=== PATIENT | female | born 1955 | race Caucasian/White ===

== ENCOUNTER 2020-04-26 15:15 | Outpatient (REF) | payer MEDICAID, SELFPAY | END 2020-04-26 15:16 | disposition home or self-care (01) | LOC: HO.LAB 15:15 | PROVIDERS: PCP Nurse Practitioner Family; Visit Provider Internal Medicine | DX: Z20.828 Contact with and (suspected) exposure to other viral communicable diseases (principal) | CPT/HCPCS: 36415; 87635 ==

== ENCOUNTER 2020-06-01 17:03 | Outpatient (REF) | payer MEDICAID, SELFPAY | END 2020-06-01 17:04 | disposition home or self-care (01) | LOC: HO.LAB 17:03 | PROVIDERS: PCP Nurse Practitioner Family; Visit Provider Internal Medicine | DX: Z20.828 Contact with and (suspected) exposure to other viral communicable diseases (principal) | CPT/HCPCS: C9803; U0003 ==

== ENCOUNTER 2020-06-07 15:00 | Outpatient (REF) | payer MEDICAID, SELFPAY | END 2020-06-07 15:01 | disposition home or self-care (01) | LOC: HO.LAB 15:00 | PROVIDERS: Visit Provider Internal Medicine | DX: Z20.828 Contact with and (suspected) exposure to other viral communicable diseases (principal) | CPT/HCPCS: C9803; U0003 ==

== ENCOUNTER 2021-05-19 13:51 | Outpatient (REF) | payer MEDICAID, SELFPAY ==
--- NOTE | ~2021-05-19 | XR_ITS ---
EXAMINATION: XR LUMBOSACRAL SPINE WITH OBLIQUES CLINICAL INFORMATION: Dorsalgia COMPARISON: 05/30/2018 TECHNIQUE: AP, both oblique, and lateral views of the lumbar spine. Lateral view of the lumbosacral junction. FINDINGS: No fracture or subluxation. Vertebral body height and alignment maintained. Rudimentary disc at S1-S2. Disc spaces are maintained throughout the lumbar spine. Tiny endplate osteophytes at the lower lumbar spine. The sacroiliac joints are symmetric. The sacrum appears intact. Nonobstructive bowel gas pattern. XR/XR lumbar spine 4V min IMPRESSION: Mild degenerative change at the lower lumbar spine.
== END 2021-05-19 13:52 | disposition home or self-care (01) ==
LOC: HO.XRAY 13:51
PROVIDERS: PCP General Practice; Visit Provider General Practice
DX: M54.89 Other dorsalgia (principal)
CPT/HCPCS: 72110

== ENCOUNTER 2021-09-09 16:21 | Emergency (ER) | payer MEDICAID, SELFPAY ==
--- NOTE | ~2021-09-09 | XR_ITS ---
EXAMINATION: XR CHEST CLINICAL INFORMATION: Shortness of breath. COMPARISON: Chest radiograph done on 04/02/[address] of the chest done on 04/23/2018. TECHNIQUE: Frontal view of the chest was obtained. FINDINGS: Previously documented multiple solid as well as cystic nodules best seen on prior CT study dated 04/23/2018 within the right hemithorax appear unchanged. The left lung field appears clear. Cardiac mediastinal silhouette is within normal limit. No evidence of any pleural effusion or pneumothorax. Overall, the radiographic appearance is stable since 04/02/2018. XR/XR chest 1V IMPRESSION: Stable radiographic appearance of the chest, unchanged since 04/02/2018.
[2021-09-09 16:40] VITALS: BP 130/70; PULSE 83; RESP 18; TEMP 37.2; O2SAT 96; BMI 32.8
--- NOTE | 2021-09-09 16:45 | ECG_ITS ---
Test Reason : DIFFICULTY BREATHING Blood Pressure : / mmHG Vent. Rate : 082 BPM Atrial Rate : 082 BPM P-R Int : 096 ms QRS Dur : 082 ms QT Int : 358 ms P-R-T Axes : -62 004 024 degrees QTc Int : 418 ms Normal sinus rhythm with short ME interval Abnormal ECG When compared with ECG of 16-DEC-2019 18:18, No significant changes when compared with the previous EKG of Referred By: Generic ED Physician Electronically Signed By:PHILLIP SULTANA MD
[2021-09-09 18:40] LABS: MANUAL DIFF FLAG NO
[2021-09-09 18:42] LABS: Basophils Absolute Auto 0.1 X10*3/uL (0.0-0.2); Basophils Percent Auto 0.8 % (0-2); Eosinophils Absolute Auto 0.1 X10*3/uL (0.0-0.4); Eosinophils Percent Auto 0.9 % (0-4); Hematocrit 39.1 % (37.0-47.0); Hemoglobin 12.9 g/dl (12.0-16.0); Imm Gran Abs Auto 0.02 X10*3/uL (0.00-0.03); Imm Gran Pct Auto 0.3 % (0.0-0.4); Lymphocytes Absolute Auto 2.6 X10*3/uL (1.2-4.9); Lymphocytes Percent Auto 33.8 % (20-40); Mean Corpuscular Hemoglobin 29.6 pg (27.0-33.0); Mean Corpuscular Volume 89.7 fL (80.0-98.0); Mean Platelet Volume 11.6 fL (9.4-12.3); Monocytes Absolute Auto 0.5 X10*3/uL (0.1-1.2); Monocytes Percent Auto 6.2 % (2-11); Neutrophils Absolute Auto 4.5 x10*3/uL (2.0-8.3); Platelet Count 207 X10*3/uL (160-400); Red Blood Count 4.36 X10*6/uL (4.20-5.50); Red Cell Distribution Width 13.3 % (11.0-16.0); White Blood Count 7.8 X10*3/uL (4.8-10.8)
[2021-09-09 18:56] LABS: Anion Gap 10 (12-20); Blood Urea Nitrogen 15 mg/dL (9-16); COVID-19 Test Negative (Negative); Carbon Dioxide 28 mmol/L (22-29); Chloride 101 mmol/L (96-108); Creatinine Clr Calc Pharmacy 69.1; Estimated Glomerular Filt Rate > 60; Glucose Random 275 mg/dL (60-115); Potassium 4.4 mmol/L (3.3-5.1); Sodium 135 mmol/L (135-145)
[2021-09-09 19:01] LABS: B Type Natriuretic Peptide 41 pg/mL (<100); Troponin-I High Sensitivity < 3.5 ng/L (<3.5-17.0)
--- NOTE | 2021-09-09 21:12 | ED_ITS ---
HPI - Asthma General Chief Complaint: Asthma Stated Complaint: diff breathing/chestpains Time Seen by Provider: 09/09/21 21:12 Source: patient Mode of arrival: ambulatory Limitations: no limitations History of Present Illness HPI Narrative: This is a 65-year-old female past medical history significant for asthma pr esenting to the emergency department with complaints of cough productive of thick yellow/green sputum, chest pain only when she coughs, shortness of breath on exertion, congestion x4 days progressively worsening. She tells me this feels like her typical asthma attack. She has been using her albuterol pumps and her nebulizer at home. She tells me she has not been around anyone who is sick. She denies fevers, chills, nausea, vomiting, abdominal pain, leg swelling, leg pain, calf pain, headache, dizziness, sore throat, ear pain. She has never required intubation for asthma. She appears comfortable, speaking in full sentences in no signs of acute distress. No use of accessory muscles. MD complaint: asthma attack Onset (ago): day(s) (4) Severity: moderate Context: none known Associated symptoms: productive cough Treatments Prior to Arrival: inhaled bronchodilator Related Data Previous Rx's Medication Instructions Recorded albuterol sulfate 90 mcg/actuation 2 inh INHALATION Q4-6H PRN #1 ea 09/09/21 breath activated powder inhaler azithromycin 250 mg tablet See Rx Instructions .ROUTE 09/09/21 .COMPLEX #6 tab prednisone 20 mg tablet 20 mg PO DAILY 5 Days #5 tab 09/09/21 Allergies Allergy/AdvReac Type Severity Reaction Status Date / Time almond [ALMOND] Allergy Severe ANAPHYLAXIS Unverified 04/08/20 15:54 loratadine Allergy Unknown Verified 10/13/19 00:00 penicillin G procaine Allergy Unknown Verified 01/12/20 00:00 penicillin V Allergy Unknown Verified 10/13/19 00:00 Penicillins Allergy Unknown SWELLING Unverified 04/08/20 15:54 [place] Allergy Unknown Uncoded 10/13/19 00:00 PEANUT BUTTER Allergy Unknown HIVES Uncoded 04/08/20 15:54 Review of Systems Review of Systems: Constitutional : No Weight loss, No Fever, No Chills, No Fatigue, No Malaise ENT/Mouth : No sore throat, No Rhinorrhea Eyes: No Eye Pain, No Swelling, No Redness Cardiovascular : + Chest Pain, + SOB, + Dyspnea on Exertion, No Orthopnea, No Edema, No Palpitations Respiratory : + Cough, No Sputum, No Wheezing Gastrointestinal : No Nausea, No Vomiting, No Diarrhea, No Constipation, No abdominal Pain, No Hematochezia, No Melena Genitourinary : No Dysuria, No Urinary Frequency, No Hematuria, Musculoskeletal : No joint pain, No Myalgias, No Joint Swelling Skin : No Skin Lesions, No rash Neuro : No Weakness, No Numbness, No Dizziness, No Headache All other systems reviewed and are negative Yes all other systems are reviewed and are negative [facility]LY [facility] Past Medical History Attestation statement: The following information was validated with the patient. Source: old records reviewed and nursing notes reviewed Social History Social History Advance Directives: No Patient : No Physical Exam Vital Signs: Vital Signs: Last Vital Signs Temp 98.9 F 09/09/21 16:40 Pulse 83 09/09/21 16:40 Resp 18 09/09/21 16:40 BP 130/70 09/09/21 16:40 Pulse Ox 96 09/09/21 16:40 BMI result Body Mass Index 32.8 VSS Appearance: Alert.? Oriented X3.? No acute distress.? No accessory muscle use for breathing. Head: Normocephalic, atraumatic, no step-offs or deformities Eyes: Pupils equal, round and reactive to light.? ENT: Pharynx normal.? Neck: Normal inspection.? Neck supple.? CVS: Normal heart rate and rhythm.? Pulses normal.? Respiratory: No respiratory distress.? Breath sounds normal.?No wheezing. Abdomen: Soft and nontender.? Skin: Skin warm and dry.? Normal skin color.? Normal skin turgor.? Extremities: No lower extremity edema.? No calf ttp negative Homans sign bilaterally 5/5 strength to bilateral upper and lower extremities Back: No midline tenderness, no C-spine tenderness, full range of motion, no CVA tenderness bilaterally Neuro: Oriented X 3.? No motor deficit.? No sensory deficit. Course Reevaluation(s) Reevaluation #1: CBC within normal limits. Chemistry with no acute electrolyte abnormalities. Troponin negative. D-dimer pending. COVID negative. X-ray appears to be a patient's baseline no acute findings. Time: 18:35 Reevaluation #2: D-dimer negative. Unlikely PE. Patient's discomfort has improved and she has been here. She will be sent home with prednisone, azithromycin and an inhaler. Advised her to return with new or worsening symptoms. Comfortable discharge home with PCP follow-up. Disucused EKG w/ attending non ischemic, negative trop patient not having chest pain. She should follow up with cardiology Time: 22:42 MDM - Asthma MDM Narrative Medical decision making narrative: 2109 65 yo f pmhx well controlled asthma presents to ed with URI sx X 4 days. Vaccinated for covid X2 unknown vaccine. No sick contact. PE benign. Hx and physical not consistent with pulmonary embolism (PERC score 1 for age) or acute coronary syndrome ( CP only present with cough). Unlikely pneumonia. Plan- labs, EKG, covid, chest xray Medical Records Attestation: I reviewed the patient's medical records. Lab Data Attestation: I reviewed the patient's lab results. Result diagrams: 09/09/21 18:34 09/09/21 18:34 Labs: Lab Results 09/09/21 09/09/21 09/09/21 Range/Units 18:34 18:34 18:34 WBC 7.8 (4.8-10.8) X10*3/uL RBC 4.36 (4.20-5.50) X10*6/uL Hgb 12.9 (12.0-16.0) g/dl Hct 39.1 (37.0-47.0) % MCV 89.7 (80.0-98.0) fL MCH 29.6 (27.0-33.0) pg MCHC 33.0 (31.0-35.0) g/dl RDW 13.3 (11.0-16.0) % Plt Count 207 (160-400) X10*3/uL MPV 11.6 (9.4-12.3) fL Immature Gran % (Auto) 0.3 (0.0-0.4) % Neut % (Auto) 58.0 (45-73) % Lymph % (Auto) 33.8 (20-40) % Waller % (Auto) 6.2 (2-11) % Eos % (Auto) 0.9 (0-4) % Baso % (Auto) 0.8 (0-2) % Lymph # (Auto) 2.6 (1.2-4.9) X10*3/uL Waller # (Auto) 0.5 (0.1-1.2) X10*3/uL Eos # (Auto) 0.1 (0.0-0.4) X10*3/uL Baso # (Auto) 0.1 (0.0-0.2) X10*3/uL Abs Immat Gran (auto) 0.02 (0.00-0.03) X10*3/uL Absolute Neuts (auto) 4.5 (2.0-8.3) x10*3/uL Absolute Nucleated RBC 0.000 (0.0-0.012) X10*3/uL Nucleated RBC % (auto) 0.0 (0.0-0.2) /100WBC D-Dimer High Sensitivty NG/ML Sodium 135 (135-145) mmol/L Potassium 4.4 (3.3-5.1) mmol/L Chloride 101 (96-108) mmol/L Carbon Dioxide 28 (22-29) mmol/L Anion Gap 10 L (12-20) BUN 15 (9-16) mg/dL Creatinine 0.76 (0.5-1.4) mg/dL Estim Creat Clear Calc 69.1 Estimated GFR > 60 Random Glucose 275 H (60-115) mg/dL Calcium 10.0 (8.4-10.2) mg/dL Troponin I High Sens (<3.5-17.0) ng/L B-Natriuretic Peptide (<100) pg/mL COVID-19 (TRE) Negative (Negative) COVID-19 Clin Com See Note 09/09/21 09/09/21 Range/Units 18:34 21:22 WBC (4.8-10.8) X10*3/uL RBC (4.20-5.50) X10*6/uL Hgb (12.0-16.0) g/dl Hct (37.0-47.0) % MCV (80.0-98.0) fL MCH (27.0-33.0) pg MCHC (31.0-35.0) g/dl RDW (11.0-16.0) % Plt Count (160-400) X10*3/uL MPV (9.4-12.3) fL Immature Gran % (Auto) (0.0-0.4) % Neut % (Auto) (45-73) % Lymph % (Auto) (20-40) % Waller % (Auto) (2-11) % Eos % (Auto) (0-4) % Baso % (Auto) (0-2) % Lymph # (Auto) (1.2-4.9) X10*3/uL Waller # (Auto) (0.1-1.2) X10*3/uL Eos # (Auto) (0.0-0.4) X10*3/uL Baso # (Auto) (0.0-0.2) X10*3/uL Abs Immat Gran (auto) (0.00-0.03) X10*3/uL Absolute Neuts (auto) (2.0-8.3) x10*3/uL Absolute Nucleated RBC (0.0-0.012) X10*3/uL Nucleated RBC % (auto) (0.0-0.2) /100WBC D-Dimer High Sensitivty 152 NG/ML Sodium (135-145) mmol/L Potassium (3.3-5.1) mmol/L Chloride (96-108) mmol/L Carbon Dioxide (22-29) mmol/L Anion Gap (12-20) BUN (9-16) mg/dL Creatinine (0.5-1.4) mg/dL Estim Creat Clear Calc Estimated GFR Random Glucose (60-115) mg/dL Calcium (8.4-10.2) mg/dL Troponin I High Sens < 3.5 (<3.5-17.0) ng/L B-Natriuretic Peptide 41 (<100) pg/mL COVID-19 (TRE) (Negative) COVID-19 Purveyour Com ECG Data Attestation: I personally reviewed and interpreted this ECG as follows: ECG interpretation date: 09/09/21 ECG interpretation time: 21:15 Prior ECG tracings: available for review Interpretation: Ventricular rate of 82, MD short, QRS normal, QT/QTC normal. EKG shows a junctional tachycardia with short MD. No ST elevations or inversions concerning for ischemia. When compared to EKG of November 2019 it appears as though patient is now having a junctional rhythm rather than sinus tachycardia. Critical Care Time Critical Care Time Critical Care Time: No Discharge Plan Discharge Clinical Impression: Bronchitis Patient Disposition: Home, Self-Care Instructions: Acute Bronchitis (ED), How to Use a Dry-Powder Inhaler (ED) Additional Instructions: Take your medications as prescribed. If you were prescribed antibiotics today, it is important that you take your medication to their entirety, do not skip any doses, do not finish them early. Follow-up with your primary care provider this week. Return to the emergency department with new or worsening symptoms. Such as chest pain, shortness of breath, fevers, chills, leg swelling, calf pain, nausea, vomiting, diarrhea, headache, dizziness, weakness, changes in speech or ambulation. In case of emergency call 911 Your EKG showed some changes please follow up with cardiology Prescriptions: New azithromycin 250 mg tablet See Rx Instructions .ROUTE .COMPLEX Qty: 6 0RF Rx Instructions: For 250 mg dose pack: take 500 mg today (day 1), then 250 mg for 4 days (days 2-5) albuterol sulfate 90 mcg/actuation aerosol powdr breath activated 2 inh inhalation Q4-6H PRN (Reason: shortness of breath) Qty: 1 0RF prednisone 20 mg tablet 20 mg PO DAILY 5 Days Qty: 5 0RF Referrals: Galina Arrington MD [Primary Care Provider] - 2 days Mac Solomon MD [Physician] - 3 days Stand Alone Forms: Work/School Release
[2021-09-09] MEDS: Albuterol Sulfate 90 MCG 8 GM INHALER 2 PUFF INHALE (22:03)
[2021-09-09 22:27] LABS: D Dimer High Sensitivity 152 NG/ML
== END 2021-09-09 23:12 | disposition home or self-care (01) ==
PROVIDERS: Physician Assistant; Emergency Provider Emergency Medicine; PCP General Practice
DX: J40 Bronchitis, not specified as acute or chronic (principal); R06.02 Shortness of breath; Z20.822 Contact with and (suspected) exposure to COVID-19
CPT/HCPCS: 36415; 71045; 80048; 83880; 84484; 85025; 85379; 87635; 93005; 99284

== ENCOUNTER 2022-01-05 14:46 | Outpatient (REF) | payer MEDICAID, SELFPAY ==
--- NOTE | ~2022-01-05 | MM_ITS ---
EXAMINATION: MM SCREENING DIGITAL BREAST TOMOSYNTHESIS, BILATERAL CLINICAL INFORMATION: Screening. Asymptomatic. The lifetime risk of breast cancer based on the Tyrer-Cuzick Model is 4%. COMPARISON: Mammography: 12/12/2018, 04/16/2017, 08/11/2015 TECHNIQUE: Digital breast tomosynthesis is performed in both the craniocaudal and mediolateral oblique views along with computer-aided detection (CAD). Synthesized 2D images are generated from the tomosynthesis. FINDINGS: There are scattered areas of fibroglandular density (ACR BI-RADS breast composition Category b). Parenchymal pattern is similar to prior exams. There is scattered benign-appearing smooth nodularity bilateral outer breasts and anterior central right breast. There is no developing density or interval architectural abnormality. Some scattered vascular and punctate benign round and rim calcifications are again seen. The axilla and skin contours are unremarkable. MM/MM tomosynthesis screening BI IMPRESSION: No significant changes from prior exams. ASSESSMENT: BI-RADS 2: Benign RECOMMENDATION: Routine annual mammography screening. This patient's information was entered into a reminder system with a target due date for their next mammogram.
== END 2022-01-05 14:47 | disposition home or self-care (01) ==
LOC: HO.MAMMO 14:46
PROVIDERS: PCP General Practice; Visit Provider General Practice
DX: Z12.31 Encounter for screening mammogram for malignant neoplasm of breast (principal)
CPT/HCPCS: 77063; 77067

== ENCOUNTER → 2022-04-26 15:21 | Outpatient (BNVA) | payer MEDICAID, SELFPAY | PROVIDERS: PCP General Practice; Visit Provider Surgery | DX: K64.4 Residual hemorrhoidal skin tags (principal); D17.22 Benign lipomatous neoplasm of skin and subcutaneous tissue of left arm; D17.21 Benign lipomatous neoplasm of skin and subcutaneous tissue of right arm | CPT/HCPCS: 46600; 99202 ==

== ENCOUNTER 2023-02-16 19:22 | Outpatient (REF) | payer MEDICAID, SELFPAY | END 2023-02-16 19:23 | disposition home or self-care (01) | LOC: HO.HHCLNP 19:22 | PROVIDERS: Visit Provider General Practice | DX: Z13.89 Encounter for screening for other disorder (principal) ==

== ENCOUNTER 2023-02-16 19:23 | Outpatient (REF) | payer OTHER, MEDICAID, SELFPAY ==
[2023-02-17 14:35] LABS: BV Int Neg Control Negative (Negative); BV Int Pos Control Positive (Positive)
[2023-02-23 06:10] LABS: HPV mRNA E6/E7 rflx Not Detected (Not Detected)
== END 2023-02-16 19:24 | disposition home or self-care (01) ==
LOC: HO.HHCLNP 19:23
PROVIDERS: Visit Provider General Practice
DX: Z01.419 Encounter for gynecological examination (general) (routine) without abnormal findings (principal)
CPT/HCPCS: 87480; 87510; 87624; 87660; 88142

== ENCOUNTER 2023-08-28 | Outpatient (REF) | payer OTHER, SELFPAY | END 2023-08-28 00:01 | disposition home or self-care (01) | LOC: HO.HHCLNP | PROVIDERS: Visit Provider Emergency Medicine | DX: R10.9 Unspecified abdominal pain (principal); R30.0 Dysuria | CPT/HCPCS: 87086 ==

== ENCOUNTER 2023-10-24 14:43 | Outpatient (REF) | payer OTHER, SELFPAY ==
[2023-10-24 16:03] LABS: MANUAL DIFF FLAG NO
[2023-10-24 17:36] LABS: Basophils Percent Auto 0.7 % (0-2); Eosinophils Absolute Auto 0.1 X10*3/uL (0.0-0.4); Eosinophils Percent Auto 1.7 % (0-4); Hemoglobin 14.9 g/dl (12.0-16.0); Imm Gran Abs Auto 0.01 X10*3/uL (0.00-0.03); Imm Gran Pct Auto 0.2 % (0.0-0.4); Lymphocytes Absolute Auto 2.3 X10*3/uL (1.2-4.9); Mean Corpuscular HGB Conc 32.4 g/dl (31.0-35.0); Mean Corpuscular Hemoglobin 29.4 pg (27.0-33.0); Mean Corpuscular Volume 90.7 fL (80.0-98.0); Mean Platelet Volume 12.5 fL (9.4-12.3); Monocytes Absolute Auto 0.4 X10*3/uL (0.1-1.2); Monocytes Percent Auto 7.6 % (2-11); Neutrophils Absolute Auto 2.9 x10*3/uL (2.0-8.3); Neutrophils Percent Auto 49.8 % (45-73); Platelet Count 191 X10*3/uL (160-400); Red Blood Count 5.07 X10*6/uL (4.20-5.50); White Blood Count 5.8 X10*3/uL (4.8-10.8)
[2023-10-24 19:13] LABS: Alanine Aminotransferase 21 U/L (0-31); Alkaline Phosphatase 97 U/L (39-117); Anion Gap 10 (12-20); Aspartate Amino Transferase 15 U/L (5-31); Bilirubin Total 0.4 mg/dL (0.0-1.0); Blood Urea Nitrogen 20 mg/dL (9-16); Calcium 10.4 mg/dL (8.4-10.2); Carbon Dioxide 30 mmol/L (22-29); Chloride 102 mmol/L (96-108); Estimated Glomerular Filt Rate > 60; Glucose Random 427 mg/dL (60-115); Sodium 138 mmol/L (135-145); Total Protein 8.1 g/dL (6.5-8.0)
== END 2023-10-24 14:44 | disposition home or self-care (01) ==
LOC: HO.LAB 14:43
PROVIDERS: PCP General Practice; Visit Provider Nurse Practitioner
DX: Z01.818 Encounter for other preprocedural examination (principal); D12.6 Benign neoplasm of colon, unspecified
CPT/HCPCS: 36415; 80053; 85025

== ENCOUNTER 2024-05-26 22:50 | Emergency (ER) | payer OTHER, SELFPAY ==
--- NOTE | ~2024-05-26 | CT_ITS ---
EXAMINATION: CT ABDOMEN AND PELVIS WITHOUT CONTRAST CLINICAL INFORMATION: Abdominal pain. COMPARISON: April 21, 2015 TECHNIQUE: Multidetector volumetric imaging was performed from the superior aspect of the liver through the pubic symphysis. Sagittal and coronal reformatted images were obtained on the technologist's workstation. This CT examination was performed using dose optimization techniques as appropriate, variously including the following: *Automated exposure control *Adjustment of mA and/or kV according to patient size (this includes techniques or standardized protocols for targeted exams where dose is matched to indication/reason for exam; i.e. extremities or head) *Use of iterative reconstruction technique DLP: 523 mGy-cm FINDINGS: LUNG BASES: There is scarring at the right lung base. LIVER, GALLBLADDER, AND BILIARY TREE: The liver is normal in size, shape, and attenuation. No focal hepatic lesion or biliary ductal dilatation is present. The gallbladder is unremarkable with no evidence of radiopaque gallstones, gallbladder wall thickening, or obvious pericholecystic inflammatory changes. PANCREAS: Unremarkable. SPLEEN: Unremarkable. ADRENAL GLANDS: There is left adrenal gland nodularity similar to prior. KIDNEYS AND URETERS: The kidneys are normal in size, shape, and attenuation. No hydronephrosis, hydroureter, or calculi seen. No perinephric stranding. BLADDER: Unremarkable. GASTROINTESTINAL TRACT: The small and large bowel are unremarkable. The appendix is unremarkable. ABDOMINAL WALL: No significant hernia is appreciated. LYMPH NODES: Normal. VASCULAR: There is mild atherosclerotic plaque of the abdominal aorta. PELVIC VISCERA: Unremarkable. OSSEOUS STRUCTURES: Unremarkable. CT/CT abdomen pelvis wo IV con IMPRESSION: No acute intra-abdominal or pelvic abnormality. Fleischner guidelines were followed. Electronically signed by: Alec Mazariegos MD 05/27/2024 04:52 AM EST
[2024-05-26 22:54] VITALS: BP 145/79; PULSE 83; RESP 20; TEMP 36.8; O2SAT 97; BMI 29.3
[2024-05-26 23:46] LABS: MANUAL DIFF FLAG NO
[2024-05-26 23:49] LABS: Basophils Absolute Auto 0.1 X10*3/uL (0.0-0.2); Basophils Percent Auto 0.6 % (0-2); Eosinophils Absolute Auto 0.1 X10*3/uL (0.0-0.4); Eosinophils Percent Auto 1.3 % (0-4); Hematocrit 41.9 % (37.0-47.0); Hemoglobin 13.8 g/dl (12.0-16.0); Imm Gran Abs Auto 0.02 X10*3/uL (0.00-0.03); Imm Gran Pct Auto 0.2 % (0.0-0.4); Lymphocytes Absolute Auto 2.5 X10*3/uL (1.2-4.9); Lymphocytes Percent Auto 30.1 % (20-40); Mean Corpuscular HGB Conc 32.9 g/dl (31.0-35.0); Mean Corpuscular Hemoglobin 30.1 pg (27.0-33.0); Mean Corpuscular Volume 91.5 fL (80.0-98.0); Monocytes Absolute Auto 0.6 X10*3/uL (0.1-1.2); Monocytes Percent Auto 7.4 % (2-11); Neutrophils Absolute Auto 5.1 x10*3/uL (2.0-8.3); Neutrophils Percent Auto 60.4 % (45-73); Platelet Count 205 X10*3/uL (160-400); Red Blood Count 4.58 X10*6/uL (4.20-5.50); Red Cell Distribution Width 12.9 % (11.0-16.0); White Blood Count 8.4 X10*3/uL (4.8-10.8)
[2024-05-27 00:02] LABS: Alanine Aminotransferase 23 U/L (0-31); Alkaline Phosphatase 77 U/L (39-117); Anion Gap 9 (12-20); Aspartate Amino Transferase 22 U/L (5-31); Bilirubin Total 0.3 mg/dL (0.0-1.0); Blood Urea Nitrogen 11 mg/dL (9-16); Calcium 9.9 mg/dL (8.4-10.2); Carbon Dioxide 29 mmol/L (22-29); Chloride 105 mmol/L (96-108); Creatinine Clr Calc Pharmacy 56.7; Estimated Glomerular Filt Rate > 60; Glucose Random 142 mg/dL (60-115); Potassium 4.2 mmol/L (3.3-5.1); Sodium 139 mmol/L (135-145)
--- NOTE | 2024-05-27 02:13 | ED_ITS ---
HPI - Abdominal Pain General Chief Complaint: Abdominal Pain Stated Complaint: R Side Stomach Pain Time Seen by Provider: 05/27/24 02:07 Source: patient and recruiting assistant Mode of arrival: ambulatory Limitations: no limitations History of Present Illness ED Provider: DR. Toledo HPI narrative: 68-year-old female for evaluation of right-sided abdominal pain started 4 days ago that is getting worse since yesterday, pain is associated with nausea, no vomiting, no blood in the stool, no diarrhea, no fever, no chills. intra-abdominal surgery is significant for tubal ligation, last bowel movement was this with normal or diarrhea. No dysuria, no frequency urination, no blood in the urine. Related Data Home Medications ?Medication ?Instructions ?Recorded ?Confirmed diphenhydramine HCl 25 mg tablet 25 mg PO BEDTIME PRN allergies 10/24/23 (Banophen) dulaglutide 0.75 mg/0.5 mL mg subcut 10/24/23 subcutaneous pen injector (Trulicity) fluticasone propionate 50 2 spray intranasal DAILY PRN 10/24/23 mcg/actuation nasal spray,suspension gabapentin 300 mg capsule 300 mg PO TID 10/24/23 glipizide 5 mg tablet, extended 5 mg PO DAILY 10/24/23 release 24 hr isosorbide mononitrate 60 mg 60 mg PO QAM 10/24/23 tablet,extended release 24 hr meclizine 25 mg tablet 25 mg PO TID PRN 10/24/23 montelukast 10 mg tablet 10 mg PO DAILY 10/24/23 pantoprazole 40 mg tablet,delayed 40 mg PO QAM 10/24/23 release rosuvastatin 40 mg tablet 40 mg PO DAILY 10/24/23 Previous Rx's ?Medication ?Instructions ?Recorded albuterol sulfate 90 mcg/actuation 2 inh inhalation Q4-6H PRN 09/09/21 breath activated powder inhaler shortness of breath #1 ea bisacodyl 5 mg tablet,delayed 10 mg (2 x 5 mg) PO BEDTIME 2 days 10/24/23 release (Dulcolax (bisacodyl)) #4 tabs peg 3350-electrolytes 236 240 ml PO Q10M 1 day #4,000 mL 10/24/23 gram-22.74 gram-6.74 gram-5.86 gram solution (Golytely) Allergies Allergy/AdvReac Type Severity Reaction Status Date / Time almond [ALMOND] Allergy Severe ANAPHYLAXIS Verified 05/26/24 22:55 penicillin G procaine Allergy Unknown Unknown Verified 05/26/24 22:55 penicillin V Allergy Unknown Unknown Verified 05/26/24 22:55 Penicillins Allergy Unknown SWELLING Verified 05/26/24 22:55 Review of Systems Review of Systems All other systems are reviewed and are negative Constitutional: Reports as per HPI and Reports no additional constitutional complaints Eyes: Reports as per HPI and Reports no additional eye complaints Reports system reviewed and no additional complaints, except as documented Cardiovascular: Reports as per HPI and Reports no additional cardiovascular complaints Respiratory: Reports as per HPI and Reports no additional respiratory complaints Gastrointestinal: Reports as per HPI and Reports no additional gastrointestinal complaints Genitourinary: Reports no additional female genitourinary complaints Musculoskeletal: Reports no additional musculoskeletal complaints Skin/Breast: Reports system reviewed and no additional complaints, except as docu Psychiatric: Reports no additional psychiatric complaints Endocrine: Reports no additional endocrine complaints Hematologic/Lymphatic: Reports no additional hematologic/lymphatic complaints Allergic/Immunologic: Reports no additional allergic/immunologic complaints Reports system reviewed and no additional complaints, except as documented and Reports Abnormal speech present [facility] Past Medical History Medical History Multiple lipomas External hemorrhoids Surgical History H/O tubal ligation H/O colonoscopy Family History Family History Sister Lung cancer Social History Social History Alcohol intake: never Patient Tobacco Use Status: Never used Tobacco Advance Directives: No Advance Directives Information Provided: No Physical Exam ED Vital Signs: Vital Signs - 24 hr 05/26/24 22:54 05/27/24 03:30 Temperature 98.3 F 97.9 F Pulse Rate 83 73 Respiratory Rate 20 16 Blood Pressure 145/79 H 108/49 L Pulse Oximetry 97 97 Oxygen Delivery Method Room Air Room Air BMI result Body Mass Index 29.3 Vital signs have been reviewed and appear to be correct. Blood pressure elevated. Heart rate normal. Respiratory rate normal. Temperature normal. Oxygen saturation normal. Appearance: Alert. Oriented X3. No acute distress. Head: Normal external exam. Normocephalic. Atraumatic. No Lewis signs noted. No raccoon eyes noted Eyes: PERRLA. EOMI. Conjunctiva and sclera normal. Eyelids normal. ENT: TM's Normal. Pharynx normal. Uvula midline. Moist mucous membranes. No trismus noted. No drooling noted. No muffled voice noted. Neck: Normal inspection. Neck supple. FROM. No adenopathy. Thyroid Normal. No meningeal signs. No neck mass noted. CVS: Normal heart rate and rhythm. Heart sound normal. No murmurs noted. Pulses normal throughout. Respiratory: No respiratory distress. Painless inspiration. Breath sounds normal. No wheezes/rales/rhonchi noted. Chest nontender. No accessory muscle usage noted or decreased air movement noted. Abdomen: Soft, mild right lower quadrant abdominal tenderness, no rebound tenderness, no guarding. Bowel sounds normal in all 4 quadrants. No distention noted. No organomegaly noted. No visible injury noted. Back: No CVA tenderness. Full range of motion noted. Skin: Skin warm and dry. Normal skin color. Normal skin turgor. No rashes/lesions/lacerations noted. Extremities: No lower extremity edema. Extremities exhibit normal range of motion. Extremities nontender. Neuro: Oriented X 3. Cranial nerve exam: II-XII are grossly intact No motor deficit. No sensory deficit. Reflexes normal. Course Reevaluation(s) Reevaluation #1: Unremarkable CT abdomen and pelvis normal appendix on the CT, labs are unremarkable, no UTI. Will discharge to follow-up with PCP abdominal pain is likely secondary abdominal wall muscle. Instructed to use Tylenol/ibuprofen if needed. Time: 05:01 Medical Decision Making Differential Diagnosis Differential Diagnoses: The differential diagnosis associated with the presentation includes (Acute appendicitis, colitis, diverticulitis, hernia, electrolyte derangement, UTI, pyelonephritis, obstructive uropathy, severe anemia.) Admission/Observation Consideration of admission/observation: Escalation of care including admission/observation considered Lab Data MDM Lab Attestation statement: I reviewed the patient's lab results. 05/26/24 23:42 05/26/24 23:42 Labs: Lab Results 05/26/24 05/27/24 Range/Units 23:42 02:19 WBC 8.4 (4.8-10.8) X10*3/uL RBC 4.58 (4.20-5.50) X10*6/uL Hgb 13.8 (12.0-16.0) g/dl Hct 41.9 (37.0-47.0) % MCV 91.5 (80.0-98.0) fL MCH 30.1 (27.0-33.0) pg MCHC 32.9 (31.0-35.0) g/dl RDW 12.9 (11.0-16.0) % Plt Count 205 (160-400) X10*3/uL MPV 11.0 (9.4-12.3) fL Immature Gran % (Auto) 0.2 (0.0-0.4) % Neut % (Auto) 60.4 (45-73) % Lymph % (Auto) 30.1 (20-40) % [place] % (Auto) 7.4 (2-11) % Eos % (Auto) 1.3 (0-4) % Baso % (Auto) 0.6 (0-2) % Lymph # (Auto) 2.5 (1.2-4.9) X10*3/uL [place] # (Auto) 0.6 (0.1-1.2) X10*3/uL Eos # (Auto) 0.1 (0.0-0.4) X10*3/uL Baso # (Auto) 0.1 (0.0-0.2) X10*3/uL Abs Immat Gran (auto) 0.02 (0.00-0.03) X10*3/uL Absolute Neuts (auto) 5.1 (2.0-8.3) x10*3/uL Absolute Nucleated RBC 0.000 (0.0-0.012) X10*3/uL Nucleated RBC % (auto) 0.0 (0.0-0.2) /100WBC Sodium 139 (135-145) mmol/L Potassium 4.2 (3.3-5.1) mmol/L Chloride 105 (96-108) mmol/L Carbon Dioxide 29 (22-29) mmol/L Anion Gap 9 L (12-20) BUN 11 (9-16) mg/dL Creatinine 0.84 (0.5-1.4) mg/dL Estim Creat Clear Calc 56.7 Estimated GFR > 60 Random Glucose 142 H (60-115) mg/dL Calcium 9.9 (8.4-10.2) mg/dL Total Bilirubin 0.3 (0.0-1.0) mg/dL AST 22 (5-31) U/L ALT 23 (0-31) U/L Alkaline Phosphatase 77 (39-117) U/L Total Protein 8.0 (6.5-8.0) g/dL Albumin 4.0 (3.5-5.0) g/dL Urine Color Yellow Urine Appearance Clear Urine pH 6.5 (5.0-9.0) Ur Specific [place] 1.020 (1.005-1.025) Urine Protein Negative (Neg-Trace) mg/dL Urine Glucose (UA) Negative (Negative) mg/dL Urine Ketones Negative (Negative) mg/dL Urine Blood Negative (Negative) Urine Nitrite Negative (Negative) Ur Leukocyte Esterase Trace H (Negative) Urine RBC 0-2 (0-2) /HPF Urine WBC 0-5 (0-5) /HPF Ur Squamous Epith Cells 0-2 (0-2) /HPF Urine Bacteria None Seen (None Seen) Hyaline Casts 0-2 (0-2) /LPF Independent Interpretation I performed an independent interpretation of an: CT Scan (Abdomen and pelvis:No acute intra-abdominal or pelvic abnormality. ) Radiology Impression Discussion of test interpretation with radiology: I have reviewed the radiologist's reading. Discharge Plan Discharge Clinical Impression: Abdominal wall pain Patient Disposition: Home, Self-Care Instructions: Abdominal Pain (ED) Prescriptions: No Action albuterol sulfate 90 mcg/actuation aerosol powdr breath activated 2 inh inhalation Q4-6H PRN (Reason: shortness of breath) Qty: 1 0RF peg 3350-electrolytes [Golytely] 236-22.74-6.74 -5.86 gram recon soln 240 ml PO Q10M 1 Days Qty: 4000 0RF Rx Instructions: until fecal effluent is clear; do not exceed a total volume of 2,000 mL bisacodyl [Dulcolax (bisacodyl)] 5 mg tablet,delayed release (DR/EC) 10 mg PO BEDTIME 2 Days Qty: 4 0RF Trulicity 0.75 mg/0.5 mL pen injector subcut gabapentin 300 mg capsule 300 mg PO TID rosuvastatin 40 mg tablet 40 mg PO DAILY glipizide 5 mg tablet extended release 24hr 5 mg PO DAILY meclizine 25 mg tablet 25 mg PO TID PRN fluticasone propionate 50 mcg/actuation spray,suspension 2 spray intranasal DAILY PRN montelukast 10 mg tablet 10 mg PO DAILY isosorbide mononitrate 60 mg tablet extended release 24 hr 60 mg PO QAM pantoprazole 40 mg tablet,delayed release (DR/EC) 40 mg PO QAM diphenhydramine HCl [Banophen] 25 mg tablet 25 mg PO BEDTIME PRN (Reason: allergies) Referrals: Galina Arrington MD [Primary Care Provider] - Print Language: Persian
[2024-05-27 02:25] LABS: Appearance Urine Clear; Color Urine Yellow; Glucose Urine UA Negative (Negative); Leukocyte Esterase Urine Trace (Negative); Nitrite Urine Negative (Negative); PH 6.5 (5.0-9.0); UMIC TRIGGER UACC YES; Urine Blood Negative (Negative); Urine Ketones Negative (Negative); Urine Protein Negative (Neg-Trace)
[2024-05-27 02:30] LABS: Bacteria Urine None Seen (None Seen); Hyaline Casts Urine 0-2 /LPF (0-2); RBC Urine 0-2 /HPF (0-2); Squamous Epithelial Cell Urine 0-2 /HPF (0-2); WBC Urine 0-5 /HPF (0-5)
[2024-05-27 03:30] VITALS: BP 108/49; PULSE 73; RESP 16; TEMP 36.6; O2SAT 97
[2024-05-27 05:38] VITALS: BP 108/49; PULSE 73; RESP 16; TEMP 36.6; O2SAT 97
== END 2024-05-27 05:39 | disposition home or self-care (01) ==
PROVIDERS: Emergency Provider Emergency Medicine; PCP General Practice
DX: R10.2 Pelvic and perineal pain (principal); R10.31 Right lower quadrant pain; Z79.899 Other long term (current) drug therapy
CPT/HCPCS: 36415; 74176; 80053; 81001; 85025; 99283; 99284

== ENCOUNTER 2024-06-03 08:34 | Day surgery (SDC) | payer OTHER, SELFPAY ==
[2024-05-30 09:26] VITALS: BMI 29.5
--- NOTE | 2024-06-03 08:43 | MHC.SHP ---
Pre-Procedural Eval Section A - 24 Hr Update-Section A only Date of Service: 06/03/24 Section B - Complete if H&P > 30 days Chief Complaint: History of polyps Details of Present Illness: Allergic rhinitis Asthma/COPD Coronary artery disease Hypertension High cholesterol Diabetes Alopecia Constipation - pt denies GERD Nephrolithiasis * SURGICAL HISTORY Tubal ligation carotid stent r/t stenosis left COlonoscopy Hx of TA Removal renal stones (not lithotripsy) * ALLERGIES [place] Peanuts Loratadine Penicillin * [place] [facility] LABS: NONE SINCE 2021 2015 COLONOSCOPY Allergies: Allergies Allergy/AdvReac Type Severity Reaction Status Date / Time almond [ALMOND] Allergy Severe ANAPHYLAXIS Verified 05/26/24 22:55 Penicillins Allergy Intermediate SWELLING Verified 05/30/24 09:14 Review of Systems Review of Systems Comment: Ten point ROS negative Exam Exam Comment: Gen appear: No acute distress HEENT: no icterus Chest: No overt resp distress Abd: soft, nontender, nondistended Psych: Stable affect, answering questions appropriately Neuro: A/Ox3 noted to move all extremities spontaneously Ext: no peripheral edema Plan Diagnosis/Plan: Unchanged I have reviewed the history and physical and performed a pertinent physical examination on my patient. No changes have occurred unless specified. Time Spent With Patient Time: Total time managing care of this patient today ____ minutes.
--- NOTE | 2024-06-03 08:55 | ECG_ITS ---
Test Reason : preop Blood Pressure : / mmHG Vent. Rate : 071 BPM Atrial Rate : 071 BPM P-R Int : 092 ms QRS Dur : 086 ms QT Int : 394 ms P-R-T Axes : 000 017 031 degrees QTc Int : 428 ms Sinus rhythm with short TN Otherwise normal ECG When compared with ECG of 09-SEP-2021 18:37, No significant change was found Referred By: Jennie Gomez Electronically Signed By:Luis Lopez
[2024-06-03 08:58] VITALS: BMI 29.5
--- NOTE | 2024-06-03 09:13 | P.CONAN_ITS ---
HPI - Anesthesia Eval Consult details Narrative: 68 yo female patient for Colonoscopy [facility] Active Problems Active Problems: All Active Problems Tubular adenoma of colon (Acute) Pre-op examination (Acute) Constipation (Acute) GERD (gastroesophageal reflux disease) (Acute) Alopecia (Acute) Nephrolithiasis (Acute) Diabetes (Acute) High cholesterol (Acute) Hypertension (Acute) Coronary artery disease (Acute). Stent 2001. Denies recent chest pain. Uses aspirin intermittently. Does not have a Customer Account Coordinator. Advised to follow up with PCP for referral to Customer Account Coordinator Allergic rhinitis (Acute) Asthma with COPD (Acute). Inhaler prn Multiple lipomas (Acute) External hemorrhoids (Acute) Past Medical History Medical History Renal calculi Asthma with COPD Elevated cholesterol CAD (coronary artery disease) HTN (hypertension) GERD (gastroesophageal reflux disease) Diabetes Multiple lipomas External hemorrhoids Family History Family History Sister Lung cancer Family history of problems with anesthesia: No Surgical History Surgical History (Updated 06/03/24 @ 09:36 by Penny Uribe MD) H/O heart artery stent H/O tubal ligation H/O colonoscopy History of Problems with Anesthesia: No Social History Social History Alcohol intake: never Patient Tobacco Use Status: Never used Tobacco Meds Allergies Allergy/AdvReac Type Severity Reaction Status Date / Time almond [ALMOND] Allergy Severe ANAPHYLAXIS Verified 05/26/24 22:55 Penicillins Allergy Intermediate SWELLING Verified 05/30/24 09:14 Home Medications ?Medication ?Instructions ?Recorded ?Confirmed ?Last Taken ?Type diphenhydramine HCl 25 mg tablet 25 mg PO BEDTIME PRN allergies 10/24/23 05/30/24 Unknown History (Banophen) dulaglutide 0.75 mg/0.5 mL 0.75 mg subcut QWEEK 10/24/23 05/30/24 Unknown History subcutaneous pen injector (Trulicity) fluticasone propionate 50 2 spray intranasal DAILY PRN Nasal 10/24/23 05/30/24 Unknown History mcg/actuation nasal Congestion spray,suspension gabapentin 300 mg capsule 300 mg PO TID 10/24/23 05/30/24 Unknown History glipizide 5 mg tablet, extended 5 mg PO DAILY 10/24/23 05/30/24 Unknown History release 24 hr isosorbide mononitrate 60 mg 60 mg PO QAM 10/24/23 05/30/24 Unknown History tablet,extended release 24 hr meclizine 25 mg tablet 25 mg PO TID PRN Vertigo 10/24/23 05/30/24 Unknown History montelukast 10 mg tablet 10 mg PO DAILY 10/24/23 05/30/24 Unknown History pantoprazole 40 mg tablet,delayed 40 mg PO QAM 10/24/23 05/30/24 Unknown History release rosuvastatin 40 mg tablet 40 mg PO DAILY 10/24/23 05/30/24 Unknown History acetaminophen 650 mg 1,300 mg PO Q8H PRN Pain 05/30/24 05/30/24 Unknown History tablet,extended release cholecalciferol (vitamin D3) 50 50 mcg PO QAM 05/30/24 05/30/24 Unknown History mcg (2,000 unit) capsule cyclobenzaprine 10 mg tablet 10 mg PO BEDTIME PRN low back pain 05/30/24 05/30/24 Unknown History duloxetine 20 mg capsule,delayed 20 mg PO DAILY pain 05/30/24 05/30/24 Unknown History release metformin 500 mg tablet,extended 500 mg PO TID 05/30/24 05/30/24 Unknown History release 24 hr Exam Height,Weight and Vital Signs: Height 5 ft Weight 68.492 kg Vital Signs Temp Pulse Resp BP Pulse Ox O2 Del Method 06/03/24 09:22 98.6 F 74 16 141/72 H 96 Room Air Pertinent Lab Results Pertinent Lab Results: Lab Results 06/03/24 Range/Units 09:16 POC Glucose 153 H (60-115) mg/dL Airway Mallampati Class: III (Small mouth) TM Dist: >3cm Neck ROM: Full Loose/Missing/Broken Teeth: No (Denies broken, loose, missing teeth. [place] intact) Heart: RRR Lungs: CTAB Assessment and Plan Assessment Anesthesia Assessment: Anesthesia Plan Discussed and Chart Reviewed Final Anesthetic Review Family History of Problems with Anesthesia: No History of Problems with Anesthesia: No NPO: Yes ASA Class: III Final Preanesthetic Review: No Changes in Pt Med Stat, Meds/Allgs Chart Reviewed, Consent Obtained/Reviewed and Anes Risks/Benef Reviewed Patient Risk: Intermediate Procedure Risk: Low Assessment/Block/Sedation in SS: Assess/Block/Sedation-SS Anesthetic Plan Anesthetic Plan: TIVA Disposition: Standard PACU
[2024-06-03 09:20] LABS: Glucose, Whole Blood 153 mg/dL (60-115)
[2024-06-03 09:22] VITALS: BP 141/72; PULSE 74; RESP 16; TEMP 37; O2SAT 96
[2024-06-03 10:10] VITALS: BP 115/60; PULSE 68; RESP 16; TEMP 36.6; O2SAT 98
--- NOTE | 2024-06-03 10:10 | HO.OPN-COLON ---
Colonoscopy Operative Note Operative Note Date of Service: 06/03/24 Narrative: Procedure: Colonoscopy Indication: Personal history of polyps Endoscopist: Gabriela Cobb MD Anesthesia Provider: Maggy Chairez CRNA Anesthesia type: MAC Instrument: Olympus [id number]-H190L Consent: Indication, risks vs benefits, and alternatives were discussed with the patient who gave written informed consent to proceed. An electronic gaming device supervisor was utilized to assist with the consent. EKG, pulse, pulse oximetry and blood pressure were monitored throughout the procedure. Please see anesthesia flowsheet. Procedure: The patient was brought to the procedure room and placed in the left lateral decubitus position. IV medications were administered by the anesthesia provider in attendance. A digital rectal exam was performed which was abnormal due to finding of hemorrhoids. A distal attachment cap was affixed to the tip of the colonoscope which was then inserted through the anus and advanced through the colon to the cecum at 80 cm,and terminal ileum. Appendiceal orifice and ileocecal valve were identified. Mucosa was carefully examined under high definition white light as the instrument was slowly withdrawn in a retrograde panoramic fashion. Retroflexion was performed in rectum. The procedure was not difficult. There were no immediate obvious complications. The quality of the prep was BBPS: 2+2+2 = Withdrawal time 10 minutes. Limitations: No limitations. Findings: Mucosa: Normal to cecum and terminal ileum. Protruding lesions: 1 sessile polyp of size 2 mm in transverse colon. Cold snare polypectomy was performed. The polyp was completely removed and retrieved. Medium internal hemorrhoids without stigmata of recent bleeding. Excavated lesions: A few scattered diverticuli in sigmoid colon. Impression: 1. Normal colon and terminal ileum mucosa 2. Total of 1 polyp removed 3. External and internal hemorrhoids 4. Diverticulosis Recommendations: - Follow path results. - Repeat colonoscopy in 5 years due to quality of the prep.
[2024-06-03 10:25] VITALS: BP 114/69; PULSE 65; RESP 16; TEMP 36.2; O2SAT 97
== END 2024-06-03 11:05 | disposition home or self-care (01) ==
PROVIDERS: PCP General Practice; Visit Provider Internal Medicine
PROC: 0DJD8ZZ Inspection of Lower Intestinal Tract, Via Natural or Artificial Opening Endoscopic (ICD-10-PCS; CPT 45378; principal; 2024-06-03 10:20)
DX: Z12.11 Encounter for screening for malignant neoplasm of colon (principal); Z86.0101 Personal history of adenomatous and serrated colon polyps; K57.30 Diverticulosis of large intestine without perforation or abscess without bleeding; K64.8 Other hemorrhoids; K64.4 Residual hemorrhoidal skin tags; K21.9 Gastro-esophageal reflux disease without esophagitis; J44.9 Chronic obstructive pulmonary disease, unspecified; I25.10 Atherosclerotic heart disease of native coronary artery without angina pectoris; Z95.5 Presence of coronary angioplasty implant and graft; I10 Essential (primary) hypertension; E78.00 Pure hypercholesterolemia, unspecified; E11.9 Type 2 diabetes mellitus without complications; Z98.51 Tubal ligation status; Z88.0 Allergy status to penicillin; Z91.010 Allergy to peanuts
CPT/HCPCS: 45385; 82947; 88305; 93005; J2003; J2704

== ENCOUNTER → 2024-06-03 08:34 | Outpatient (BNV) | payer OTHER, SELFPAY | PROVIDERS: PCP General Practice; Visit Provider Internal Medicine | DX: Z12.11 Encounter for screening for malignant neoplasm of colon (principal); Z86.0100 Personal history of colon polyps, unspecified; D12.3 Benign neoplasm of transverse colon; K57.30 Diverticulosis of large intestine without perforation or abscess without bleeding | CPT/HCPCS: 45385 ==

== ENCOUNTER → 2024-06-03 08:55 | Outpatient (BNV) | payer OTHER, SELFPAY | PROVIDERS: PCP General Practice; Visit Provider Internal Medicine Cardiovascular Disease | DX: I49.8 Other specified cardiac arrhythmias (principal) | CPT/HCPCS: 93010 ==

== ENCOUNTER 2024-07-29 11:17 | Outpatient (REF) | payer OTHER, SELFPAY ==
[2024-07-29 13:59] LABS: Creatinine Urine 47.63 mg/dL; Microalbum/Creatinine Ratio Ur 25.1 ug/mg cr (<30)
[2024-07-29 14:10] LABS: Alanine Aminotransferase 18 U/L (0-31); Alkaline Phosphatase 78 U/L (39-117); Anion Gap 8 (12-20); Aspartate Amino Transferase 17 U/L (5-31); Bilirubin Total 0.4 mg/dL (0.0-1.0); Blood Urea Nitrogen 13 mg/dL (9-16); Calcium 9.8 mg/dL (8.4-10.2); Carbon Dioxide 28 mmol/L (22-29); Chloride 106 mmol/L (96-108); Cholesterol 176 mg/dL (<200); Estimated Glomerular Filt Rate > 60; Glucose Random 400 mg/dL (60-115); HDL Cholesterol 55 mg/dL (>40); LDL Cholesterol Calculated 77 mg/dL (<100); Potassium 4.3 mmol/L (3.3-5.1); Sodium 138 mmol/L (135-145); Triglycerides 220 mg/dL (<150)
== END 2024-07-29 11:18 | disposition home or self-care (01) ==
LOC: HO.HHCL 11:17
PROVIDERS: Visit Provider General Practice
DX: E11.69 Type 2 diabetes mellitus with other specified complication (principal)
CPT/HCPCS: 36415; 80053; 80061; 82043; 82570

== ENCOUNTER 2024-08-13 14:39 | Outpatient (REF) | payer OTHER, SELFPAY ==
--- OUTSIDE RECORDS SUMMARY | 2024-08-13 17:08 | XMS_ITS | Encounter Summary ---
Author Organization [employer] Address [address] [address] [place] [address] Care Team Providers Care Truck Railroad And Bus Motor Mechanic Name Role Phone Galina Arrington MD Primary Care Provider [phone] Encounter Details Date Type Department Care Team (Latest Contact Info) Description 07/29/2024 Travel Social History Tobacco Use Types Packs/Day Years Used Date Smoking Tobacco: Never Smokeless Tobacco: Never Alcohol Use Standard Drinks/Week Comments Never 0 (1 standard drink = 0.6 oz pur e alcohol) Housing Stability Answer Date Recorded What is your housing situation today? I have tiffanie pierson 07/22/[address] you li ve. Do you have problems with any of the following? None of the above 07/22/2024 Food Insecurity Answer Date Recorded Within the past 12 months, y ou worried that your food would run out before you got money to buy more: Never True 07/22/2024 Within the past 12 months,th e food you bought just didn't last and you didn't have enough money to get more: Never True Transportation Answer Date Recorded In the past 12 months, has l ack of transportation kept you from medical appts, meetings, work or from getting things needed for daily living? No 07/22/2024 Utilities Answer Date Recorded In the past 12 months, has t he electric, gas, oil or water company threatened to shut off services in your home? No 07/22/2024 Depression Answer Date Recorded Patient Health Questionnaire-2 Score 0 08/21/2022 Internet Access Answer Date Recorded Internet Access Q1 No 07/22/2024 Internet Access Q2 Not on file 07/22/2024 Comments Unknown Sex and Gender Information Value Date Recorded Sex Assigned at Female 05/22/2022 10:14 AM EDT Legal Sex Female 10:14 AM EDT Gender Identity Female 02/19/2023 12:53 PM EDT Sexual Orientation Choose not to disclose 2021 10:14 AM EDT documented as of this encounter Plan of Treatment Not on file documented as of this encounter Visit Diagnoses Not on filedocumented in this encounter Care Teams Truck Railroad And Bus Motor Mechanic Relationship Specialty Start Date End Date Galina Arrington MD [address] [place] [id number] PCP - General Family Medicine 08/31/20 documented as of this encounter
--- OUTSIDE RECORDS SUMMARY | 2024-08-13 17:08 | XMS_ITS | Encounter Summary ---
Author Organization [employer] Address [address] [facility] [address] [place] [address] Care Team Providers Care Business Systems Administrator Name Role Phone Galina Arrington MD Primary Care Provider [phone] Reason for Visit * Reason Onset Date Comments nure triage 07/21/2024 Encounter Details Date Type Department Care Team (Late st Contact Info) Description 07/21/2024 Telephone [facility] [address] [place], [place] [phone] Galina Arrington MD [address] [place], [place] [phone] nure triage Social History Tobacco Use Types Packs/Day Years Used Date Smoking Tobacco: Never Smokeless Tobacco: Never Alcohol Use Standard Drinks/Week Comments Never 0 (1 standard drink = 0.6 oz pur e alcohol) Housing Stability Answer Date Recorded What is your housing situation today? I have tiffaniesergio pierson 07/22/[address] you [...] AM EDT documented as of this encounter Miscellaneous Notes * Telephone Encounter - Patricia Lozada RN - 07/21/2024 11:04 AM EST Call returned to [facility] to triage below. Reports having rash on temples and on abdomen. Per pt these spots are dark and rough. Not small red pin point areas or blisters. Pt reports having sx x 1 year. Has not mentioned to PCP or seen by Derm. Pt advised of disposition, agrees to discuss at upcoming appt with PCP as chronic issue and no acute changes or concerns. Protocol Used: Skin Lesion - Moles or Growths (Adult) Protocol-Based Disposition: See in Office or Video Visit within 2 Weeks Future Appointments Date Time Provider Department Center 07/29/2024 10:30 AM Galina Arrington MD MEDICINE [facility] Video visit offer not recorded Positive Triage Question: * Caller is uncertain what lesion is * All higher-acuity triage questions were negative * Telephone Encounter - Arsenio Monteiro - 07/21/2024 10:19 AM EST Symptom: Rash One Body Area Only Outcome: Schedule an appointment to be seen within 3 days Reason: Caller denied all higher acuity questions The caller accepted this outcome. Pt reports rash is very dark . Grenadian speaking documented in this encounter Plan of Treatment Not on file documented as of this encounter Visit Diagnoses Not on filedocumented in this encounter Care Teams Business Systems Administrator Relationship Specialty Start Date End Date Galina Arrington MD [address] [place] [address] PCP - General Family Medicine 08/31/20 documented as of this encounter
--- OUTSIDE RECORDS SUMMARY | 2024-08-13 17:08 | XMS_ITS | Encounter Summary ---
Author Organization [employer] Address [address] [facility] [address] [place] [address] Care Team Providers Care Button Sewing Machine Operator Name Role Phone Galina Arrington MD Primary Care Provider [phone] Encounter Details Date Type Department Care Team (Late st Contact Info) Description 07/22/2024 Patient Outreach [facility] [address] [place], [place] [phone] Galina Arrington MD [address] [place], [place] [phone] Social History Tobacco Use Types Packs/Day Years [...] AM EDT documented as of this encounter Progress Notes * Rupinder Martin - 07/22/2024 11:24 AM EST CC Rupinder placed successful outbound call to patient for pre-visit planning. Patient name and confirmed. Patient confirms appt date and time, and has transportation. Biggest concern for appointment at this time is none Patient advised to bring to appointment a photo id and insurance card. Appropriate screenings completed in anticipation of appointment. documented in this encounter Plan of Treatment Not on file documented as of this encounter Visit Diagnoses Not on filedocumented in this encounter Care Teams Button Sewing Machine Operator Relationship Specialty Start Date End Date Galina Arrington MD [address] [place] [address] PCP - General Family Medicine 08/31/20 documented as of this encounter
--- OUTSIDE RECORDS SUMMARY | 2024-08-13 17:08 | XMS_ITS | Encounter Summary ---
Author Organization [employer] Address [address] [facility] 7[address] [place] [address] Care Team Providers Care Contract Clerk Name Role Phone Galina Arrington MD Primary Care Provider [phone] Reason for Visit * Reason Onset Date Comments CRITICAL RESULT 07/29/2024 Encounter Details Date Type Department Care Team (Late st Contact Info) Description 07/29/2024 Telephone [facility] [address] [place], [place] [phone] Galina Arrington MD [address] [place], [place] [phone] CRITICAL RESULT Social History Tobacco Use Types Packs/Day Years [...] encounter Miscellaneous Notes * Telephone Encounter - Octavia Bowden RN - 07/29/2024 2:27 PM EST Noted. * Telephone Encounter - Patricia Lozada RN - 07/29/2024 2:09 PM EST Incoming call to the Critical Result line 07/29/24 at 2:09 PM Name of Caller/Facility:[facility] Callback number: [phone] Reason for Call: Glucose of 400mg/dL drawn today 07/29/24 at 1120 Message to be forwarded to Galina Arrington MD and team nurses for follow up. PT SEEN BY PCP TODAY IN OFFICE. documented in this encounter Plan of Treatment Not on file documented as of this encounter Visit Diagnoses Not on filedocumented in this encounter Care Teams Contract Clerk Relationship Specialty Start Date End Date Galina Arrington MD [address] [place] [address] PCP - General Family Medicine 08/31/20 documented as of this encounter
--- OUTSIDE RECORDS SUMMARY | 2024-08-13 17:08 | XMS_ITS | Encounter Summary ---
Author Organization [employer] Address [address] [facility] 7[address] [place] [address] Care Team Providers Care Circuit Rider Name Role Phone Galina Arrington MD Primary Care Provider [phone] Encounter Details Date Type Department Care Team (Late st Contact Info) Description 08/06/2024 Telephone [facility] MEDICINE [address] [place], [place] [phone] Galina Arrington MD [address] [place], [place] [phone] Social History Tobacco Use Types Packs/Day Years [...] on filedocumented in this encounter Care Teams Circuit Rider Relationship Specialty Start Date End Date Galina Arrington MD [address] [place] [address] PCP - General Family Medicine 08/31/20 documented as of this encounter
--- OUTSIDE RECORDS SUMMARY | 2024-08-13 17:08 | XMS_ITS | Continuity of Care Document ---
Author Organization [facility] [employer] Address [address] [place] [address] [address] [place] [address]- Care Team Providers Care Cuff Setter Name Role Phone Aureliano FERNANDEZ, Roro Randall Primary Care Physician Encounter [facility] Date(s): 07/04/24 - 08/03/24 [facility] [address] [place] [id number] Attending Physician: AdmtrBhaskar Admitting Physician: AdmtrBhaskar Referring Physician: Admtr, Ar8 Encounter Type: Triage Allergies, Adverse Reactions, Alerts Substance Criticality Severity Reaction Reaction Severity Status penicillin Active Peanuts Active Other Food Allergy 1 Active 1Almonds per pt. 11/04/2018 Medications aspirin 81 mg oral tablet 1 tablet = 81 mg, By Mouth, Daily, tablet, 0 Refills, Maintenance, 06/07/10 2:20:19 PM EST Start Date: 06/07/10 Status: Ordered Repeat number: 1 Crestor 40 mg oral tablet 1 tablet = 40 mg, By Mouth, Daily at bedtime, please keep f/u appt with Dr Peoples for more refills, # 30 tablet, 11 Refills, Maintenance, 01/31/13 2:15:47 PM EDT, [id number] Start Date: 01/31/13 Stop Date: 01/26/14 Status: Ordered Quantity: 30.0 Unit: tablet Repeat number: 12 cyclobenzaprine 10 mg oral tablet 1 tablet = 10 mg, By Mouth, 3 times a day, PRN for spasm, # 30 tablet, 0 Refills, Maintenance, 02/13/14 2:07:58 PM EDT, Tablet Start Date: 02/13/14 Status: Ordered Quantity: 30.0 Unit: tablet Repeat number: 1 isosorbide mononitrate 60 mg oral tablet, extended release 60 mg, 1, tablet, By Mouth, Daily in AM, Please keep follow up appt. do not crush or chew, # 30 tablet, Refills 3, Tot. Refills 3, Maintenance, 08/09/16 11:15:10 AM EST, Route to Pharmacy Electronically, [facility] #[id number] Start Date: 08/09/16 Stop Date: 12/07/16 Status: Ordered Quantity: 30.0 Unit: tablet Repeat number: 4 metformin 500 mg oral tablet 1 tablet = 500 mg, By Mouth, 2 times a day, 0 Refills, Maintenance, 06/07/10 2:20:30 PM EST Start Date: 06/07/10 Status: Ordered Repeat number: 1 metoprolol 25 mg oral tablet 1 tablet = 25 mg, By Mouth, Daily, # 30 tablet, 11 Refills, Maintenance, 01/31/13 2:15:21 PM EDT, Tablet, [facility]/pharmacy #[id number] Start Date: 01/31/13 Stop Date: 01/26/14 Status: Ordered Quantity: 30.0 Unit: tablet Repeat number: 12 Metronidazole = 250 mg, By Mouth, Every 12 hours, (may take with food to minimize abdominal discomfort), # 14, 0 Refills, 06/11/08 2:32:00 PM EST Start Date: 06/11/08 Stop Date: 06/18/08 Status: Ordered Quantity: 14.0 Unit: Repeat number: 1 omeprazole 20 mg oral delayed release tablet 1 tablet = 20 mg, By Mouth, 2 times a day, # 120 tablet, 0 Refills, Maintenance, 02/13/14 2:08:50 PMEDT, EC Tablet Start Date: 02/13/14 Status: Ordered Quantity: 120.0 Unit: tablet Repeat number: 1 ProAir HFA 90 mcg/inh inhalation aerosol with adapter 1 puffs, Inhalation, 4 times a day, PRN for wheezing, # 8.5 Gm, 0 Refills, Maintenance, 02/13/14 2:07:15 PM EDT, Aerosol Start Date: 02/13/14 Status: Ordered Quantity: 8.5 Unit: g Repeat number: 1 Senna By Mouth, 0 Refills, Maintenance, 02/13/14 2:08:06 PM EDT Start Date: 02/13/14 Status: Ordered Repeat number: 1 Toprol XL 25 mg oral tablet, extended release 1 tablet = 25 mg, By Mouth, Daily, # 30 tablet, 0 Refills, Maintenance, 02/13/14 2:07:38 PM EDT, ER Tablet Start Date: 02/13/14 Status: Ordered Quantity: 30.0 Unit: tablet Repeat number: 1 Zofran ODT 4 mg oral tablet, disintegrating 1 tablet = 4 mg, By Mouth, Every 8 hours, PRN Nausea, # 8 tablet, 0 Refills, Maintenance, 04/10/18 3:41:06 PM EDT Start Date: 04/10/18 Stop Date: 04/12/18 Status: Ordered Quantity: 8.0 Unit: tablet Repeat number: 1 Problem List Condition Confirmation Course Effective Dates Status Health St [facility] Informant Hyperlipidemia Confirmed Active Social History Social History Type Response Smoking Status Former smoker, quit more than 30 days ago entered on: 08/05/18 Sex Female Sex Representation Female (finding) Patient Care team information Care Team Personnel Name: Roro Bedoya NP, V Position: [facility] Outreach Member Role: PCP [address]: [address] [place] [address], [address] Telecom: Care Team Related Persons Name: DAVID TRAYLOR Insurance Providers Guarantor name: [facility] Information #: 1 Payer: SELF PAY INSURANCE Member Number: NA Policy Number: NA Group Number: NA
--- OUTSIDE RECORDS SUMMARY | 2024-08-13 17:08 | XMS_ITS | Clinical Summary ---
Author Organization [employer] Address [address] [place] [address] [address] [place] [address] Care Team Providers Care Director Of Optimization Name Role Phone Galina Arrington MD Primary Care Provider Allergies Active Allergy Reactions Criticality Noted Date Comments Pendleton Oil 01/15/2017 Other reaction(s): hives Loratadine 10/18/2010 Other reaction(s): nausea: dizziness Peanut (Diagnostic) 10/18/2010 Other reaction(s): unspecified Penicillins 10/18/2010 Other reaction(s): unspecified Tramadol Nausea Only 10/18/2010 Medications EPINEPHrine (Epipen) 0.3 MG/0.3ML injection syringe INJECT 1 PEN IN THE MUSCLE ONE TIME DIRECTED 022 Active ipratropium (Atrovent HFA) 17 MCG/ACT inhaler INHALE 2 PUFFS BY INHALATION FOUR TIMES DAILY NEEDED 12.9 g 1 023 Active omeprazole (PriLOSEC) [address] capsuleIndicati ons:Gastroesoph ageal reflux disease without esophagitis TAKE 1 CAPSULE BY MOUTH EVERY DAY 90 capsule 3 024 Active rosuvastatin (Crestor) 40 MG tablet TAKE 1 TABLET(40 MG) BY MOUTH IN THE MORNING DIRECTED 90 tablet 3 024 Active montelukast (Singulair) 10 MG tabletIndicatio ns:Mild intermittent asthma without complication TAKE 1 TABLET BY MOUTH EVERY DAY IN THE EVENING FOR ALLERGIES 90 tablet 3 024 Active Docusate Sodium (DSS) 100 MG capsuleIndicati ons:Constipatio n, unspecified constipation type take 1 capsule by oral route 2 times every day 180 capsule 3 024 Active Mapap Arthritis Pain 650 MG ER tabletIndicatio ns:Other chronic pain TAKE 2 TABLETS BY MOUTH EVERY 8 HOURS NEEDED. SWALLOW WHOLE WITH WATER AND DO NOT BREAK OR CRUSH OR DISSOLVE OR CHEW 540 tablet 2 Active cholecalciferol 50 MCG (2000 UT) capsule Take 1 capsule (50 mcg) by mouth in the morning. 90 capsule 3 Active Blood Glucose Monitoring Suppl (ONE TOUCH ULTRA 2) w/Device kitIndications: Type 2 diabetes mellitus with other specified complication, without long-term current use of insulin ([facility]) Use to monitor blood glucose twice daily 1 kit Active glucose blood test strip Check blood sugar twice a day 100 each 12 024 2024 Active OneTouch Delica Lancets 33G miscIndications :Type 2 diabetes mellitus with other specified complication, without long-term current use of insulin ([facility]) Use to test blood sugar 2 times daily 100 each Active DULoxetine (Cymbalta) [address] capsule TAKE 1 CAPSULE BY MOUTH EVERY DAY FOR PAIN 90 capsule 3 Active simethicone (Mylicon) 80 MG chewable tablet CHEW AND SWALLOW 1 TABLET BY MOUTH FOUR TIMES DAILY AFTER MEALS AND BEFORE BEDTIME NEEDED FOR GAS 120 tablet 3 Active cyclobenzaprine (Flexeril) 10 MG tablet TAKE 1 TABLET BY MOUTH EVERY NIGHT AT BEDTIME NEEDED FOR BACK PAIN 30 tablet 3 Active Bisacodyl EC 5 MG EC tablet TAKE 4 TABLETS BY MOUTH AT NOON THE DAY BEFORE COLONOSCOPY Active Dulaglutide 0.75 MG/0.5ML solution auto-injectorIn dications:Type 2 diabetes mellitus with other specified complication, without long-term current use of insulin ([facility]) Inject 0.75 mg as directed 1 (one) time per week. 2 mL Active gabapentin (Neurontin) 300 MG capsuleIndicati ons:Type 2 diabetes mellitus with other specified complication, without long-term current use of insulin ([facility]),Multi ple joint pain Take 1 capsule (300 mg) by mouth 3 times daily. 90 capsule 025 2025 Active metFORMIN XR (Glucophage-XR) 500 MG 24 hr tabletIndicatio ns:Type 2 diabetes mellitus with other specified complication, without long-term current use of insulin ([facility]) TAKE 1 TABLET IN THE MORNING, AND 2 TABLETS IN THE EVENING. DO NOT CRUSH, CHEW OR SPLIT 90 tablet 3 025 Active glipiZIDE XL (Glucotrol XL) 5 MG 24 hr tabletIndicatio ns:Type 2 diabetes mellitus with other specified complication, without long-term current use of insulin (CMS/HCC) TAKE 1 TABLET BY MOUTH EVERY DAY WITH BREAKFAST 90 tablet 3 025 Active diphenhydrAMINE (Evelyne-Dryl) 25 MG tabletIndicatio ns:Oral lesion TAKE 1 TABLET BY MOUTH EVERY DAY AT BEDTIME NEEDED FOR DIZZINESS 30 tablet 1 025 Active olmesartan (Benicar) 5 MG tabletIndicatio ns:Type 2 diabetes mellitus with other specified complication, without long-term current use of insulin (CMS/HCC) Take 1 tablet (5 mg) by mouth Once per day. For blood pressure and kidney protection 90 tablet 3 025 2025 Active aspirin 81 MG chewable tabletIndicatio ns:Type 2 diabetes mellitus with other specified complication, without long-term current use of insulin ([facility]) Chew 1 tablet (81 mg) Once per day. 90 tablet 3 025 2025 Active cetirizine (ZyrTEC) 10 MG tabletIndicatio ns:Allergic rhinitis, unspecified seasonality, unspecified trigger Take 1 tablet by mouth once daily 90 tablet 3 023 2024 Discontinued(T herapy completed) ipratropium-alb uterol (Duo-Neb) 0.5-2.5 mg/3 mL nebulizer solutionIndicat ions:Mild persistent asthma without complication inhale 3 milliliter by nebulization route 4 times every day as needed 180 mL 023 2024 Discontinued(T herapy completed) ProAir HFA 108 (90 Base) MCG/ACT inhaler INHALE 2 PUFFS BY MOUTH EVERY 4 TO 6 HOURS NEEDED FOR SHORTNESS OF BREATH 022 2024 Discontinued(T herapy completed) Diclofenac Sodium 1 % gel APPLY 2 GRAMS TOPICALLY TO THE AFFECTED AREA THREE TIMES DAILY 022 2024 Discontinued(T herapy completed) levocetirizine (Xyzal) 5 MG tablet Take 5 mg by mouth in the morning. 2024 Discontinued(T herapy completed) triamcinolone (Nasacort) 55 MCG/ACT nasal inhaler triamcinolone acetonide 55 mcg nasal spray aerosol USE 2 SPRAYS IN EACH NOSTRIL EVERY DAY 022 2024 Discontinued(T herapy completed) gabapentin (Neurontin) 300 MG capsuleIndicati ons:Multiple joint pain Take 1 capsule (300 mg) by mouth 3 times daily. 90 capsule 023 2024 Discontinued(R eorder (will not trigger notification to Pharmacy)) Pseudoephedrine -Acetaminophen (SM NON-ASPRIN SINUS PO) Take by mouth. 2024 Discontinued(T herapy completed) ibuprofen 600 MG tablet Take 1 tablet (600 mg) by mouth if needed in the morning, at noon, and at bedtime for moderate pain or fever. 20 tablet 024 2024 Discontinued(T herapy completed) fluticasone (Flonase) 50 MCG/ACT nasal spray SHAKE LIQUID AND USE 2 SPRAYS IN EACH NOSTRIL EVERY MORNING NEEDED 48 g 3 024 2024 Discontinued(T herapy completed) dulaglutide (Trulicity) 0.75 MG/0.5ML solution pen-injectorInd ications:Type 2 diabetes mellitus with other specified complication, without long-term current use of insulin ([facility]) ADMINISTER 0.75 MG UNDER THE SKIN EVERY WEEK 2 mL 3 024 2024 Discontinued(R eorder (will not trigger notification to Pharmacy)) glipiZIDE XL (Glucotrol XL) 5 MG 24 hr tablet TAKE 1 TABLET BY MOUTH EVERY DAY WITH BREAKFAST 90 tablet 1 024 2024 Discontinued(R eorder (will not trigger notification to Pharmacy)) metFORMIN XR (Glucophage-XR) 500 MG 24 hr tablet TAKE 1 TABLET IN THE MORNING, AND 2 TABLETS IN THE EVENING. DO NOT CRUSH, CHEW OR SPLIT 90 tablet 3 024 2024 Discontinued(R eorder (will not trigger notification to Pharmacy)) diphenhydrAMINE (Evelyne-Dryl) 25 MG tabletIndicatio ns:Oral lesion TAKE 1 TABLET BY MOUTH EVERY DAY AT BEDTIME NEEDED FOR DIZZINESS 20 tablet 1 024 2024 Discontinued(R eorder (will not trigger notification to Pharmacy)) isosorbide mononitrate ER (Imdur) 60 MG 24 hr tablet TAKE 1 TABLET BY MOUTH EVERY MORNING DIRECTED 90 tablet 3 024 2024 Discontinued(R eorder (will not trigger notification to Pharmacy)) metFORMIN XR (Glucophage-XR) 500 MG 24 hr tablet TAKE 1 TABLET IN THE MORNING, AND 2 TABLETS IN THE EVENING. DO NOT CRUSH, CHEW OR SPLIT 90 tablet 3 025 2024 Discontinued(R eorder (will not trigger notification to Pharmacy)) isosorbide mononitrate ER (Imdur) 60 MG 24 hr tablet Take 1 tablet (60 mg) by mouth Once per day. Do not crush or chew. 90 tablet 3 025 2024 Discontinued(I neffective) Active Problems Problem Noted Date Diagnosed Date Kidney stones 08/28/2023 Screening for cervical cancer 02/16/2023 Assessment & Plan (02/16/2023 3:27 PM EDT): Pap BV panel Vaginal itching 11/24/2022 Assessment & Plan (11/24/2022 3:26 PM EDT): Empiric clotrimazole cream prescribed Frequent urination 11/24/2022 Assessment & Plan (11/24/2022 3:25 PM EDT): Drink plenty of water Do not hold urine UA and culture Rash 08/24/2022 Assessment & Plan (08/24/2022 6:13 AM EST): One papule visible at R lower lip? Allergic reaction, blackhead? To take Benadryl for few doses over the next few days Cover with emollient F/u if persisten COVID-19 08/21/2022 Pulmonary emphysema 08/21/2022 Diabetes mellitus 01/07/2021 Assessment & Plan (08/24/2022 6:14 AM EST): Needs transfer appt A1C 7.8 today Dizziness 01/01/2018 Multiple joint pain 01/01/2018 Assessment & Plan (08/24/2022 6:13 AM EST): Located in her hands, especially Also other small joints Finds relief with Gabapentin, refills given Allergic rhinitis 05/26/2015 Alopecia 05/26/2015 Constipation 05/26/2015 Coronary artery disease invo lving [place] coronary artery of [place] heart without angina pectoris 05/26/2015 Gastroesophageal reflux disease without esophagi tis 05/26/2015 Hypercholesterolemia 05/26/2015 Mild intermittent asthma 05/26/2015 Vitamin D deficiency 05/26/2015 Encounters Date Type Department Care Team Description 08/06/[address] [address] Galina Arrington MD 07/29/2024 10:30 AM EST Office Visit [address] [address] Galina Arrington MD Type 2 diabetes mellitus with other specified complication, without long-term current use of insulin ([facility]) (Primary Dx); Encounter for screening mammogram for malignant neoplasm of breast; Pulmonary emphysema, unspecified emphysema type (CMS/HCC); Dietary counseling; Exercise counseling; Overweight; Multiple joint pain; SK (seborrheic keratosis); Encounter for immunization; Oral lesion; Alopecia 07/29/[address] [address] Galina Arrington MD CRITICAL RESULT 07/29/2024 Travel 07/22/2024 Patient Outreach [address] [address] Galina Arrington MD 07/21/[address] [address] Galina Arrington MD nure triage 06/03/2024 Orders Only GENERIC EXTERNAL DATA DEPARTMENT Provider, Generic External Data 06/02/2024 Refill [facility] [address] [place] [address] Galina Arrington MD 05/29/2024 Refill [facility] [address] [place] [address] Galina Arrington MD 05/27/2024 Orders Only GENERIC EXTERNAL DATA DEPARTMENT Provider, Generic External Data 05/26/2024 Orders Only GENERIC EXTERNAL DATA DEPARTMENT Provider, Generic External Data 05/26/2024 Refill [facility] [address] [place] [address] Galina Arrington MD Oral lesion from Last 3 Months Immunizations Name Administration Dates Next Due Influenza Injectable Quadriv alant Preservative Free IIV4 MDCK 04/22/2018 Influenza Quadrivalent Adjuvanted 06/16/2023 Influenza injectable quadriv alent IIV4 with preservative 07/10/2022 Influenza injectable quadriv alent preservative free 07/05/2021,04/13/2020,05/02/2019,09/26,03/05/2017,03/03/2017 Influenza, High Dose Seasona l, Preservative Free 07/29/2024 Influenza, IIV3, injectable 07/15/2014,0 12/24/2006,07/05/2006,07/27,06/11/2002,05/17/2000,05/19/1999 ,06/14/1998 Influenza, Split (incl. ervin fied surface antigen) 09/01/2013,04/30/2012 Pfizer Covid-19 Vaccine 12+ 11/13/2020 Pfizer Covid-19 Vaccine 12+ Bivalent 07/10/2022 Pneumococcal Conjugate PCV 20 01/10/2022 Pneumococcal Polysaccharide PPSV23 07/05/2006 TD (adult), 2 Lf tetanus tox oid, preservative free, adsorbed 10/25/2004 Tdap 08/29/2012 Zoster, Recombinant 04/13/2020 Social History Tobacco Use Types Packs/Day Years Used Date Smoking Tobacco: Never Smokeless Tobacco: Never Tobacco Cessation:Counseling Given: Not Answered Alcohol Use Standard Drinks/Week Comments Never 0 (1 standard drink = 0.6 oz pur e alcohol) Housing Stability Answer Date Recorded What is your housing situation today? I have tiffanie piersno 07/22/[address] you li [...] not to disclose 2021 10:14 AM EDT Last Filed Vital Signs Vital Sign Reading Time Taken Comments Blood Pressure 124/74 07/29/2024 10:48 AM EST Pulse 81 07/29/2024 10:48 AM EST Temperature 36.7 ??C (98 ??F) 07/29/2024 10:48 AM EST Respiratory Rate 16 07/29/2024 10:48 AM EST Oxygen Saturation 98% 01/08/2024 5:34 PM EDT Inhaled Oxygen Concentration - - Weight 70.3 kg (155 lb) 07/29/2024 10:48 AM EST Height 152.4 cm (5') 07/29/2024 10:48 AM EST Body Mass Index 30.27 07/29/2024 10:48 AM EST Plan of Treatment Health Maintenance Due Date Last Done Comments CT Colonography 1955 Dental Prophylaxis 1955 FIT DNA/Cologuard 1955 FIT 1955 FOBT 1955 Sigmoidoscopy 1955 Diabetes: Foot Exam 10/12/1967 Eye Exam 10/12/1967 Alcohol/Substance Use Screening 1969 Hepatitis C Screening 10/12/1975 RSV Patients and Patients Aged 60 years or older (1 - Risk 60-74 years 1-dose series) 2017 Zoster Vaccines (2 of 2) 06/08/2020 04/13/2020 DTaP/Tdap/Td Vaccines (2 - Td or Tdap) 08/29/2022 08/29/2012, 10/25/2004 Dental Oral Exam 07/20/2023 01/17/2023, 04/19/2017 Depression Screening 08/21/2023 08/21/2022, 08/21/19 23 Mammogram 01/06/2024 01/05/2022, 12/17/2018 Dental X-Ray: Bitewings 01/19/2024 01/17/2023, 04/19 COVID-19 Vaccine ( season) 2024 07/10/2022, 07/18/2021, 01/05/2021, Additional history exists Diabetes: Hemoglobin A1C 10/27/2024 025, 01/08/2024, 08/21/2022, Additional history exists SDOH Screening 07/22/2025 07/22/2024 Diabetes: Urine Protein Screening 07/29/2025 07/29/2024, 04/19/2022, 07/18/2021 Lipid Panel 07/29/2025 07/29/2024, 06/23, 10/15/2020 Tobacco Screening 07/29/2025 07/29/2024 Dental X-Ray: Full Mouth 01/18/2026 01/17/2023, 03/24 Colonoscopy 05/23/2029 10/26/2015, 10/26/2015 Colorectal Cancer Screening 05/23/2029 Pneumococcal Vaccine: 65+ Years Completed 01/10/2022, 07/05/2006 Cervical Cancer Screening Discontinued HPV/Cotest Discontinued 02/16/2023, 03/24, 01/15/2017 Pap Smear Discontinued 02/16/2023, 04/13/2020 Influenza Vaccine Completed 07/29/2024, , 07/10/2022, Additional history exists HIB Vaccines Aged Out No longer eligi ble based on patient's age to complete this topic HPV Vaccines Aged Out No longer eligi ble based on patient's age to complete this topic Hepatitis A Vaccines Aged Out No long er eligible based on patient's age to complete this topic Hepatitis B Vaccines Aged Out No long er eligible based on patient's age to complete this topic IPV Vaccines Aged Out No longer eligi ble based on patient's age to complete this topic Meningococcal Vaccine Aged Out No le bee eligible based on patient's age to complete this topic RSV under 20 months Aged Out No longe r eligible based on patient's age to complete this topic Rotavirus Vaccines Aged Out No longer eligible based on patient's age to complete this topic Procedures Procedure Name Priority Date/Time Associated Diagnosis Comments POCT GLUCOSE Routine 07/29/2024 11:38 AM EST Type 2 diabetes mellitus with other specified complication, without long-term current use of insulin (CMS/HCC) COMPREHENSIVE METABOLIC PANEL Routine 07/29/2024 11:20 AM EST Type 2 diabetes mellitus with other specified complication, without long-term current use of insulin (CMS/HCC) ALBUMIN, RANDOM URINE W/CREATININE Routine 07/29/2024 11:20 AM EST Type 2 diabetes mellitus with other specified complication, without long-term current use of insulin (CMS/HCC) LIPID PANEL, STANDARD Routine 07/29/2024 11:20 AM EST Type 2 diabetes mellitus with other specified complication, without long-term current use of insulin (CMS/HCC) POCT GLYCATED HEMOGLOBIN, TOTAL Routine 07/29/2024 11:12 AM EST Type 2 diabetes mellitus with other specified complication, without long-term current use of insulin (CMS/HCC) HEMATOXYLIN AND EOSIN STAIN Routine 06/03/2024 10:00 AM EST GLUCOSE, WHOLE BLOOD Routine 06/03/2024 9:[address] ABDOMEN PELVIS WO CONTRAST Routine 05/27/2024 2:25 AM EST URINALYSIS, COMPLETE, WITH REFLEX TO CULTURE Routine 05/27/2024 2:19 AM EST COMPREHENSIVE METABOLIC PANEL Routine 05/26/2024 11:42 PM EST CBC WITH AUTO DIFFERENTIAL Routine 05/26/2024 11:42 PM EST HPV MRNA E6/E7 REFLEX TO HPV 16, 18/45 Routine 02/16/2023 3:33 PM EDT PAP SMEAR Routine 02/16/2023 3:33 PM EDT DIAGNOSTIC - DIAGNOSTIC IMAGING - INTRAORAL - COMPREHENSIVE SERIES OF RADIOGRAPHIC IMAGES Routine 01/17/2023 2:30 PM EDT Defective dental holiness COMPREHENSIVE ORAL EVALUATION - NEW OR ESTABLISHED PATIENT Routine 01/17/2023 2:30 PM EDT Defective dental holiness MAMMOGRAM GENERIC Routine 01/05/2022 3:1 0 PM EDT HM COLONOSCOPY Routine 10/26/2015 9:21 AM EDT from Last 3 Months or Most Recently Relevant to Health Maintenance Results * (ABNORMAL) POCT Glucose (07/29/2024 11:38 AM EST) Glucose Blood, POC 500(A) 60 - 200 mg/dL Comment:[facility] QC Media Lot # [id number] Lot# Expiration Date [id number] Blood Capillary blood specimen / Unknown 07/29/2024 11:38 AM EST Galina Arrington MD POINT OF CARE TEST ENTER/EDIT ORDERABLES Final Result * Albumin, Random Urine W/Creatinine (07/29/2024 11:20 AM EST) Creatinine, Urine 47.63 mg/dL [facility] Microalbumin Urine 12.0 mg/L [facility] Microalbum Creatinine Ratio Ur 25.1 <30 ug/mg cr [facility] Comment:Albumin/Creatinine R atio Reference Ranges: Normal: < 30 ug/mg creatinine Microalbuminuria: 30 - 300 ug/mg creatinineClinical Albuminuria: > 300 ug/mg creatinine Urine (Urine, Random) 07/29/2024 11:20 AM EST 07/29/2024 1:02 PM EST us Galina Arrington MD LAB URINE ORDERABLES Final Res ult Performing Organization Address [facility] Co de Phone Number [facility] [address] [place] [address] [phone] * (ABNORMAL) Lipid Panel, Standard (07/29/2024 11:20 AM EST) Triglycerides 220(H) <150 mg/dL [facility] Comment:Desirable Triglyceri de: less than 150 mg/dLBorderline High Triglyceride 150-199 mg/dLHigh Triglyceride: 200-499 mg/dLVery High Triglyceride: greater than or equal to 5OO mg/dL Cholesterol 176 <200 mg/dL [facility] Comment:Desirable Cholestero l: less than 200 mg/dLBorderline High Cholesterol: 200-239 mg/dLHigh Cholesterol: greater than 239 mg/dL LDL Cholesterol Calculated 77 <100 mg/dL [facility] Comment:Desirable LDL: less than 100 mg/dLNear Optimal/Above Optimal LDL: 110- 129 mg/dLBorderline High LDL: 130-159 mg/dLHigh LDL: 160-189 mg/dLVery High LDL: greater than or equal to 190 mg/dL HDL Cholesterol 55 >40 mg/dL [facility] Comment:Desirable HDL: great er than 40 mg/dL Note: This HDL assay may give artificially low results in patients with liver disease. Blood Venous blood specimen / Unknown 07/29/2024 11:20 AM EST 07/29/2024 1:03 PM EST us Galina Arrington MD LAB BLOOD ORDERABLES Final Res ult [facility] [address] [place] [address] [phone] * (ABNORMAL) Comprehensive Metabolic Panel (07/29/2024 11:20 AM EST) Only the most recent of2 resultswithin the time period is included. Sodium 138 135 - 145 mmol/L [facility] Potassium 4.3 3.3 - 5.1 mmol/L [facility] Chloride 106 96 - 108 mmol/L [facility] Carbon Dioxide 28 22 - 29 mmol/L [facility] Anion Gap 8(L) 12 - 20 [facility] Urea Nitrogen (BUN) 13 9 - 16 mg/dL [facility] Creatinine, Serum 0.80 0.5 - 1.4 mg/dL [facility] Estimated Glomerular Filt Rate >60 [facility] Comment:Chronic Kidney Disea se: Estimated GFR < 60 mL/min/[id number] Kidney Disease: Estimated GFR < 15 mL/min/1.73m2 Glucose 400(HH) 60 - 115 mg/dL [facility] Comment:Critical value for G SHI: Results called to and read backby: JADYN Francois Person calling: ANANT Date: 07/29/24 Time:1409 Calcium 9.8 8.4 - 10.2 mg/dL [facility] Bilirubin, Total 0.4 0.0 - 1.0 mg/dL [facility] Aspartate Amino Transferase 17 5 - 31 U/L [facility] Alanine Aminotransferase 18 0 - 31 U/L [facility] Total Protein 8.0 6.5 - 8.0 g/dL [facility] Albumin Level 4.0 3.5 - 5.0 g/dL [facility] Alkaline Phosphatase 78 39 - 117 U/L [facility] Blood Venous blood specimen / Unknown 07/29/2024 11:20 AM EST 07/29/2024 1:03 PM EST us Galina Arrington MD LAB BLOOD ORDERABLES Final Res ult [facility] [address] [place] [address] [phone] * (ABNORMAL) POCT HGB A1C (07/29/2024 11:12 AM EST) Hemoglobin A1C 8.8(A) 4.0 - 6.0 % QC Media Lot # [id number] Lot# Expiration Date ,[id number] Blood 07/29/2024 11:1 2 AM EST Galina Arrington MD POINT OF CARE TEST ENTER/EDIT ORDERABLES Final Result * Hematoxylin and Eosin Stain (06/03/2024 10:00 AM EST) 06/03/2024 10:0 0 AM EST 06/03/2024 10:23 AM EST Narrative [facility] - 06/05/2024 9:34 AM EST ----- ------- Name: Spence,Iris ? Age/Sex: 68/F ? : 1955 Unit#: [id number] ?? Attend Dr: Gabriela Cobb MD ?Re06/03/24 ?Status: DEP SDC ? Location: HO.SSS ?Disch: ? ----- ------- SPEC : [id number] ? RECD: 06/03/24 ? STATUS: ??SOUT ? REQ NUM: [id number] ? SHA: 06/03/24-1000 ? SUBM DR: Gabriela Cobb MD ? ENTERED: ??06/03/24 ?SP TYPE: Surgical ? OTHR DR: Galina Arrington ? ORDERED: ??HE Stain/3, Gross Micro L4 ? Diagnosis ?? Colon, transverse, polyp: ??Tubular adenoma; negative for high-grade dysplasia and ?? carcinoma. ?Clinical History Pre-Op Dx: ??History of polyp Post-Op Dx: Diverticulosis, hemorrhoids, polyp ?Microscopic Description Microscopic sections reviewed. ? Material Received ?? Transverse colon polyp ? Gross Description Received in formalin labeled ?transverse colon polyp? is a 0.35 cm reyes-pink papular tissue fragment, submitted in toto in a cassette labeled Kobe ETIENNE Copies To: ?? Galina Arrington ?? [address] ?? [place] [address] ?? [phone] ?? Gabriela Cobb MD ?? [facility] ?? [address] ?? [place] [address] ?? [phone] ?? [email or web address] ----- ------- Signed (signature on file) Aida Meena 06/05/24 0934 ? ----- ------- ? END OF REPORT ? us Generic External Data Provider LAB BLOOD ORDERAB LES Final Result Performing Organization Address City/[facility]/ZIP Co de Phone Number [facility] [address] [facility] [place] [address] [phone] * (ABNORMAL) Glucose, Whole Blood (06/03/2024 9:16 AM EST) [facility] Glucose, Whole Blood 153(H) 60 - 115 mg/dL [facility] Comment:METER #: [id number] 06/03/2024 9:16 AM EST 06/03/2024 9:19 AM EST Generic External Data Provider LAB BLOOD ORDERAB LES Final Result Performing Organization Address City/[facility]/ZIP Co de Phone Number [facility] [address] [place] [phone] * CT Abdomen Pelvis w/o Contrast (05/27/2024 2:25 AM EST) Anatomical Region Laterality Modality Body, Pelvis, Abdomen Computed T omography 05/27/2024 2:25 AM EST Narrative 05/27/2024 4:55 AM EST ? [facility] ?[address] ?[place] [address] ? CT Scan Report ? Signed ? Patient: Spence,Iris ?MR#: [id number] ? : 1955 ?Acct:[id number] ? Age/Sex: 68 / F ?ADM Date: 05/27/24 ? Loc: HO.ED ? Attending Dr: ? Ordering Physician: Giovanni Toledo MD ?? Date of Service: 05/27/24 ?? Procedure(s): CT abdomen pelvis wo IV con ?? Accession Number(s): [id number] ? cc: Giovanni Toledo MD; Galina Arrington ? EXAMINATION: ?? CT ABDOMEN AND PELVIS WITHOUT CONTRAST ? CLINICAL INFORMATION: ?? Abdominal pain. ? COMPARISON: ?? April 21, 2015 ? TECHNIQUE: ?? Multidetector volumetric imaging was performed from the superior aspect ?? of the liver through the pubic symphysis. Sagittal and coronal ?? reformatted images were obtained on the technologist's workstation. ? This CT examination was performed using dose optimization techniques as ?? appropriate, variously including the following: ?? *Automated exposure control ?? *Adjustment of mA and/or kV according to patient size (this includes ?? techniques or standardized protocols for targeted exams where dose is ?? matched to indication/reason for exam; i.e. extremities or head) ?? *Use of iterative reconstruction technique ? DLP: ?? 523 mGy-cm ? FINDINGS: ?? LUNG BASES: There is scarring at the right lung base. ? LIVER, GALLBLADDER, AND BILIARY TREE: The liver is normal in size, ?? shape, and attenuation. No focal hepatic lesion or biliary ductal ?? dilatation is present. The gallbladder is unremarkable with no evidence ?? of radiopaque gallstones, gallbladder wall thickening, or obvious ?? pericholecystic inflammatory changes. ? PANCREAS: Unremarkable. ? SPLEEN: Unremarkable. ? ADRENAL GLANDS: There is left adrenal gland nodularity similar to ?? prior. ? KIDNEYS AND URETERS: The kidneys are normal in size, shape, and ?? attenuation. No hydronephrosis, hydroureter, or calculi seen. No ?? perinephric stranding. ? BLADDER: Unremarkable. ? GASTROINTESTINAL TRACT: The small and large bowel are unremarkable. The ?? appendix is unremarkable. ? ABDOMINAL WALL: No significant hernia is appreciated. ? LYMPH NODES: Normal. ? VASCULAR: There is mild atherosclerotic plaque of the abdominal aorta. ? PELVIC VISCERA: Unremarkable. ? OSSEOUS STRUCTURES: Unremarkable. ? CT/CT abdomen pelvis wo IV con ?? IMPRESSION: ?? No acute intra-abdominal or pelvic abnormality. ? Fleischner guidelines were followed. ? Electronically signed by: ??Alec Mazariegos MD ??05/27/2024 04:52 AM EST RP ? Dictated By: ?Alec Mazariegos MD ? Signed By: ?<Electronically signed by Alec Mazariegos MD in OV> ?05/27/24 0452 ? DD/ ? TD/TT: 05/27/24234 ? Beater Tender: ? Procedure Note Anitra Charles - 05/27/[address] [address] [address] Scan Report Signed Patient: Britney Spence#: [id number] : 8Acct:[id number] Age/Sex: 68 / FADM Date: 05/27/24 Loc: HO.ED Attending Dr: Ordering Physician: Giovanni Toledo MD Date of Service: 05/27/24 Procedure(s): CT abdomen pelvis wo IV con Accession Number(s): [id number] cc: Giovanni Toledo MD; Galina Arrington EXAMINATION: CT ABDOMEN AND PELVIS WITHOUT CONTRAST CLINICAL INFORMATION: Abdominal pain. COMPARISON: April 21, 2015 TECHNIQUE: Multidetector volumetric imaging was performed from the superior aspect of the liver through the pubic symphysis. Sagittal and coronal reformatted images were obtained on the technologist's workstation. This CT examination was performed using dose optimization techniques as appropriate, variously including the following: *Automated exposure control *Adjustment of mA and/or kV according to patient size (this includes techniques or standardized protocols for targeted exams where dose is matched to indication/reason for exam; i.e. extremities or head) *Use of iterative reconstruction technique DLP: 523 mGy-cm FINDINGS: LUNG BASES: There is scarring at the right lung base. LIVER, GALLBLADDER, AND BILIARY TREE: The liver is normal in size, shape, and attenuation. No focal hepatic lesion or biliary ductal dilatation is present. The gallbladder is unremarkable with no evidence of radiopaque gallstones, gallbladder wall thickening, or obvious pericholecystic inflammatory changes. PANCREAS: Unremarkable. SPLEEN: Unremarkable. ADRENAL GLANDS: There is left adrenal gland nodularity similar to prior. KIDNEYS AND URETERS: The kidneys are normal in size, shape, and attenuation. No hydronephrosis, hydroureter, or calculi seen. No perinephric stranding. BLADDER: Unremarkable. GASTROINTESTINAL TRACT: The small and large bowel are unremarkable. The appendix is unremarkable. ABDOMINAL WALL: No significant hernia is appreciated. LYMPH NODES: Normal. VASCULAR: There is mild atherosclerotic plaque of the abdominal aorta. PELVIC VISCERA: Unremarkable. OSSEOUS STRUCTURES: Unremarkable. CT/CT abdomen pelvis wo IV con IMPRESSION: No acute intra-abdominal or pelvic abnormality. Fleischner guidelines were followed. Electronically signed by: Alec Mazariegos MD 05/27/2024 04:52 AM [facility] [place] Dictated By: Alec Mazariegos MD Signed By: <Electronically signed by Alec Mazariegos MD in OV> 05/27/24 0452 DD/ 4 TD/TT: 05/27/24 023 Beater Tender: [facility] External Provider IMG CT PROCEDURES Edited Result - Final * (ABNORMAL) Urinalysis, Complete, with Reflex to Culture (05/27/2024 2:19 AM EST) Color Urine Yellow [facility] Appearance Urine Clear [facility] PH 6.5 5.0 - 9.0 [facility] Glucose Urine UA Negative Negative mg/dL [facility] Urine Blood Negative Negative [facility] Specific [place] - Urine 1.020 1.005 - 1.025 [facility] Urine Protein Negative Neg-Trace mg/dL [facility] Urine Ketones Negative Negative mg/dL [facility] Nitrite Urine Negative Negative [facility] Leukocyte Esterase Urine Trace(A) Negative [facility] RBC Urine 0-2 0 - 2 /HPF [facility] Urine WBC 0-5 0 - 5 /HPF [facility] Urine Squamous Epithelial Cell 0-2 0 - 2 /HPF [facility] Urine Bacteria None Seen None Seen [facility] Hyaline Casts, Urine 0-2 0 - 2 /LPF [facility] 05/27/2024 2:19 AM EST 05/27/2024 2:22 AM EST Narrative [facility] - 05/27/2024 2:30 AM EST [id number], Clean C[employer] us Generic External Data Provider LAB URINE ORDERAB LES Final Result Performing Organization Address City/State/[facility] Co de Phone Number [facility] [address] [place] [address] [phone] * CBC auto differential (05/26/2024 11:42 PM EST) White Blood Count 8.4 4.8 - 10.8 X10*3/uL [facility] Red Blood Count 4.58 4.20 - 5.50 X10*6/uL [facility] Hemoglobin 13.8 12.0 - 16.0 g/dl [facility] Hematocrit 41.9 37.0 - 47.0 % [facility] Mean Corpuscular Volume 91.5 80.0 - 98.0 fL [facility] Mean Corpuscular Hemoglobin 30.1 27.0 - 33.0 pg [facility] Mean Corpuscular HGB Conc 32.9 31.0 - 35.0 g/dl [facility] Red Cell Distribution Width 12.9 11.0 - 16.0 % [facility] Platelet Count 205 160 - 400 X10*3/uL [facility] Mean Platelet Volume 11.0 9.4 - 12.3 fL [facility] Neutrophils Percent Auto 60.4 45 - 73 % [facility] Imm Gran Pct Auto 0.2 0.0 - 0.4 % [facility] Lymphocytes Percent Auto 30.1 20 - 40 % [facility] Monocytes Percent Auto 7.4 2 - 11 % [facility] Eosinophils Percent Auto 1.3 0 - 4 % [facility] Basophils Percent Auto 0.6 0 - 2 % [facility] NRBC Pct Auto 0.0 0.0 - 0.2 /100WBC [facility] Neutrophils Absolute Auto 5.1 2.0 - 8.3 x10*3/uL [facility] Imm Gran Abs Auto 0.02 0.00 - 0.03 X10*3/uL [facility] Lymphocytes Absolute Auto 2.5 1.2 - 4.9 X10*3/uL [facility] Monocytes Absolute Auto 0.6 0.1 - 1.2 X10*3/uL [facility] Eosinophils Absolute Auto 0.1 0.0 - 0.4 X10*3/uL [facility] Basophils Absolute Auto 0.1 0.0 - 0.2 X10*3/uL [facility] NRBC Abs Auto 0.000 0.0 - 0.012 X10*3/uL [facility] 05/26/2024 11:4 2 PM EST 05/26/2024 11:46 PM EST us Generic External Data Provider LAB BLOOD ORDERAB LES Final Result [facility] [address] [place] [phone] * HPV mRNA E6/E7 w/Reflex to HPV Genotypes 16, 18/45 (02/16/2023 3:33 PM EDT) HPV nRNA E6/E7 Not Detected Not Detected [facility] Comment:Methodology: Transcr iption-Mediated AmplificationThis assay detects E6/E7 viral messenger RNA (mRNA) from 14high-risk HPV types (16,18,31,33,35,39,45,51,52,56,58,59,66,68).Cervical sources are required for HPV testing.If a vaginal source from a patient who has had atotal hysterectomy with removal of cervix wassubmitted, please contact the testing laboratoryfor alternative testing options.For additional information, please refer tohttp://education.Feedsky/faq/UNC664y3(This link if provided for information/educational purposes only.)THIS TEST WAS PERFORMED AT:[employer] [place] [phone] LADD MD HPV mRNA E6/E7 TNP [facility] HPV 16 RNA [facility] HPV 18/45 RNA [facility] 02/16/2023 3:33 PM EDT 02/20/2023 9:15 AM EDT Galina Arrington MD LAB CYTOLOGY ORDERABLES Final Result [facility] [address] [place] [phone] * Pap Smear (02/16/2023 3:33 PM EDT) 02/16/2023 3:33 PM EDT 02/20/2023 9:15 AM EDT Narrative [facility] - 02/28/2023 1:40 PM EDT ----- ------- Name: SpencePrisca ? Age/Sex: 67/F ? : 1955 Unit#: [id number] ?? Attend Dr: Galina Arrington ?Re02/16/23 ?Status: DEP REF ? Location: HO.HHCLNP ? Disch: ? ----- ------- SPEC : [id number] ?RECD: 02/20/23 ? STATUS: ??SOUT ? REQ NUM: [id number] ? SHA: 02/16/23-7004 ? SUBM DR: Galina Arrington ? ENTERED: ??02/20/23 ?SP TYPE: Pap Smr ?OTHR DR: ? ORDERED: ??Pap Smear ? Interpretation ?? Satisfactory for evaluation. ?? Negative for intraepithelial lesion or malignancy. ?HPV mRNA E6/E7: ?NOT DETECTED ? This assay detects E6/E7 viral messenger RNA (mRNA) from 14 high-risk HPV types (16, 18, ?? 31, 33, 35, 39, 45, 51, 52, 56, 58, 59, 66, 68) ?? HPV testing performed by [email or web address], [place], [place]. ??See reference laboratory ?? pion of the EMR for entire report. ?Clinical Information LMP: Unknown date Previous PAP test: 03/2020, NIL HPV neg ? Material Received ?? ThinPrep-Cervical ----- ------- Signed (signature on file) ZOE Grider (ASCP) 02/28/23 1340 ? ----- ------- ? END OF REPORT ? Galina Arrington MD LAB CYTOLOGY ORDERABLES Final Result [facility] [address] [place] [phone] * Mammography Report 1 (01/05/2022 3:10 PM EDT) Anatomical Region Laterality Modality Breast Bilateral Mammography 01/05/2022 3:10 PM EDT Narrative 01/25/2022 4:14 PM EDT Refer to the Notes tab for result details [facility] Procedure: Mammography Report 1 Procedure Note Provider, MD Abdiaziz - 10/15/2022 Refer to the Notes tab for result details [facility] Procedure: Mammography Report 1 Galina Arrington MD IMG BI PROCEDURES Final Result * Colonoscopy (10/26/2015) Colonoscopy Normal Normal Comment:repeat in 7 yrs Roro Bedoya NP HEALTH MAINTENANCE Edited Result - Final from Last 3 Months or Most Recently Relevant to Health Maintenance Insurance [facility] ST[place] ADULT Care Teams Director Of Optimization Relationship Specialty Start Date End Date Galina Arrington MD [address] [place] [phone] PCP - General Family Medicine 08/31/20
--- OUTSIDE RECORDS SUMMARY | 2024-08-13 17:08 | XMS_ITS | Encounter Summary ---
Author Organization [facility] Address [address] [place] [address] 7t [place] [address] Care Team Providers Care Magnetic Prospecting Operator Name Role Phone Galina Arrington MD Primary Care Provider [phone] Reason for Referral * Consultation (Routine) - Authorized Specialty Diagnoses / Procedures Referred By Stephie pacheco Referred To Contact Dermatology Diagnoses SK (seborrheic keratosis) Alopecia Galina Arrington MD [address] [place] [phone] Phone: tel: fax: Referral ID Status Reason Start Date Expiration Date Visits Requested Visits Authorized [id number] Authorized Specialty Services Required 07/29/2024 07/29/2025 1 1 * Consultation (Routine) - Authorized Specialty Diagnoses / Procedures Referred By Stephie pacheco Referred To Contact Optometry Diagnoses Type 2 diabetes mellitus with other specified complication, without long-term current use of insulin ([facility]) Galina Arrington MD [address] [place] [phone] Phone: tel: fax: Referral ID Status Reason Start Date Expiration Date Visits Requested Visits Authorized [id number] Authorized Specialty Services Required 07/29/2024 07/29/2025 1 1 * Imaging (Routine) - Closed Specialty Diagnoses / Procedures Referred By Stephie pacheco Referred To Contact Radiology Diagnoses Encounter for screening mammogram for malignant neoplasm of breast Procedures BI Mammogram Screening Tomosynthesis Bilateral Galina Arrington MD [address] [place] [phone] Phone: tel: fax: [facility] [address] [place], [place] Phone: tel: fax: Referral ID Status Reason Start Date Expiration Date Visits Re quested Visits Authorized [id number] Closed 07/29/2024 07/29/2025 1 1 Reason for Visit * Reason Comments Annual Exam Encounter Details Date Type Department Care Team (Late st Contact Info) Description 07/29/2024 10:30 AM EST Office Visit [facility] MEDICINE [address] [place], [place] [phone] Galina Arrington MD [address] [place], [place] [phone] Type 2 diabetes mellitus with other specified complication, without long-term current use of insulin (CMS/HCC) (Primary Dx); Encounter for screening mammogram for malignant neoplasm of breast; Pulmonary emphysema, unspecified emphysema type (CMS/HCC); Dietary counseling; Exercise counseling; Overweight; Multiple joint pain; SK (seborrheic keratosis); Encounter for immunization; Oral lesion; Alopecia Social History Tobacco Use Types Packs/Day Years [...] AM EDT documented as of this encounter Last Filed Vital Signs Vital Sign Reading Time Taken Comments Blood Pressure 124/74 07/29/2024 10:48 AM EST Pulse 81 07/29/2024 10:48 AM EST Temperature 36.7 ??C (98 ??F) 07/29/2024 10:48 AM EST Respiratory Rate 16 07/29/2024 10:48 AM EST Oxygen Saturation - - Inhaled Oxygen Concentration - - Weight 70.3 kg (155 lb) 07/29/2024 10:48 AM EST Height 152.4 cm (5') 07/29/2024 10:48 AM EST Body Mass Index 30.27 07/29/2024 10:48 AM EST documented in this encounter Progress Notes * Galina Arrington MD - 07/29/2024 10:30 AM EST SUBJECTIVE: Prisca Spence is a 68 y.o. year old female who presents for chronic disease management. Denies recent illness, ER visit, or hospitalization. 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 [place] [facility] [place] told that it was ok in the end. I cannot find records of this visit, I do see a pelvic US from 2019 that shows thickened endometrial stripe Not sexually active, not bothered by post-menopausal symptoms DM2 On Metformin, Glipizide, and Trulicity 0,75mh Has been out of Metformin and Glipizide for several months AIC 8.8 today Gluc [facility], declines symptoms Add ASA 81mg On rosuvastatin 40mg daily Due for foot exam, declines for now Due for vision exam, referral placed to [facility] vision HTN On Isorbide 60mg Switch to ACEi/ARB, Olmesartan Allergies Not active currently On Singulair 10mg daily GERD On Omeprazole 20mg daily, wean if and when possible Lifestyle mgmt Health Maintenance: Pap - 03/2020 NILM/HPV neg Colon- 05/2024 tubular adenoma; negative for high-grade dysplasia and carcinoma. Impression: 1. Normal colon and terminal ileum mucosa 2. Total of 1 polyp removed 3. External and internal hemorrhoids 4. Diverticulosis - Repeat colonoscopy in 5 years due to quality of the prep. Mammo- due Imms- Flu today STI-declines Patient Active Problem List Diagnosis Allergic rhinitis Alopecia Constipation Coronary artery disease involving platinum coronary artery of platinum heart without angina pectoris COVID-19 Diabetes mellitus (CMS/HCC) Dizziness Gastroesophageal reflux disease without esophagitis Hypercholesterolemia Mild intermittent asthma Multiple joint pain Pulmonary emphysema (CMS/HCC) Vitamin D deficiency Rash Vaginal itching Frequent urination Screening for cervical cancer Kidney stones History reviewed. No pertinent surgical history. No family history on file. Social History Social History Narrative Not on file Review of Systems Constitutional: Negative. Respiratory: Negative. Cardiovascular: Negative. Gastrointestinal: Negative. Musculoskeletal: Negative. Skin: Positive for rash. Hair loss OBJECTIVE: Vitals: 07/29/24 1048 BP: 124/74 BP Location: Left arm Patient Position: Sitting BP Cuff Size: Adult Pulse: 81 Resp: 16 Temp: 98 ??F (36.7 ??C) TempSrc: Oral Weight: 155 lb (70.3 kg) Height: 5' (1.524 m) Physical Exam Vitals and nursing note reviewed. Constitutional: Appearance: Normal appearance. HENT: Head: Normocephalic and atraumatic. Cardiovascular: Rate and Rhythm: Normal rate and regular rhythm. Pulses: Normal pulses. Heart sounds: Normal heart sounds. Pulmonary: Effort: Pulmonary effort is normal. Breath sounds: Normal breath sounds. Skin: General: Skin is warm and dry. Comments: Diffuse hair loss SK at L forehead and L abdomen Neurological: General: No focal deficit present. Mental Status: She is alert and oriented to person, place, and time. Psychiatric: Mood and Affect: Mood normal. Behavior: Behavior normal. ASSESSMENT/PLAN Problem List Items Addressed This Visit Alopecia Relevant Orders Referral to [facility] Derm Skin Adult Diabetes mellitus (CMS/HCC) - Primary Relevant Medications Dulaglutide 0.75 MG/0.5ML solution auto-injector gabapentin (Neurontin) 300 MG capsule metFORMIN XR (Glucophage-XR) 500 MG 24 hr tablet glipiZIDE XL (Glucotrol XL) 5 MG 24 hr tablet olmesartan (Benicar) 5 MG tablet aspirin 81 MG chewable tablet Other Relevant Orders POCT Glucose POCT HGB A1C (Completed) Lipid Panel, Standard Albumin, Random Urine W/Creatinine Comprehensive Metabolic Panel Referral to Optometry, Internal Multiple joint pain Relevant Medications gabapentin (Neurontin) 300 MG capsule Pulmonary emphysema (CMS/HCC) Other Visit Diagnoses Encounter for screening mammogram for malignant neoplasm of breast Relevant Orders BI Mammogram Screening Tomosynthesis Bilateral Dietary counseling Exercise counseling Overweight SK (seborrheic keratosis) Relevant Orders Referral to [facility] Derm Skin Adult Encounter for immunization Relevant Orders FLU VACCINE TRIVALENT HIGH DOSE 65 yrs + (Completed) Oral lesion Relevant Medications diphenhydrAMINE (Evelyne-Dryl) 25 MG tablet Follow Up: 3 months or sooner prn Allergies Allergen Reactions Hayden Oil Other reaction(s): hives Loratadine Other reaction(s): nausea: dizziness Peanut (Diagnostic) Other reaction(s): unspecified Penicillins Other reaction(s): unspecified Tramadol Nausea Only Current Outpatient Medications: Bisacodyl EC 5 MG EC tablet, TAKE 4 TABLETS BY MOUTH AT NOON THE DAY BEFORE COLONOSCOPY, Disp: , Rfl: aspirin 81 MG chewable tablet, Chew 1 tablet (81 mg) Once per day., Disp: 90 tablet, Rfl: 3 Blood Glucose Monitoring Suppl (ONE TOUCH ULTRA 2) w/Device kit, Use to monitor blood glucose twicedaily, Disp: 1 kit, Rfl: 0 cholecalciferol 50 MCG (2000 UT) capsule, Take 1 capsule (50 mcg) by mouth in the morning., Disp: 90 capsule, Rfl: 3 cyclobenzaprine (Flexeril) 10 MG tablet, TAKE 1 TABLET BY MOUTH EVERY NIGHT AT BEDTIME NEEDED FOR BACK PAIN, Disp: 30 tablet, Rfl: 3 diphenhydrAMINE (Evelyne-Dryl) 25 MG tablet, TAKE 1 TABLET BY MOUTH EVERY DAY AT BEDTIME NEEDED FORDIZZINESS, Disp: 30 tablet, Rfl: 1 Docusate Sodium (DSS) 100 MG capsule, take 1 capsule by oral route 2 times every day, Disp: 180 capsule, Rfl: 3 Dulaglutide 0.75 MG/0.5ML solution auto-injector, Inject 0.75 mg as directed 1 (one) time per week., Disp: 2 mL, Rfl: 11 DULoxetine (Cymbalta) [address] capsule, TAKE 1 CAPSULE BY MOUTH EVERY DAY FOR PAIN, Disp: 90 capsule, Rfl: 3 EPINEPHrine (Epipen) 0.3 MG/0.3ML injection syringe, INJECT 1 PEN IN THE MUSCLE ONE TIME DIRECTED, Disp: , Rfl: gabapentin (Neurontin) 300 MG capsule, Take 1 capsule (300 mg) by mouth 3 times daily., Disp: 90 capsule, Rfl: 11 glipiZIDE XL (Glucotrol XL) 5 MG 24 hr tablet, TAKE 1 TABLET BY MOUTH EVERY DAY WITH BREAKFAST, Disp: 90 tablet, Rfl: 3 glucose blood test strip, Check blood sugar twice a day, Disp: 100 each, Rfl: 12 ipratropium (Atrovent HFA) 17 MCG/ACT inhaler, INHALE 2 PUFFS BY INHALATION FOUR TIMES DAILY NEEDED, Disp: 12.9 g, Rfl: 1 Mapap Arthritis Pain 650 MG ER tablet, TAKE 2 TABLETS BY MOUTH EVERY 8 HOURS NEEDED. SWALLOW WHOLE WITH WATER AND DO NOT BREAK OR CRUSH OR DISSOLVE OR CHEW, Disp: 540 tablet, Rfl: 2 metFORMIN XR (Glucophage-XR) 500 MG 24 hr tablet, TAKE 1 TABLET IN THE MORNING, AND 2 TABLETS IN THE EVENING. DO NOT CRUSH, CHEW OR SPLIT, Disp: 90 tablet, Rfl: 3 montelukast (Singulair) 10 MG tablet, TAKE 1 TABLET BY MOUTH EVERY DAY IN THE EVENING FOR ALLERGIES, Disp: 90 tablet, Rfl: 3 olmesartan (Benicar) 5 MG tablet, Take 1 tablet (5 mg) by mouth Once per day. For blood pressure and kidney protection, Disp: 90 tablet, Rfl: 3 omeprazole (PriLOSEC) [address] capsule, TAKE 1 CAPSULE BY MOUTH EVERY DAY, Disp: 90 capsule, Rfl: 3 OneTouch Delica Lancets 33G misc, Use to test blood sugar 2 times daily, Disp: 100 each, Rfl: 11 rosuvastatin (Crestor) 40 MG tablet, TAKE 1 TABLET(40 MG) BY MOUTH IN THE MORNING DIRECTED, Disp: 90 tablet, Rfl: 3 simethicone (Mylicon) 80 MG chewable tablet, CHEW AND SWALLOW 1 TABLET BY MOUTH FOUR TIMES DAILY AFTER MEALS AND BEFORE BEDTIME NEEDED FOR GAS, Disp: 120 tablet, Rfl: 3 Setswana Translation: Provided by [facility] staff member FLAVIO Mcghee documented in this encounter Plan of Treatment Scheduled Orders Name Type Priority Associated Diagnoses Orde r Schedule BI Mammogram Screening Tomosynthesis Bilateral Imaging Routine Encounter for screening mammogram for malignant neoplasm of breast Expected: 07/29/2024, Expires: 09/26/2025 Scheduled Referrals Name Type Priority Associated Diagnoses Orde r Schedule Referral to Optometry, Internal Outpatient Referral Routine Type 2 diabetes mellitus with other specified complication, without long-term current use of insulin (CMS/HCC) Expected: 07/29/2024 (Approximate), Expires: 07/29/2025 Referral to [facility] Derm Skin Adult Outpatient Referral Routine SK (seborrheic keratosis) Alopecia Expected: 07/29/2024 (Approximate), Expires: 07/29/2025 documented as of this encounter Procedures Procedure Name Priority Date/Time Associated Diagnosis [...] complication, without long-term current use of insulin ([facility]) documented in this encounter Results * (ABNORMAL) POCT Glucose (07/29/2024 11:38 AM EST) Glucose Blood, POC 500(A) 60 - 200 mg/dL Comment:[facility] QC Media Lot # [id number] Lot# Expiration Date Blood Capillary blood specimen / Unknown 07/29/2024 11:38 AM EST Galina Arrington MD POINT OF CARE TEST ENTER/EDIT ORDERABLES Final Result * (ABNORMAL) Comprehensive Metabolic Panel (07/29/2024 11:20 AM EST) Sodium 138 135 - 145 mmol/L [facility] Potassium 4.3 3.3 - 5.1 mmol/L [facility] Chloride 106 96 - 108 mmol/L [facility] Carbon Dioxide 28 22 - 29 mmol/L [facility] Anion Gap 8(L) 12 - 20 [facility] Urea Nitrogen (BUN) 13 9 - 16 mg/dL [facility] Creatinine, Serum 0.80 0.5 - 1.4 mg/dL [facility] Estimated Glomerular Filt Rate >60 [facility] Comment:Chronic Kidney Disea se: Estimated GFR < 60 mL/min/[id number] Kidney Disease: Estimated GFR < 15 mL/min/1.73m2 Glucose 400(HH) 60 - 115 mg/dL [facility] Comment:Critical value for G SHI: Results called to and read backby: JADYN Francois Person calling: ANANT Date: 07/29/24 Time:1409 Calcium 9.8 8.4 - 10.2 mg/dL [facility] Bilirubin, Total 0.4 0.0 - 1.0 mg/dL [facility] Aspartate Amino Transferase 17 5 - 31 U/L [facility] Alanine Aminotransferase 18 0 - 31 U/L [facility] Total Protein 8.0 6.5 - 8.0 g/dL [facility] Albumin Level 4.0 3.5 - 5.0 g/dL [facility] Alkaline Phosphatase 78 39 - 117 U/L [facility] Blood Venous blood specimen / Unknown 07/29/2024 11:20 AM EST 07/29/2024 1:03 PM EST Galina Arrington MD LAB BLOOD ORDERABLES Final Res ult Performing Organization Address [facility] Co de Phone Number [facility] [address] [place] [phone] * Albumin, Random Urine W/Creatinine (07/29/2024 11:20 AM EST) Creatinine, Urine 47.63 mg/dL [facility] Microalbumin Urine 12.0 mg/L [facility] Microalbum Creatinine Ratio Ur 25.1 <30 ug/mg cr [facility] Comment:Albumin/Creatinine R atio Reference Ranges: Normal: < 30 ug/mg creatinine Microalbuminuria: 30 - 300 ug/mg creatinineClinical Albuminuria: > 300 ug/mg creatinine Urine (Urine, Random) 07/29/2024 11:20 AM EST 07/29/2024 1:02 PM EST Galina Arrington MD LAB URINE ORDERABLES Final Res ult Performing Organization Address City/[facility]/ZIP Co de Phone Number [facility] [address] [place] [address] [phone] * (ABNORMAL) Lipid Panel, Standard (07/29/2024 11:20 AM EST) Triglycerides 220(H) <150 mg/dL [facility] Comment:Desirable Triglyceri de: less than 150 mg/dLBorderline High Triglyceride 150-199 mg/dLHigh Triglyceride: 200-499 mg/dLVery High Triglyceride: greater than or equal to 5OO mg/dL Cholesterol 176 <200 mg/dL [facility] Comment:Desirable Cholestero l: less than 200 mg/dLBorderline High Cholesterol: 200-239 mg/dLHigh Cholesterol: greater than 239 mg/dL LDL Cholesterol Calculated 77 <100 mg/dL [facility] Comment:Desirable LDL: less than 100 mg/dLNear Optimal/Above Optimal LDL: 110- 129 mg/dLBorderline High LDL: 130-159 mg/dLHigh LDL: 160-189 mg/dLVery High LDL: greater than or equal to 190 mg/dL HDL Cholesterol 55 >40 mg/dL [facility] Comment:Desirable HDL: great er than 40 mg/dL Note: This HDL assay may give artificially low results in patients with liver disease. Blood Venous blood specimen / Unknown 07/29/2024 11:20 AM EST 07/29/2024 1:03 PM EST Galina Arrington MD LAB BLOOD ORDERABLES Final Res ult Performing Organization Address City/State/[facility] Co de Phone Number [facility] [address] [place] [phone] * (ABNORMAL) POCT HGB A1C (07/29/2024 11:12 AM EST) Hemoglobin A1C 8.8(A) 4.0 - 6.0 % QC Media Lot # [id number] Lot# Expiration Date Blood 07/29/2024 11:1 2 AM EST Galina Arrington MD POINT OF CARE TEST ENTER/EDIT ORDERABLES Final Result documented in this encounter Visit Diagnoses Diagnosis Type 2 diabetes mellitus with other specified complication, without long-term current use of insulin (CMS/HCC)- Primary Encounter for screening mammogram for malignant neoplasm of breast Pulmonary emphysema, unspecified emphysema type (CMS/HCC) Dietary counseling Dietary surveillance and counseling Exercise counseling Overweight Multiple joint pain Pain in joint, multiple sites SK (seborrheic keratosis) Other seborrheic keratosis Encounter for immunization Oral lesion Other and unspecified diseases of the oral soft tissues Alopecia documented in this encounter Care Teams Magnetic Prospecting Operator Relationship Specialty Start Date End Date Galina Arrington MD [address] [place] [phone] PCP - General Family Medicine 08/31/20 documented as of this encounter
--- OUTSIDE RECORDS SUMMARY | 2024-08-13 17:09 | XMS_ITS | Encounter Summary ---
Author Organization [employer] Address [address] [facility] [address]t [place] [address] Care Team Providers Care Cell Tower Climber Name Role Phone Galina Arrington MD Primary Care Provider [phone] Encounter Details Date Type Department Care Team (Late st Contact Info) Description 01/30/2024 Telephone [facility] MEDICINE [address] [place], [place] [phone] Galina Arrington MD [address] [place], [place] [phone] Social History Tobacco Use Types Packs/Day Years Used Date Smoking Tobacco: Never Smokeless Tobacco: Never Alcohol Use Standard Drinks/Week Comments Never 0 (1 standard drink = 0.6 oz pur e alcohol) Housing Stability Answer Date Recorded What is your housing situation today? I have tiffanie pierson 05/15/[address] you li ve. Do you have problems with any of the following? None of the above 05/15/2023 Food Insecurity Answer Date Recorded Within the past 12 months, y ou worried that your food would run out before you got money to buy more: Never True 05/15/2023 Within the past 12 months,th e food you bought just didn't last and you didn't have enough money to get more: Never True Transportation Answer Date Recorded In the past 12 months, has l ack of transportation kept you from medical appts, meetings, work or from getting things needed for daily living? Yes, it has kept me from medical appointments or getting medications. 05/03/2023 Utilities Answer Date Recorded In the past 12 months, has t he electric, gas, oil or water company threatened to shut off services in your home? No 05/15/2023 Depression Answer Date Recorded Patient Health Questionnaire-2 Score 0 08/21/2022 Comments Unknown Sex and Gender Information Value Date Recorded Sex Assigned at Female 05/22/2022 10:14 AM EDT Legal Sex Female 10:14 AM EDT Gender Identity Female 02/19/2023 12:53 PM EDT Sexual Orientation Choose not to disclose 2021 10:14 AM EDT documented as of this encounter Miscellaneous Notes * Telephone Encounter - Randy Hayes - 01/30/2024 11:32 AM EDT Tc from pt stating they've been receiving call but leader writer doesn't see anything documented. documented in this encounter Plan of Treatment Not on file documented as of this encounter Visit Diagnoses Not on filedocumented in this encounter Care Teams Cell Tower Climber Relationship Specialty Start Date End Date Galina Arrington MD [address] [place] [phone] PCP - General Family Medicine 08/31/20 documented as of this encounter
--- OUTSIDE RECORDS SUMMARY | 2024-08-13 17:09 | XMS_ITS | Encounter Summary ---
Author Organization [employer] Address [address] [place] [address] 7t [place] [address] Care Team Providers Care Social Media Project Manager Name Role Phone Galina Arrington MD Primary Care Provider [phone] Encounter Details Date Type Department Care Team (Late st Contact Info) Description 11/28/2022 Orders Only [facility] MEDICINE [address] [place] [address] [phone] Treva Ingram MD [address] [place], [place] [phone] Social History Tobacco Use Types Packs/Day Years Used Date Smoking Tobacco: Never Smokeless Tobacco: Never Alcohol Use Standard Drinks/Week Comments Never 0 (1 standard drink = 0.6 oz pur e alcohol) Depression Answer Date Recorded Patient Health Questionnaire-2 Score 0 08/21/2022 Comments Unknown Sex and Gender Information Value Date Recorded Sex Assigned at Female 05/22/2022 10:14 AM EDT Legal Sex Female 10:14 AM EDT Gender Identity Female 02/19/2023 12:53 PM EDT Sexual Orientation Choose not to disclose 2021 10:14 AM EDT COVID-19 Exposure Response Date Recorded In the last 10 days, have yo u been in contact with someone who was confirmed or suspected to have Coronavirus/COVID-19? No / Unsure 11/24/2022 2:40 PM EDT documented as of this encounter Plan of Treatment Not on file documented as of this encounter Visit Diagnoses Not on filedocumented in this encounter Care Teams Social Media Project Manager Relationship Specialty Start Date End Date Galina Arrington MD [address] [place] [phone] PCP - General Family Medicine 08/31/20 documented as of this encounter
--- OUTSIDE RECORDS SUMMARY | 2024-08-13 17:09 | XMS_ITS | Encounter Summary ---
Author Organization [employer] Address [address] [place] [address] 7t [place] [address] Care Team Providers Care Asset Liability Analyst Name Role Phone Galina Arrington MD Primary Care Provider [phone] Reason for Visit * Reason Comments Med Refill Encounter Details Date Type Department Care Team ([facility] st Contact Info) Description 12/19/2022 Refill [facility] MEDICINE [address] [place], [place] [phone] Galina Arrington MD [address] [place], [place] [phone] Type 2 diabetes mellitus with other specified complication, without long-term current use of insulin (CMS/HCC) Social History Tobacco Use Types Packs/Day Years [...] documented as of this encounter Visit Diagnoses Diagnosis Type 2 diabetes mellitus with other specified complication, without long-term current use of insulin (CMS/HCC) documented in this encounter Care Teams Asset Liability Analyst Relationship Specialty Start Date End Date Galina Arrington MD [address] [place] [phone] PCP - General Family Medicine 08/31/20 documented as of this encounter
--- OUTSIDE RECORDS SUMMARY | 2024-08-13 17:09 | XMS_ITS | Encounter Summary ---
Author Organization [employer] Address [address] [facility] [address] [place] [address] Care Team Providers Care Surety Bond Agent Name Role Phone Galina Arrington MD Primary Care Provider [phone] Reason for Visit * Reason Comments Med Refill Encounter Details Date Type Department Care Team ([facility] st Contact Info) Description 01/15/2024 Refill [facility] MEDICINE [address] [place], [place] [phone] Galina Arrington MD [address] [place], [place] [phone] Gastroesophageal reflux disease without esophagitis Social History Tobacco Use Types Packs/Day Years Used Date Smoking Tobacco: Never Smokeless Tobacco: Never Alcohol Use Standard Drinks/Week Comments Never 0 (1 standard drink = 0.6 oz pur e alcohol) Housing Stability Answer Date Recorded What is your housing situation today? I have tiffanie dangelo 05/15/[address] you li [...] as of this encounter Visit Diagnoses Diagnosis Gastroesophageal reflux disease without esophagitis Esophageal reflux documented in this encounter Care Teams Surety Bond Agent Relationship Specialty Start Date End Date Galina Arrington MD [address] [place] [phone] PCP - General Family Medicine 08/31/20 documented as of this encounter
--- OUTSIDE RECORDS SUMMARY | 2024-08-13 17:09 | XMS_ITS | Encounter Summary ---
Author Organization [employer] Address [address] [facility] 7t [place] [address] Care Team Providers Care Roper Operator Name Role Phone Galina Arrington MD Primary Care Provider [phone] Reason for Visit * Reason Onset Date Comments Created in Error 04/03/2024 Encounter Details Date Type Department Care Team (Late st Contact Info) Description 04/03/2024 Telephone [facility] 230 [place], [place] [phone] Galina Arrington MD 230 [place], [place] [phone] Created in Error Social History Tobacco Use Types Packs/Day Years [...] the past 12 months, has t he [employer], copygram, oil or water quitchen threatened to shut off services in your [...] on filedocumented in this encounter Care Teams Roper Operator Relationship Specialty Start Date End Date Galina Arrington MD [address] [place] [id number] PCP - General Family Medicine 08/31/20 documented as of this encounter
--- OUTSIDE RECORDS SUMMARY | 2024-08-13 17:09 | XMS_ITS | Encounter Summary ---
Author Organization [employer] Address [address] [place] [address] 7t [place] [address] Care Team Providers Care Green Chain Operator Name Role Phone Galina Arrington MD Primary Care Provider [phone] Reason for Referral * Consultation (Routine) - Closed Specialty Diagnoses / Procedures Referred By Stephie pacheco Referred To Contact Gastroenterology Diagnoses Screening for colon cancer Galina Arrington MD 230 [place] [address] Phone: tel: fax: [address] Phone: tel: fax: Referral ID Status Reason Start Date Expiration Date V isits Requested Visits Authorized [id number] Closed Specialty Services Required 08/13/2023 08/12/2024 1 1 Encounter Details Date Type Department Care Team (Late st Contact Info) Description 08/13/2023 Orders Only [facility] MED[facility]INE 230 [place], [place] [phone] Galina Arrington MD 230 [place], [place] [phone] Screening for colon cancer (Primary Dx) Social History Tobacco Use Types Packs/Day Years [...] as of this encounter Plan of Treatment Scheduled Referrals Name Type Priority Associated Diagnoses Order Schedule Referral to Gastroenterology Outpatient Referral Routine Screening for colon cancer Expected: 08/13/2023 (Approximate), Expires: 08/13/2024 documented as of this encounter Visit Diagnoses Diagnosis Screening for colon cancer- Primary Special screening for malignant neoplasms, colon documented in this encounter Care Teams Green Chain Operator Relationship Specialty Start Date End Date Galina Arrington MD [address] [place] [id number] PCP - General Family Medicine 08/31/20 documented as of this encounter
--- OUTSIDE RECORDS SUMMARY | 2024-08-13 17:09 | XMS_ITS | Encounter Summary ---
Author Organization [employer] Address [address] [place] [address] 7t [place] [address] Care Team Providers Care Calender Worker Helper Name Role Phone Galina Arrington MD Primary Care Provider [phone] Encounter Details Date Type Department Care Team (Late st Contact Info) Description 07/04/2022 Orders Only [facility] 230 [place], [place] [phone] Maritza Garcia LPN Social History Tobacco Use Types Packs/Day Years Used Date Smoking Tobacco: Never Assessed Comments Unknown Sex and Gender Information Value [...] on filedocumented in this encounter Care Teams Calender Worker Helper Relationship Specialty Start Date End Date Galina Arrington MD 230 [place], [place] [phone] PCP - General Family Medicine 08/31/20 documented as of this encounter
--- OUTSIDE RECORDS SUMMARY | 2024-08-13 17:09 | XMS_ITS | Encounter Summary ---
Author Organization [employer] Address [address] [place] [address] 7t [place] [address] Care Team Providers Care Broadband Installer Name Role Phone Galina Arrington MD Primary Care Provider [phone] Encounter Details Date Type Department Care Team (Late st Contact Info) Description 03/21/2023 Orders Only [facility] MEDICINE [address] [place] [address] [phone] Galina Arrington MD 230 [place], [place] [phone] Social History Tobacco Use Types Packs/Day Years [...] on filedocumented in this encounter Care Teams Broadband Installer Relationship Specialty Start Date End Date Galina Arrington MD [address] [place] [address] [phone] PCP - General Family Medicine 08/31/20 documented as of this encounter
--- OUTSIDE RECORDS SUMMARY | 2024-08-13 17:09 | XMS_ITS | Encounter Summary ---
Author Organization [employer] Address [address] [facility] 7t [place] [address] Care Team Providers Care Draftsperson Name Role Phone Galina Arrington MD Primary Care Provider [phone] Encounter Details Date Type Department Care Team (Late st Contact Info) Description 09/17/2023 Telephone [facility] MED[facility]INE 230 [place], [place] [phone] Galina Arrington MD 230 [place], [place] [phone] Social History Tobacco Use Types Packs/Day Years [...] on filedocumented in this encounter Care Teams Draftsperson Relationship Specialty Start Date End Date Galina Arrington MD 230 [place] [address] PCP - General Family Medicine 08/31/20 documented as of this encounter
--- OUTSIDE RECORDS SUMMARY | 2024-08-13 17:09 | XMS_ITS | Encounter Summary ---
Author Organization [employer] Address [address] [facility] 7t [place] [address] Care Team Providers Care Sand Digger Name Role Phone Galina Arrington MD Primary Care Provider [phone] Encounter Details Date Type Department Care Team (Late st Contact Info) Description 01/11/2024 Orders Only [facility] MED[facility]INE 230 [place], [place] [phone] Galina Arrington MD 230 [place], [place] [phone] Social History Tobacco Use Types Packs/Day Years [...] on filedocumented in this encounter Care Teams Sand Digger Relationship Specialty Start Date End Date Galina Arrington MD 230 [place] [address] PCP - General Family Medicine 08/31/20 documented as of this encounter
--- OUTSIDE RECORDS SUMMARY | 2024-08-13 17:09 | XMS_ITS | Encounter Summary ---
Author Organization [employer] Address [address] [place] [address] 7t [place] [address] Care Team Providers Care Field Associate Name Role Phone Galina Arrington MD Primary Care Provider [phone] Reason for Visit * Reason Onset Date Comments No Show 12/22/2022 Encounter Details Date Type Department Care Team ([facility] st Contact Info) Description 12/22/2022 Telephone [facility] 230 [place], [place] [phone] Galina Arrington MD 230 [place], [place] [phone] No Show Social History Tobacco Use Types Packs/Day Years [...] PM EDT documented as of this encounter Miscellaneous Notes * Telephone Encounter - Alina Sharif - 01/01/2023 1:50 PM EDT Pt no show to physical appointment on 01/01/2023. * Telephone Encounter - Naziakyara Ambrociomartín Yeung - 12/22/2022 10:56 AM EDT Tc from pt requesting to r/s appt for 12/22/2022 for a PAP Exam Please contact pt at [phone] Palauan Speaker documented in this encounter Plan of Treatment Not on file documented as of this encounter Visit Diagnoses Not on filedocumented in this encounter Care Teams Field Associate Relationship Specialty Start Date End Date Galina Arrington MD 230 [place] [address] PCP - General Family Medicine 08/31/20 documented as of this encounter
== END 2024-08-13 14:40 | disposition home or self-care (01) ==
LOC: HO.MAMMO 14:39
PROVIDERS: PCP General Practice; Visit Provider General Practice
DX: Z12.31 Encounter for screening mammogram for malignant neoplasm of breast (principal)
CPT/HCPCS: 77063; 77067

== ENCOUNTER → 2024-08-13 15:15 | Outpatient (BNV) | payer OTHER, SELFPAY | PROVIDERS: PCP General Practice; Visit Provider Internal Medicine | DX: Z12.31 Encounter for screening mammogram for malignant neoplasm of breast (principal) | CPT/HCPCS: 77063; 77067 ==

== ENCOUNTER 2025-01-02 15:39 | Outpatient (REF) | payer OTHER, SELFPAY ==
--- NOTE | ~2025-01-02 | XR_ITS ---
EXAMINATION: XR WRIST, RIGHT CLINICAL INFORMATION: right wrist pain COMPARISON: None available. TECHNIQUE: PA, lateral, navicular, oblique views of the right wrist. FINDINGS: The bones and soft tissues are normal. No fracture. Alignment is anatomic with normal joint spaces. No erosions or abnormal soft tissue calcifications. XR/XR wrist RT min 3V IMPRESSION: Unremarkable right wrist Electronically signed by: Sergio Mena MD 01/02/2025 05:43 PM EDT
--- OUTSIDE RECORDS SUMMARY | 2025-01-02 15:41 | XMS_ITS | Encounter Summary ---
Author Organization [employer] Address [address] [facility] [address] 7t [place] [address] Care Team Providers Care Hydroelectric Station Operator Name Role Phone Galina Arrington MD Primary Care Provider [phone] Encounter Details Date Type Department Care Team (Late st Contact Info) Description 01/30/2024 Telephone [facility] MEDICINE 230 [place], [place] [phone] Galina Arrington MD 230 [place], [place] [phone] Social History Tobacco Use Types Packs/Day Years [...] encounter Miscellaneous Notes * Telephone Encounter - Randyhelen Hayes - 01/30/2024 11:32 AM EDT Tc from pt stating they've been receiving call but medical technical writer doesn't see anything documented. documented in this encounter Plan of Treatment Upcoming Encounters Date Type Department Care Team (Late st Contact Info) Description 01/09/2025 2:45 PM EDT Office Visit [facility] MED[facility]INE [address] [place] [place] [phone] Marcus Miguel MD [address] [place] [address] 02/06/2025 4:00 PM EDT Office Visit [facility] MED[facility]INE [address] [place] [place] [address] Galina Arrington MD [address] [place] [address] documented as of this encounter Visit Diagnoses Not on filedocumented in this encounter Care Teams Hydroelectric Station Operator Relationship Specialty Start Date End Date Galina Arrington MD [address] [place] [address] PCP - General Family Medicine 08/31/20 documented as of this encounter
== END 2025-01-02 15:40 | disposition home or self-care (01) ==
LOC: HO.XRAY 15:39
PROVIDERS: PCP General Practice; Visit Provider Internal Medicine
DX: M25.531 Pain in right wrist (principal)
CPT/HCPCS: 73110

== ENCOUNTER → 2025-01-02 15:46 | Outpatient (BNV) | payer OTHER, SELFPAY | PROVIDERS: PCP General Practice; Visit Provider Radiology Diagnostic Radiology | DX: M25.531 Pain in right wrist (principal) | CPT/HCPCS: 73110 ==

== ENCOUNTER 2025-01-22 15:11 | Outpatient (REF) | payer OTHER, SELFPAY ==
--- NOTE | ~2025-01-22 | XR_ITS ---
EXAMINATION: XR WRIST, RIGHT CLINICAL INFORMATION: pain since falling 2 months ago COMPARISON: None available. TECHNIQUE: PA, lateral, spot navicular, and oblique views of the right wrist. FINDINGS: There is borderline widening of the scapholunate interval. No abnormalities are evident. XR/XR wrist RT min 3V IMPRESSION: Borderline widening of scapholunate interval raises question of the scapholunate ligament tear. Electronically signed by: Sergio Mena MD 01/22/2025 04:10 PM EDT
--- OUTSIDE RECORDS SUMMARY | 2025-01-22 15:14 | XMS_ITS | Encounter Summary ---
Author Organization [employer] Address [address] [facility] [address] 7t [place] [address] Care Team Providers Care Child Care Supervisor Name Role Phone Galina Arrington MD Primary Care Provider [phone] Encounter Details Date Type Department Care Team (Late st Contact Info) Description 01/30/2024 Telephone [facility] MEDICINE 230 [place], [place] [phone] Galina Arrington MD 230 [place], [place] [phone] Social History Tobacco Use Types Packs/Day Years [...] pt stating they've been receiving call but casualty underwriter doesn't see anything documented. documented in this encounter Plan of Treatment Upcoming Encounters Date Type Department Care Team (Late st Contact Info) Description 02/06/2025 4:00 PM EDT Office Visit [facility] MED[facility]INE [address] [place] [address] Galina Arrington MD 230 [place] [address] documented as of this encounter Visit Diagnoses Not on filedocumented in this encounter Care Teams Child Care Supervisor Relationship Specialty Start Date End Date Galina Arrington MD 230 [place] [address] PCP - General Family Medicine 08/31/20 documented as of this encounter
== END 2025-01-22 15:12 | disposition home or self-care (01) ==
LOC: HO.HHCX 15:11
PROVIDERS: PCP General Practice; Visit Provider Nurse Practitioner
DX: M25.531 Pain in right wrist (principal)
CPT/HCPCS: 73110

== ENCOUNTER → 2025-01-22 15:17 | Outpatient (BNV) | payer OTHER, SELFPAY | PROVIDERS: PCP General Practice; Visit Provider Radiology Diagnostic Radiology | DX: M25.531 Pain in right wrist (principal) | CPT/HCPCS: 73110 ==

== ENCOUNTER 2025-02-03 13:51 | Outpatient (AMB) | payer OTHER, SELFPAY ==
[2025-02-03 14:37] VITALS: BMI 29.3
--- NOTE | 2025-02-03 14:37 | A.OFFVIS_ITS ---
Vital Signs 02/03/25 14:37 Height 5 ft Weight 150 lb BMI 29.3 Intake Visit Reasons: OUTPATIENT COORDINATOR-RT wrist injury based on xray report Intake Note: right hand dominant equatorial guinean speaking female, presents today for a new patient visit for her right wrist. States pain started about 2 moths ago and has not improved. Patient recalls about 2 months ago she fell while coming out of her house, states she injured her wrist but was not sure if it was fractured. States she was seen at her PCP office who ordered xrays. She reports she was told she has fracture. Currently states she has constant pain, worse with activities and movement. She was sent RX for a brace but has not obtained it. Allergies almond (ALMOND) Allergy (Severe, Verified 02/03/25 14:43) ANAPHYLAXIS Penicillins Allergy (Intermediate, Verified 02/03/25 14:43) SWELLING HPI HPI OUTPATIENT COORDINATOR-RT wrist injury based on xray report: Details: Prisca is a 69 year old right hand dominant Tamaz[place] speaking woman who presents for right wrist pain. She reports falling when leaving her house ~2 months ago, in 11/2024. She says she landed on her right wrist and was worried she sprained it. She denies any prior treatment for her wrist. She says she was seen by her PCP who told her she had a Fx. She complains of constant pain in her right wrist, worse with activities or ROM. Most of her pain is in the back of her wrist. She reports feeling a clicking sensation or feeling like her bone is protruding occasionally. She says she was prescribed a wrist brace but she has yet to pick it up. She has a Hx of CAD, Asthma, COPD, & Diabetes. She has a stent in place. [facility] Medical History (Updated 02/03/25 @ 15:12 by Denis Fuentes) Renal calculi Asthma with COPD Elevated cholesterol CAD (coronary artery disease) HTN (hypertension) GERD (gastroesophageal reflux disease) Diabetes Multiple lipomas External hemorrhoids Surgical History H/O heart artery stent H/O tubal ligation H/O colonoscopy Family History Sister Lung cancer Social History Alcohol intake: never Patient Tobacco Use Status: Never used Tobacco Review of Systems Const All systems reviewed & are unremarkable except as noted in HPI and below Physical Exam Vital Signs: BMI result Body Mass Index 29.3 Const General: cooperative, healthy appearing and no acute distress Orientation/consciousness: patient oriented x3 HEENT Head: Yes normocephalic and Yes atraumatic Eyes EOM: EOMs intact bilaterally Resp Effort & Inspection: normal respiratory effort and able to speak in complete sentences Cardio Jugular venous distension: no JVD Skin General skin exam: turgor normal Rashes: no rashes Neuro General: patient oriented x3 Extrem Other: Evaluation of Right Upper Extremity: The patient is alert, oriented, and in no acute distress Neuro: Median, Ulnar, Radial nerves motor and sensory intact Vascular: Cap refill brisk ROM: We worked on ROM exercises today in clinic Skin: No lacerations or abrasions. General: No Ecchymosis. No Erythema or evidence of infection. Most TTP ECU tendon as it passes over distal ulna and carpis Patient reports Hx of clicking in her wrist with ROM DRUJ stable on exam She can pronate her wrist without difficulty She can fully supinate her wrist, however full supination causes pain in the ECU tendon area NTTP over scpaholunate interval NTTP over radiocarpal joint NTTP over 1st dorsal compartment Radiographs: 3 views of the right wrist from 01/02/25 & 01/22/25 were reviewed & compared by me today in clinic. They show some widening of the scapholunate interval Psych Appearance: grossly normal Affect: normal affect Attitude: cooperative Assessment & Plan Assessment & Plan (1) Right wrist pain: Code(s): M25.531 - Pain in right wrist Category: Medical (2) Diabetes: Code(s): E11.9 - Type 2 diabetes mellitus without complications Category: Medical (3) Asthma with COPD: Code(s): J44.89 - Other specified chronic obstructive pulmonary disease Category: Medical (4) Coronary artery disease: Code(s): I25.10 - Atherosclerotic heart disease of [place] coronary artery without angina pectoris Category: Medical Plan Assessment & Plan: 1. Right ulnar-sided wrist pain From a fall, DOI ~11/2024 2. Right hand & wrist stiffness Secondary to disuse I educated her about these conditions We will manage this conservatively at this time She was fitted for a velcro wrist splint, to be worn with daily activities out of the house for the next few weeks. She will remove this brace at home, particularly to work on ROM exercises She will work on gentle finger & wrist ROM exercises at home, 20X daily I ordered an MRI of her wrist for assessment She will follow up when completed for review. This should be a 30 minute appointment Scribed for Sejal Jin MD by Denis Fuentes, medical consultant, on 02/03/25 at 2:57 PM, EST. Orders: Orders MR wrist RT wo con 02/03/25 M25.531 - Pain in right wrist Coding Level of Care Code New Pt Level 3 (61111) Diagnoses Right wrist pain M25.531 Diabetes E11.9 Asthma with COPD J44.89 Coronary artery disease I25.10
--- OUTSIDE RECORDS SUMMARY | 2025-02-03 15:11 | XMS_ITS | Encounter Summary ---
Author Organization [employer] Address [address] [facility] [address] 7t [place] [address] Care Team Providers Care Spar Finisher Name Role Phone Galina Arrington MD Primary Care Provider [phone] Encounter Details Date Type Department Care Team (Late st Contact Info) Description 01/30/2024 Telephone [facility] MEDICINE 230 [place], [place] [phone] Galina Arrington MD 230 [place], [place] [phone] Social History Tobacco Use Types Packs/Day Years [...] pt stating they've been receiving call but life insurance underwriter doesn't see anything documented. documented in this encounter Plan of Treatment Upcoming Encounters Date Type Department Care Team (Late st Contact Info) Description 02/06/2025 4:00 PM EDT Office Visit [facility]INE 230 [place] [address] Galina Arrington MD [address] [place] [address] documented as of this encounter Visit Diagnoses Not on filedocumented in this encounter Care Teams Spar Finisher Relationship Specialty Start Date End Date Galina Arrington MD [address] [place] [address] PCP - General Family Medicine 08/31/20 documented as of this encounter
== END 2025-02-03 15:20 | disposition home or self-care (01) ==
LOC: HO.HOS 13:51
PROVIDERS: PCP General Practice; Visit Provider Orthopaedic Surgery
DX: M25.531 Pain in right wrist (principal); E11.9 Type 2 diabetes mellitus without complications; J44.89 Other specified chronic obstructive pulmonary disease; I25.10 Atherosclerotic heart disease of native coronary artery without angina pectoris
CPT/HCPCS: 99203

== ENCOUNTER → 2025-02-03 13:51 | Outpatient (BNVA) | payer OTHER, SELFPAY | PROVIDERS: PCP General Practice; Visit Provider Orthopaedic Surgery | DX: M25.531 Pain in right wrist (principal); E11.9 Type 2 diabetes mellitus without complications; J44.89 Other specified chronic obstructive pulmonary disease; I25.10 Atherosclerotic heart disease of native coronary artery without angina pectoris | CPT/HCPCS: 99202 ==

== ENCOUNTER 2025-02-26 18:07 | Outpatient (REF) | payer OTHER, SELFPAY ==
--- NOTE | ~2025-02-26 | MR_ITS ---
CLINICAL HISTORY: M25.531 - Pain in right wrist --- Additional Notes or Special Instructions: Please evaluate right ulnar-sided wrist pain. MR right wrist without gadolinium Comparison: None provided Findings: No acute fractures. No pathologic bone lesions. No effusion. There is increased intra substance signal with overlying edema in the extensor carpi ulnaris tendon. This may be related to partial tear versus tendinopathy. No scapholunate or lunotriquetral ligament tears. No tears of the flexor or extensor tendons. The triangular fibrocartilage complex is intact. The flexor retinaculum is intact. Intact median and ulnar nerves. IMPRESSION: 1. Extensor carpi ulnaris partial tendon tear versus tendinopathy. Clinical follow-up recommended.. This document has been electronically signed by: Glenn Kahn MD on 02/28/2025 09:02:08
--- OUTSIDE RECORDS SUMMARY | 2025-02-26 18:10 | XMS_ITS | Clinical Summary ---
Author Organization [facility] Address [address] [place] [address] Phone Care Team Providers Care Development Scientist Name Role Phone Unavailable Primary Care Provider Unavailabl e Social History Tobacco Use Types Packs/Day Years Used Date Smoking Tobacco: Never Assessed Comments Unknown Sex and Gender Information Value Date Recorded Sex Assigned at Not on file Legal Sex Female 2:10 PM EST Gender Identity Not on file Sexual Orientation Not on file Plan of Treatment Upcoming Encounters Date Type Department Care Team (Latest Contact Info) Description 05/12/2025 7:30 AM EDT Hospital Encounter [facility] OR [address] [place] [phone] Love Chairez MD [address] [place] [address] 05/12/2025 7:30 AM EDT - 05/12/2025 1:00 PM EDT Surgery [address] [phone] Love Chairez MD [address] [place] [phone] FACELIFT [[id number] (CPT )] Scheduled Procedures Name Priority Associated Diagnoses Date/Ti me FACELIFT Encounter for cosmetic surgery 05/12/2025 7:30 AM EDT Health Maintenance Due Date Last Done Comments Breast Cancer Screening 1955 DTaP,Tdap,and Td Vaccines (1 - Tdap) 1976 Pneumococcal Vaccine: 50+ Ye ars (1 of 1 - PCV) 10/12/2007 Zoster Vaccines (1 of 2) 10/12/2007 COVID-19 Vaccine ( - 2023-2 5 season) 2024 Depression Screening 07/23/2024 Influenza Vaccine (#1) 2025 RSV Immunization Adult Patie nts (1 - 1-dose 75+ series) 2032 HIB Vaccines Aged Out No longer eligi [...] on patient's age to complete this topic MMR Vaccines Aged Out No longer eligi ble based on patient's age to complete this topic Meningococcal ACWY Vaccine Aged Out N o longer eligible based on patient's age to complete this topic Meningococcal B Vaccine Aged Out No l onger eligible based on patient's age to complete this topic RSV Immunization Patients Un marcello 20 months Aged Out No longer eligible b ased on patient's age to complete this topic Varicella Vaccines Aged Out No longer eligible based on patient's age to complete this topic
--- OUTSIDE RECORDS SUMMARY | 2025-02-26 18:10 | XMS_ITS | Encounter Summary ---
Author Organization [employer] Address [address] [facility] [address] 7t [place] [address] Care Team Providers Care Dowel Inspector Name Role Phone Galina Arrington MD Primary Care Provider [phone] Encounter Details Date Type Department Care Team (Late st Contact Info) Description 01/30/2024 Telephone [facility] MEDICINE 230 [place], [place] [phone] Galina Arrington MD 230 [place], [place] [phone] Social History Tobacco Use Types Packs/Day Years [...] Miscellaneous Notes * Telephone Encounter - Randyhelen Hyaes - 01/30/2024 11:32 AM EDT Tc from pt stating they've been receiving call but financial writer doesn't see anything documented. documented in this encounter Plan of Treatment Upcoming Encounters Date Type Department Care Team (Late st Contact Info) Description 04/17/2025 2:45 PM EDT Office Visit [facility] MEDICINE 230 [place] [address] Galina Arrington MD 230 [place] [address] documented as of this encounter Visit Diagnoses Not on filedocumented in this encounter Care Teams Dowel Inspector Relationship Specialty Start Date End Date Galina Arrington MD [address] [place] [address] PCP - General Family Medicine 08/31/20 documented as of this encounter
== END 2025-02-26 18:08 | disposition home or self-care (01) ==
LOC: HO.MRI 18:07
PROVIDERS: PCP General Practice; Visit Provider Orthopaedic Surgery
DX: M25.531 Pain in right wrist (principal)
CPT/HCPCS: 73221

== ENCOUNTER → 2025-02-26 18:07 | Outpatient (BNV) | payer OTHER, SELFPAY | PROVIDERS: PCP General Practice; Visit Provider Specialist | DX: M25.531 Pain in right wrist (principal) | CPT/HCPCS: 73221 ==

== ENCOUNTER 2025-03-25 14:21 | Outpatient (AMB) | payer OTHER, SELFPAY ==
[2025-03-25 14:56] VITALS: BMI 29.3
--- NOTE | 2025-03-25 14:56 | A.OFFVIS_ITS ---
Vital Signs 03/25/25 14:56 Height 5 ft Weight 150 lb BMI 29.3 Intake Visit Reasons: OV- MRI review of Pain in right wrist Intake Note: Prisca 69 yr old right hand dominant female presents today for her right wrist MRI review. States IMPRESSION: 1. Extensor carpi ulnaris partial tendon tear versus tendinopathy. Clinical follow-up recommended.. Financial Systems Administrator Name: Mima BARRIOS/DIVINA Allergies almond (ALMOND) Allergy (Severe, Verified 03/25/25 14:57) ANAPHYLAXIS Penicillins Allergy (Intermediate, Verified 03/25/25 14:57) SWELLING HPI HPI OV- MRI review of Pain in right wrist: Details: Prisca is a 69 year old right hand dominant Indonesian speaking woman who returns for an MRI review of her right wrist pain. She reports falling when leaving her house in 11/2024. She says she landed on her right wrist and was worried she sprained it. She complains of constant pain in her right wrist, worse with activities or ROM. Most of her pain is in the back of her wrist. She reports feeling a clicking sensation or feeling like her bone is protruding occasionally. She has not been wearing her wrist brace as she says it has been causing her worse pain. She has a Hx of CAD, Asthma, COPD, & Diabetes. She has a stent in place. [facility] Medical History (Updated 03/25/25 @ 15:45 by Denis Fuentes) Renal calculi Asthma with COPD Elevated cholesterol CAD (coronary artery disease) HTN (hypertension) GERD (gastroesophageal reflux disease) Diabetes Multiple lipomas External hemorrhoids Surgical History H/O heart artery stent H/O tubal ligation H/O colonoscopy Family History Sister Lung cancer Social History Alcohol intake: never Patient Tobacco Use Status: Never used Tobacco Physical Exam Vital Signs: BMI result Body Mass Index 29.3 Extrem Other: Evaluation of Right Upper Extremity: The patient is alert, oriented, and in no acute distress Neuro: Median, Ulnar, Radial nerves motor and sensory intact Vascular: Cap refill brisk ROM: She can make a fist and extend all her digits Pain with resisted wrist extension DRUJ stable on exam She can pronate her wrist without difficulty Most TTP ECU tendon as it passes over distal ulna, proximally ~2.5cm Patient reports Hx of clicking in her wrist with ROM NTTP over scpaholunate interval NTTP over radiocarpal joint NTTP over 1st dorsal compartment Radiographs: 3 views of the right wrist from 01/02/25 & 01/22/25 were reviewed & compared by me today in clinic. They show some widening of the scapholunate interval Right wrist MRI: IMPRESSION: 1. Extensor carpi ulnaris partial tendon tear versus tendinopathy. Clinical follow-up recommended.. This document has been electronically signed by: Glenn Kahn MD on 02/28/2025 09:02:08 Office Procedures AMB Fracture Care Details: No fracture, injection Fracture Billing Code: Fracture Billing Code Assessment & Plan Assessment & Plan (1) Extensor carpi ulnaris tendinitis: Comment: R Code(s): M77.8 - Other enthesopathies, not elsewhere classified Category: Medical (2) Right wrist pain: Code(s): M25.531 - Pain in right wrist Category: Medical (3) Diabetes: Code(s): E11.9 - Type 2 diabetes mellitus without complications Category: Medical (4) Asthma with COPD: Code(s): J44.89 - Other specified chronic obstructive pulmonary disease Category: Medical (5) Coronary artery disease: Code(s): I25.10 - Atherosclerotic heart disease of [place] coronary artery without angina pectoris Category: Medical Plan Assessment & Plan: 1. Right ECU tendinopathy, possible partial longitudinal tendon tear From a fall, DOI ~11/2024 2. Right hand & wrist stiffness Secondary to disuse Improved I educated her about these conditions We will manage this conservatively at this time She was fitted for a new velcro wrist splint to be worn with daily activities for the next few weeks. She will remove this brace at home, particularly to work on ROM exercises I discussed activity modifications, she is to lift nothing heavy for the next few weeks. They should also avoid any heavy impact activities, falls, or sports activities, or other activities which cause her pain. She will work on gentle finger & wrist ROM exercises at home, 20X daily I explained that this can take a while to fully recover Injection #1: The risks and benefits of a steroid injection including but not limited to risk of damage to blood vessels, nerve, tendon, infection, skin bleaching, persistent or worsening pain, and failure to improve symptoms were discussed with the patient and they wish to proceed with the steroid injection. Once consent was obtained the skin over the dorsum of the Right ECU tendon, just proximal to the groove where it passes over the distal ulna, was sterilely prepped. I then injected with a combination of 1 mL of dexamethasone (4mg/ml) and 1% Lidocaine. The patient appears to have tolerated the procedure well and with no complications. She had very good early relief before leaving clinic today. She will follow up in 6-8 weeks to see how she is doing Scribed for Sejal Jin MD by Denis Fuentes, medical cost consultant, on 03/25/25 at 3:35 PM, EST. Coding Level of Care Code Est Pt Level 4 (98392) Diagnoses Extensor carpi ulnaris tendinitis M77.8 Right wrist pain M25.531 Diabetes E11.9 Asthma with COPD J44.89 Coronary artery disease I25.10 CPT Codes Fracture Care - Fracture Billing Code: Fracture Billing Code ([id number])
--- OUTSIDE RECORDS SUMMARY | 2025-03-25 16:40 | XMS_ITS | Encounter Summary ---
Author Organization [facility] Address [address] [facility] [address] 7[address] [place] [address] Care Team Providers Care Supervisor Irrigation Name Role Phone Galina Arrington MD Primary Care Provider [phone] Encounter Details Date Type Department Care Team ([facility] Contact Info) Description 03/21/2023 Orders Only [facility] [address] [place] [address] [phone] Galina Arrington MD [address] [place] [address] [phone] Social History Tobacco Use Types Packs/Day Years [...] as of this encounter Plan of Treatment Upcoming Encounters Date Type Department Care Team (Late st Contact Info) Description 04/17/2025 2:45 PM EDT Office Visit [facility] [address] [place] [address] [phone] Galina Arrington MD [address] [place] [address] [phone] documented as of this encounter Visit Diagnoses Not on filedocumented in this encounter Care Teams Supervisor Irrigation Relationship Specialty Start Date End Date Galina Arrington MD [address] [place] [phone] PCP - General Family Medicine 08/31/20 documented as of this encounter
--- OUTSIDE RECORDS SUMMARY | 2025-03-25 16:40 | XMS_ITS | Clinical Summary ---
Author Organization [facility] Address [address] [place] [address] Phone Care Team Providers Care Plasterer Stucco Name Role Phone Unavailable Primary Care Provider [...] Description 05/12/2025 7:30 AM EDT Hospital Encounter [facility] OR [address] [place] [address] [phone] Love Chairez MD [address] [place] [address] 05/12/2025 7:30 AM EDT - 05/12/2025 1:00 PM EDT Surgery [address] [phone] Love Chairez MD [address] [place] [phone] FACELIFT [[id number] (CPT )] Scheduled Procedures Name Priority Associated [...]
--- OUTSIDE RECORDS SUMMARY | 2025-03-25 16:40 | XMS_ITS | Encounter Summary ---
Author Organization [facility] Address [address] [facility] 7t [place] [address] Care Team Providers Care Cork Wirer Name Role Phone Galina Arrington MD Primary Care Provider [phone] Reason for Visit * Reason Comments Med Refill Encounter Details Date Type Department Care Team ([facility] st Contact Info) Description 01/15/2024 Refill [facility] [address] [place], [place] [phone] Galina Arrington MD [address] [place], [place] [phone] Gastroesophageal reflux disease without esophagitis Social History Tobacco Use Types Packs/Day Years Used Date Smoking Tobacco: Never Smokeless Tobacco: Never Alcohol Use Standard Drinks/Week Comments Never 0 (1 standard drink = 0.6 oz pur e alcohol) Housing Stability Answer Date Recorded What is your housing situation today? I have tiffaniesergio pierson 05/15/[address] you [...] Description 04/17/2025 2:45 PM EDT Office Visit [facility] [address] [place] [address] Galina Arrington MD [address] [place] [phone] documented as of this encounter Visit Diagnoses Diagnosis Gastroesophageal reflux disease without esophagitis Esophageal reflux documented in this encounter Care Teams Cork Wirer Relationship Specialty Start Date End Date Galina Arrington MD [address] [place] [phone] PCP - General Family Medicine 08/31/20 documented as of this encounter
--- OUTSIDE RECORDS SUMMARY | 2025-03-25 16:40 | XMS_ITS | Encounter Summary ---
Author Organization [employer] [facility] Address [address] [facility] 7[address] [place] [address] Care Team Providers Care Financial Aid Officer Name Role Phone Galina Arrington MD Primary Care Provider [phone] Encounter Details Date Type Department Care Team (Late st Contact Info) Description 11/28/2022 Orders Only [facility] [address] [place] [address] [phone] Treva Ingram MD [address] [place] [address] [phone] Social History Tobacco Use Types Packs/Day Years [...] Description 04/17/2025 2:45 PM EDT Office Visit [facility] [address] [place] [address] [phone] Galina Arrington MD [address] [place] [address] [phone] documented as of this encounter Visit Diagnoses Not on filedocumented in this encounter Care Teams Financial Aid Officer Relationship Specialty Start Date End Date Galina Arrington MD [address] [place] [address] PCP - General Family Medicine 08/31/20 documented as of this encounter
--- OUTSIDE RECORDS SUMMARY | 2025-03-25 16:40 | XMS_ITS | Encounter Summary ---
Author Organization [facility] [facility] Address [address] [place] [address] Care Team Providers Care Air Launch Weapons Technician Name Role Phone Galina Arrington MD Primary Care Provider [phone] Encounter Details Date Type Department Care Team (Late st Contact Info) Description 08/13/2023 Orders Only [facility] [address] [place], [place] [phone] Galina Arrintgon MD [address] [place], [place] [phone] Screening for colon cancer (Primary Dx) Social [...] Description 04/17/2025 2:45 PM EDT Office Visit [facility] [address] [place] [address] Galina Arrington MD [address] [place] [address] documented as of this encounter Visit Diagnoses Diagnosis Screening for colon cancer- Primary Special screening for malignant neoplasms, colon documented in this encounter Care Teams Air Launch Weapons Technician Relationship Specialty Start Date End Date Galina Arrington MD [address] [place] [phone] PCP - General Family Medicine 08/31/20 documented as of this encounter
--- OUTSIDE RECORDS SUMMARY | 2025-03-25 16:40 | XMS_ITS | Encounter Summary ---
Author Organization [employer] Address [address] 7[address] [place] [address] Care Team Providers Care Airport Driver Name Role Phone Galina Arrington MD Primary Care Provider [phone] Encounter Details Date Type Department Care Team (Late st Contact Info) Description 01/30/2024 Telephone [facility] [address] [place], [place] [phone] Galina Arrington MD [address] [place], [place] [phone] Social History Tobacco Use Types Packs/Day Years [...] pt stating they've been receiving call but handbook writer doesn't see anything documented. documented in this encounter Plan of Treatment Upcoming Encounters Date Type Department Care Team (Late st Contact Info) Description 04/17/2025 2:45 PM EDT Office Visit [facility] [address] [place] [address] Galina Arrington MD [address] [place] [address] documented as of this encounter Visit Diagnoses Not on filedocumented in this encounter Care Teams Airport Driver Relationship Specialty Start Date End Date Galina Arrington MD [address] [place] [address] PCP - General Family Medicine 08/31/20 documented as of this encounter
--- OUTSIDE RECORDS SUMMARY | 2025-03-25 16:40 | XMS_ITS | Clinical Summary ---
Author Organization [employer] Address [address] [facility] [address] [place] [address] Care Team Providers Care [employer] Officer Name Role Phone Galina Arrington MD Primary Care Provider Allergies Active Allergy Reactions Criticality Noted Date Comments [place] Oil 01/15/2017 Other reaction(s): hives Loratadine 10/18/2010 Other reaction(s): nausea: dizziness Peanut (Diagnostic) 10/18/2010 Other reaction(s): unspecified Penicillins 10/18/2010 Other reaction(s): unspecified Tramadol Nausea Only 10/18/2010 Medications EPINEPHrine (Epipen) 0.3 MG/0.3ML injection syringe INJECT 1 PEN IN THE MUSCLE ONE TIME DIRECTED 05/27/20 22 Active cholecalciferol 50 MCG (1999 UT) capsule Take 1 capsule (50 mcg) by mouth in the morning. 90 capsule 3 10/04/19 24 Active Blood Glucose Monitoring Suppl (ONE TOUCH ULTRA 2) w/Device kitIndications: Type 2 diabetes mellitus with other specified complication, without long-term current use of insulin ([facility]) Use to monitor blood glucose twice daily 1 kit 01/08/20 24 Active OneTouch Delica Lancets 33G miscIndications :Type 2 diabetes mellitus with other specified complication, without long-term current use of insulin ([facility]) Use to test blood sugar 2 times daily 100 each 11 01/16/20 24 Active Bisacodyl EC 5 MG EC tablet TAKE 4 TABLETS BY MOUTH AT NOON THE DAY BEFORE COLONOSCOPY 05/30/20 24 Active gabapentin (Neurontin) 300 MG capsuleIndicati ons:Type 2 diabetes mellitus with other specified complication, without long-term current use of insulin ([facility]),Multi ple joint pain Take 1 capsule (300 mg) by mouth 3 times daily. 90 capsule 11 07/29/19 25 026 Active aspirin 81 MG chewable tabletIndicatio ns:Type 2 diabetes mellitus with other specified complication, without long-term current use of insulin ([facility]) Chew 1 tablet (81 mg) Once per day. 90 tablet 3 07/29/19 25 026 Active montelukast (Singulair) 10 MG tabletIndicatio ns:Mild intermittent asthma without complication TAKE 1 TABLET BY MOUTH EVERY DAY IN THE EVENING FOR ALLERGIES 90 tablet 3 08/20/19 25 Active docusate sodium (Colace) 100 MG capsuleIndicati ons:Constipatio n, unspecified constipation type TAKE 1 CAPSULE BY MOUTH TWICE DAILY 180 capsule 3 11/01/19 25 Active omeprazole (PriLOSEC) [address] capsuleIndicati ons:Gastroesoph ageal reflux disease without esophagitis TAKE 1 CAPSULE BY MOUTH EVERY DAY 90 capsule 3 11/04/19 25 Active rosuvastatin (Crestor) 40 MG tablet TAKE 1 TABLET BY MOUTH EVERY MORNING 90 tablet 3 12/04/19 25 Active cromolyn (Opticrom) 4 % ophthalmic solution INSTILL 1 DROP INTO THE AFFECTED EYE FOUR TIMES A DAY IN THE MORNING, AT NOON, IN THE EVENING AND AT BEDTIME NEEDED 10 mL 12/04/19 25 Active DULoxetine (Cymbalta) [address] capsule TAKE 1 CAPSULE BY MOUTH EVERY DAY FOR PAIN 90 capsule 3 01/01/20 25 Active ketoconazole (NIZOral) 2 % shampooIndicati ons:Telogen effluvium Apply topically 2 (two) times a week. 120 mL 1 01/13/20 25 Active Blood Pressure kitIndications: Elevated BP without diagnosis of hypertension 1 each 2 times daily. 1 kit 01/16/20 25 026 Active simethicone (Mylicon) 80 MG chewable tablet CHEW AND SWALLOW 1 TABLET BY MOUTH FOUR TIMES DAILY AFTER MEALS AND BEFORE BEDTIME NEEDED FOR GAS 120 tablet 3 02/03/20 25 Active isosorbide mononitrate ER (Imdur) 60 MG 24 hr tabletIndicatio ns:Primary hypertension take 1 tablet by mouth every morning as directed 12/24/19 25 Active metFORMIN XR (Glucophage-XR) 500 MG 24 hr tabletIndicatio ns:Type 2 diabetes mellitus with other specified complication, without long-term current use of insulin (CMS/HCC) TAKE 1 TABLET BY MOUTH EVERY MORNING AND 2 TABLETS EVERY EVENING 270 tablet 3 02/07/20 25 Active Dulaglutide (Trulicity) 1.5 MG/0.5ML solution auto-injectorIn dications:Type 2 diabetes mellitus with other specified complication, without long-term current use of insulin ([facility]) Inject 1.5 mg under the skin 1 (one) time per week. 2 mL 3 02/07/20 25 Active olmesartan (Benicar) 5 MG tabletIndicatio ns:Type 2 diabetes mellitus with other specified complication, without long-term current use of insulin (CMS/HCC),Prima ry hypertension Take 1 tablet (5 mg) by mouth Once per day. For blood pressure and kidney protection 90 tablet 3 02/09/20 25 026 Active glipiZIDE XL (Glucotrol XL) 10 MG 24 hr tabletIndicatio ns:Type 2 diabetes mellitus with other specified complication, without long-term current use of insulin ([facility]) Take 1 tablet (10 mg) by mouth Once per day. Do not crush, chew, or split. 90 tablet 3 02/09/20 25 026 Active cyclobenzaprine (Flexeril) 10 MG tablet TAKE 1 TABLET BY MOUTH EVERY NIGHT AT BEDTIME NEEDED FOR BACK PAIN 30 tablet 3 03/02/20 25 Active diphenhydrAMINE (Evelyne-Dryl) 25 MG tabletIndicatio ns:Oral lesion TAKE 1 TABLET BY MOUTH AT BEDTIME NEEDED FOR DIZZINESS 20 tablet 1 03/13/20 25 Active diphenhydrAMINE (Evelyne-Dryl) 25 MG tabletIndicatio ns:Oral lesion TAKE 1 TABLET BY MOUTH EVERY DAY AT BEDTIME NEEDED FOR DIZZINESS 30 tablet 1 07/29/19 25 025 Discontinued cyclobenzaprine (Flexeril) 10 MG tablet TAKE 1 TABLET BY MOUTH EVERY NIGHT AT BEDTIME NEEDED FOR BACK PAIN 30 tablet 3 11/04/19 25 025 Discontinued Active Problems Problem Noted Date Diagnosed Date Primary hypertension 02/08/2025 Assessment & Plan (02/08/2025 7:37 PM EDT): Maintenance: Imdur 60 and Olmesartan 5mg BMP: ordered today Lipid Panel: ordered ASCVD Risk: calculate with upcoming labs - Aerobic exercise to reduce BP. Initial goal of 30 min walk 3-5x/week. Increase as tolerated. - low-sodium diet (goal: <2g/day) and heart healthy diet such as DASH to reduce BP and prevent ASCVD. - Home BP monitoring 1-2 x day with goal of <140/90. - Seek immediate medical attention for chest pain, palpitations, SOB, syncope, or sudden changes in mental status. - Do not change or discontinue current prescriptions without first consulting health care provider Class 1 obesity 02/06/2025 Right hand pain 12/29/2024 Assessment & Plan (12/29/2024 7:57 PM EDT): Patient fell almost 2 weeks ago, no swelling, mild tenderness on palption of ulnar prominence, will order a wrist xray, told to rest, apply ice, take tylenol PRN, Kidney stones 08/28/2023 Assessment & Plan (02/08/2025 7:35 PM EDT): History of same and feeling intermittent R flank pain, will order renal US to rule out recurrent kidney stones Screening for cervical cancer 02/16/2023 Assessment & Plan (02/16/2023 3:27 PM EDT): Pap BV panel Pulmonary emphysema 08/21/2022 Diabetes mellitus 01/07/2021 Assessment & Plan (02/08/2025 7:40 PM EDT): Current A1c: 9.8 Increase Trulicity to 1.5mg weekly and Glipizide to 10mg XL daily, continue Metformin 500mg BID BMP: Microalbumin: Foot Exam: Normal today Eye Exam: Referral to [facility] vision palced Statin: Yes ASA: Yes ERICK/ARB: Yes Encouraged regular aerobic exercise for improved glycemic control Encouraged daily foot checks Encouraged lean protein snacks and to avoid foods high in sugar and simple carbohydrates Treatment Goals: A1c goal: <7% FBG goal: <130 2 hour post prandial goal: <180 Assessment & Plan (08/24/2022 6:14 AM EST): Needs transfer appt A1C 7.8 today Multiple joint pain 01/01/2018 Assessment & Plan (08/24/2022 6:13 AM EST): Located in her hands, especially Also other small joints Finds relief with Gabapentin, refills given Allergic rhinitis 05/26/2015 Alopecia 05/26/2015 Constipation 05/26/2015 Coronary artery disease invo lving [place] coronary artery of [place] heart without angina pectoris 05/26/2015 Gastroesophageal reflux disease without esophagi tis 05/26/2015 Hypercholesterolemia 05/26/2015 Vitamin D deficiency 05/26/2015 Resolved Problems Problem Noted Date Diagnosed Date Resolved Date Vaginal itching 11/24/2022 02/06/2025 Assessment & Plan (11/24/2022 3:26 PM EDT): Empiric clotrimazole cream prescribed Frequent urination 11/24/2022 Assessment & Plan (11/24/2022 3:25 PM EDT): Drink plenty of water Do not hold urine UA and culture Rash 08/24/2022 02/06/2025 Assessment & Plan (08/24/2022 6:13 AM EST): One papule visible at R lower lip? Allergic reaction, blackhead? To take Benadryl for few doses over the next few days Cover with emollient F/u if persisten COVID-19 08/21/2022 02/06/2025 Dizziness 01/01/2018 02/06/2025 Mild intermittent asthma 05/26/2015 Encounters Date Type Department Care Team Description 03/12/2025 Refill [facility] [address] [place] [address] Galina Arrington MD Oral lesion 02/28/2025 Refill [facility] [address] [place] [address] Galina Arrington MD 02/26/2025 Orders Only [facility] External Provider, [facility] 02/12/[address] [address] Galina Arrington MD preop 02/06/2025 4:00 PM EDT Office Visit [address] [address] Galina Arrington MD Type 2 diabetes mellitus with other specified complication, without long-term current use of insulin ([facility]) (Primary Dx); Kidney stones; Primary hypertension 02/06/2025 Travel 02/05/[address] [address] Galina Arrington MD Chart Prep 01/31/[address] [address] Galina Arrington MD 01/22/[address] [address] Lucy Adame MD Prior Authorization 01/22/2025 Results Follow-Up [address] [address] Lucy Adame MD XR Wrist 3+ Views Right 01/15/2025 3:40 PM EDT Office Visit [facility] [address] [place] [phone] Mallika Rehman NP Right wrist pain (Primary Dx); Elevated BP without diagnosis of hypertension 01/15/2025 Travel 01/13/[address] [address] Galina Arrington MD Nurse Triage 01/09/2025 2:45 PM EDT Office Visit [address] [address] Marcus Miguel MD Telogen effluvium (Primary Dx) 01/09/2025 Travel 01/05/2025 Results Follow-Up [facility] [address] [place], [place] [phone] Jan More MD XR Wrist 3+ Views Right 01/05/2025 Orders Only [address] [address] Galina Arrington MD Coronary artery disease involving [place] coronary artery of [place] heart without angina pectoris (Primary Dx) 01/01/2025 Telephone [facility] [address], [place] [phone] Galina Arrington MD Referral 01/01/2025 Refill [facility] [address], [place] [phone] Galina Arrington MD Type 2 diabetes mellitus with other specified complication, without long-term current use of insulin ([facility]) 12/30/2024 Refill [facility] [address], [place] [phone] Galina Arrington MD 12/29/2024 6:20 PM EDT Office Visit [facility] [address], [place] [phone] KnoxJan Vazquez MD Right wrist pain (Primary Dx); Right hand pain from Last 3 Months Immunizations Immunization Administration Dates Next Due Influenza Injectable Quadriv [...] alcohol) Depression Answer Date Recorded Patient Health Questionnaire-9 Score 0 02/06/2025 Patient Health Questionnaire-9 Score 0 02/06/2025 Last PHQ-9: Questionnaire Data Not on file 0 02/06/2025 Housing Stability Answer Date Recorded What is [...] Date Recorded Patient Health Questionnaire-2 Score 0 02/06/2025 Internet Access Answer Date Recorded Internet Access [...] Sign Reading Time Taken Comments Blood Pressure 136/76 02/06/2025 4:17 PM EDT Pulse 80 02/06/2025 4:17 PM EDT Temperature 36.9 C (98.5 F) 02/06/2025 4:17 PM EDT Respiratory Rate 20 02/06/2025 4:17 PM EDT Oxygen Saturation 98% 01/15/2025 3:36 PM EDT Inhaled Oxygen Concentration - - Weight 72 kg (158 lb 12.8 oz) 02/06/2025 4:17 PM EDT Height 152.4 cm (5') 02/06/2025 4:17 PM EDT Body Mass Index 31.01 02/06/2025 4:17 PM EDT Plan of Treatment Upcoming Encounters Date Type Department Care Team (Late st Contact Info) Description 04/17/2025 2:45 PM EDT Office Visit [facility] [address] [place] [address] Galina Arrington MD [address] [place], [place] [phone] Health Maintenance Due Date Last Done Comments CT Colonography 1955 Dental Prophylaxis 1955 FIT DNA/Cologuard 1957 FIT 1955 FOBT 1955 Sigmoidoscopy 1955 Eye Exam 10/12/1967 Hepatitis C Screening 10/12/1975 RSV Patients and Patients Aged 60 years or older (1 - Risk 60-74 years 1-dose series) 2017 Zoster Vaccines (2 of 2) 06/08/2020 04/13/2020 DTaP/Tdap/Td Vaccines (2 - Td or Tdap) 08/29/2022 08/29/2012, 10/25/2004 Dental Oral Exam 07/20/2023 01/17/2023, 04/19/2017 Dental X-Ray: Bitewings 01/19/2024 01/17/2023, 04/19 COVID-19 Vaccine ( season) 2024 07/10/2022, 07/18/2021, 01/05/2021, Additional history exists Influenza Vaccine (#1) 2025 , 06/16/2023, 07/10/2022, Additional history exists Diabetes: Hemoglobin A1C 05/09/2025 025, 07/29/2024, 01/08/2024, Additional history exists SDOH Screening 07/22/2025 07/22/2024 Diabetes: Urine Protein Screening 07/29/2025 07/29/2024, 04/19/2022, 07/18/2021 Lipid Panel 07/29/2025 07/29/2024, 06/23, 10/15/2020 Mammogram 08/13/2025 08/13/2024, 12/21, 12/17/2018 Dental X-Ray: Full Mouth 01/18/2026 01/17/2023, 03/24 Alcohol/Substance Use Screening 02/06/2026 02/06/2025 Depression Screening 02/06/2026 02/06/2025, 02/07/20 Diabetes: Foot Exam 02/06/2026 02/06/2025 Tobacco Screening 02/06/2026 02/06/2025 Colonoscopy 05/23/2029 10/26/2015, 10/26/2015 Colorectal Cancer Screening 05/23/2029 Pneumococcal Vaccine: 50+ Years Completed 01/10/2022, 07/05/2006 Cervical Cancer Screening Discontinued HPV/Cotest Discontinued 02/16/2023, 03/24, 01/15/2017 Pap Smear Discontinued 02/16/2023, 04/13/2020 HIB Vaccines Aged Out No longer eligi [...] Procedure Name Priority Date/Time Associated Diagnosis Comments MR WRIST WO CONTRAST RIGHT Routine 02/28/2025 9:02 AM EDT POCT GLUCOSE Routine 02/06/2025 4:22 PM EDT Type 2 diabetes mellitus with other specified complication, without long-term current use of insulin (CMS/HCC) POCT GLYCATED HEMOGLOBIN, TOTAL Routine 02/06/2025 4:22 PM EDT Type 2 diabetes mellitus with other specified complication, without long-term current use of insulin (CMS/HCC) XR WRIST 3+ VIEWS RIGHT Routine 01/22/2025 2:37 PM EDT Right wrist pain XR WRIST 3+ VIEWS RIGHT Routine 01/02/2025 3:50 PM EDT Right wrist pain BI MAMMOGRAM SCREENING TOMOSYNTHESIS BILATERAL Routine 08/13/2024 2:45 PM EST Encounter for screening mammogram for malignant neoplasm of breast ALBUMIN, RANDOM URINE W/CREATININE Routine 07/29/2024 11:20 AM EST Type 2 diabetes mellitus with other specified complication, without long-term current use of insulin (CMS/HCC) LIPID PANEL, STANDARD Routine 07/29/2024 11:20 AM EST Type 2 diabetes mellitus with other specified complication, without long-term current use of insulin (CMS/HCC) HPV MRNA E6/E7 REFLEX TO HPV 16, 18/45 Routine 02/16/2023 3:33 PM EDT PAP SMEAR Routine 02/16/2023 3:33 PM EDT INTRAORAL - COMPLETE SERIES OF RADIOGRAPHIC IMAGES Routine 01/17/2023 2:30 PM EDT Defective dental christian COMPREHENSIVE ORAL EVALUATION - NEW OR ESTABLISHED PATIENT Routine 01/17/2023 2:30 PM EDT Defective dental christian HM COLONOSCOPY Routine 10/26/2015 9:21 AM EDT from Last 3 Months or Most Recently Relevant to Health Maintenance Results * MR Wrist w/o Contrast Right (02/28/2025 9:02 AM EDT) Anatomical Region Laterality Modality Upper Extremities, Wrist Right Magneti c Resonance 02/28/2025 9:02 AM EDT Narrative 02/28/2025 9:03 AM EDT [address] [address] Magnetic Resonance Report Signed Patient: Prisca Spence MR#: [id number] : 1955 Acct:[id number] Age/Sex: 69 / F ADM Date: 02/26/25 Loc: HO.MRI Attending Dr: Sejal Jin MD Ordering Physician: Sejal Jin MD Date of Service: 02/26/25 Procedure(s): MR wrist RT wo con Accession Number(s): [id number] cc: Galina Arrington; Sejal Jin MD CLINICAL HISTORY: M25.531 - Pain in right wrist --- Additional Notes or Special Instructions: Please evaluate right ulnar-sided wrist pain. MR right wrist without gadolinium Comparison: None provided Findings: No acute fractures. No pathologic bone lesions. No effusion. There is increased intra substance signal with overlying edema in the extensor carpi ulnaris tendon. This may be related to partial tear versus tendinopathy. No scapholunate or lunotriquetral ligament tears. No tears of the flexor or extensor tendons. The triangular fibrocartilage complex is intact. The flexor retinaculum is intact. Intact median and ulnar nerves. IMPRESSION: 1. Extensor carpi ulnaris partial tendon tear versus tendinopathy. Clinical follow-up recommended.. This document has been electronically signed by: Glenn Kahn MD on 02/28/2025 09:02:08 Dictated By: Glenn Kahn MD Signed By: <Electronically signed by Glenn Kanh MD in OV> 02/28/25902 DD/ 1 TD/TT: 02/28/25901 Fruit Bar Maker: Procedure Note Donotuseinterpreter, Image - 02/28/[address] [address] Magnetic Resonance Report Signed Patient: Prisca SpenceMR#: [id number] : 1955cct:[id number] Age/Sex: 69 / FADM Date: 02/26/25 Loc: HO.MRI Attending Dr: Sejal Jin MD Ordering Physician: Sejal Jin MD Date of Service: 02/26/25 Procedure(s): MR wrist RT wo con Accession Number(s): [id number] cc: Galina Arrington; Sejal Jin MD CLINICAL HISTORY: M25.531 - Pain in right wrist --- Additional Notes orSpecial Instructions: Please evaluate right ulnar-sided wrist pain. MR right wrist without gadolinium Comparison: None provided Findings: No acute fractures. No pathologic bone lesions. No effusion. There is increased intra substance signal with overlying edema in the extensor carpi ulnaris tendon. This may be related to partial tear versus tendinopathy. No scapholunate or lunotriquetral ligament tears. No tears of the flexor or extensor tendons. The triangular fibrocartilage complex is intact. The flexor retinaculum is intact. Intact median and ulnar nerves. IMPRESSION: 1. Extensor carpi ulnaris partial tendon tear versus tendinopathy. Clinical follow-up recommended.. This document has been electronically signed by: Glenn Kahn MD on 02/28/2025 09:02:08 Dictated By: Glenn Kahn MD Signed By: <Electronically signed by Glenn Kahn MD in OV> 02/28/25902 DD/ 1 TD/TT: 02/28/25901 Fruit Bar Maker: [facility] External Provider IMG MRI PROCEDURES Final Result * (ABNORMAL) POCT HGB A1C (02/06/2025 4:22 PM EDT) Hemoglobin A1C 9.8(A) 4.0 - 5.7 % Blood 02/06/2025 4:22 PM EDT Galina Arrington MD POINT OF CARE TEST ENTER/EDIT ORDERABLES Final Result * (ABNORMAL) POCT Glucose (02/06/2025 4:22 PM EDT) Glucose Blood, POC 333(A) 60 - 200 mg/dL Blood Capillary blood specimen / Unknown 02/06/2025 4:22 PM EDT Galina Arrington MD POINT OF CARE TEST ENTER/EDIT ORDERABLES Final Result * XR Wrist 3+ Views Right (01/22/2025 2:37 PM EDT) Only the most recent of2 resultswithin the time period is included. Anatomical Region Laterality Modality Upper Extremities, Wrist Right Radiogr aphic Imaging 01/22/2025 2:37 PM EDT Narrative 01/22/2025 4:13 PM EDT [address] [address] XRay Report Signed Patient: Prisca Spence MR#: [id number] : 1955 Acct:[id number] Age/Sex: 69 / F ADM Date: 01/22/25 Loc: HO.HHCX Attending Dr: Mallika Rehman Ordering Physician: Mallika Rehman Date of Service: 01/22/25 Procedure(s): XR wrist RT min 3V Accession Number(s): [id number] cc: Mallika Rehman; Galina Arrington EXAMINATION: XR WRIST, RIGHT CLINICAL INFORMATION: pain since falling 2 months ago COMPARISON: None available. TECHNIQUE: PA, lateral, spot navicular, and oblique views of the right wrist. FINDINGS: There is borderline widening of the scapholunate interval. No abnormalities are evident. XR/XR wrist RT min 3V IMPRESSION: Borderline widening of scapholunate interval raises question of the scapholunate ligament tear. Electronically signed by: Sergio Mena MD 01/22/2025 04:10 PM EDT Dictated By: Sergio Mena MD Signed By: <Electronically signed by Sergio Mena MD in OV> 01/22/25 1610 DD/ 1437 TD/TT: 01/22/25 1500 Fruit Bar Maker: Procedure Note Donotuseinterpreter, Image - 01/22/[address] [address] XRay Report Signed Patient: Britney Spence#: [id number] : 8Acct:[id number] Age/Sex: 69 / FADM Date: 01/22/25 Loc: HO.HHCX Attending Dr: Mallika Rehman Ordering Physician: Mallika Rehman Date of Service: 01/22/25 Procedure(s): XR wrist RT min 3V Accession Number(s): [id number] cc: Mallika Rehman; Galina Arrington EXAMINATION: XR WRIST, RIGHT CLINICAL INFORMATION: pain since falling 2 months ago COMPARISON: None available. TECHNIQUE: PA, lateral, spot navicular, and oblique views of the right wrist. FINDINGS: There is borderline widening of the scapholunate interval. No abnormalities are evident. XR/XR wrist RT min 3V IMPRESSION: Borderline widening of scapholunate interval raises question of the scapholunate ligament tear. Electronically signed by: Sergio Mena MD 01/22/2025 04:10 PM EDT Dictated By: Sergio Mena MD Signed By: <Electronically signed by Sergio Mena MD in OV> 01/22/25 1610 DD/ 1437 TD/TT: 01/22/25 1500 Fruit Bar Maker: Mallika Rehman TECHNICAL PROJECT COORDINATOR IMG XR PROCEDURES Edited Result - Final * BI Mammogram Screening Tomosynthesis Bilateral (08/13/2024 2:45 PM EST) Anatomical Region Laterality Modality Breast Bilateral Mammography 08/13/2024 2:45 PM EST Narrative 08/22/2024 12:16 PM EST [facility] [address] [place], [place] [address] Mammography Report Signed Patient: Prisca Spence MR#: [id number] : 1955 Acct:[id number] Age/Sex: 68 / F ADM Date: 08/13/24 Loc: MAMMO Attending Dr: Galina Arrington MD Ordering Physician: Galina Arrington Results: 2Benign F indings Date of Service: 08/13/24 Follow Up: 1 Year From Orig inal Mammogram Procedure(s): MM tomosynthesis screening BI Accession Number(s): [id number] cc: Galina Arrington EXAMINATION: MM SCREENING DIGITAL BREAST TOMOSYNTHESIS, BILATERAL CLINICAL INFORMATION: Screening. Asymptomatic. COMPARISON: Mammography: Comparison is made with available priors TECHNIQUE: Digital breast mammography with tomosynthesis is performed in both the craniocaudal and mediolateral oblique views along with computer-aided detection (CAD). FINDINGS: The breasts are heterogeneously dense, which may obscure small masses (ACR BI-RADS breast composition Category c). Focal asymmetry upper outer left breast posterior depth stable dating back to 2014. There are no significant masses, abnormal calcifications, or other abnormalities. MM/MM tomosynthesis screening BI IMPRESSION: No mammographic evidence of malignancy. ASSESSMENT: BI-RADS BI-RADS 2 - Benign Findings RECOMMENDATION: Routine annual mammography screening. 1 year F/U This examination should not preclude the clinical evaluation of a suspicious palpable abnormality. This patient's information was entered into a reminder system with a target due date for their next mammogram. Electronically signed by: Zulay Chris DO 08/22/2024 12:13 PM [facility] Dictated By: Zulay Chris DO Signed By: <Electronically signed by Zulay Chris DO in OV> 08/22/24 1213 DD/ 1445 TD/TT: 08/13/24 1505 Fruit Bar Maker: Procedure Note Donotuseinterpreter, Image - 08/22/2024 [facility] [address] [place] [address] Mammography Report Signed Patient: Britney Spence#: [id number] : 8Acct:[id number] Age/Sex: 68 / FADM Date: 08/13/24 Loc: HO.MAMMO Attending Dr: Galina Arrington MD Ordering Physician: Melida Arringtonults: 2Benign F indings Date of Service: 08/13/24Follow Up: 1 Year From Orig inal Mammogram Procedure(s): MM tomosynthesis screening BI Accession Number(s): [id number] cc: Galina Arrington EXAMINATION: MM SCREENING DIGITAL BREAST TOMOSYNTHESIS, BILATERAL CLINICAL INFORMATION: Screening. Asymptomatic. COMPARISON: Mammography: Comparison is made with available priors TECHNIQUE: Digital breast mammography with tomosynthesis is performed in both the craniocaudal and mediolateral oblique views along with computer-aided detection (CAD). FINDINGS: The breasts are heterogeneously dense, which may obscure small masses (ACR BI-RADS breast composition Category c). Focal asymmetry upper outer left breast posterior depth stable dating back to 2014. There are no significant masses, abnormal calcifications, or other abnormalities. MM/MM tomosynthesis screening BI IMPRESSION: No mammographic evidence of malignancy. ASSESSMENT: BI-RADS BI-RADS 2 - Benign Findings RECOMMENDATION: Routine annual mammography screening. 1 year F/U This examination should not preclude the clinical evaluation of a suspicious palpable abnormality. This patient's information was entered into a reminder system with a target due date for their next mammogram. Electronically signed by: Zulay Chris DO 08/22/2024 12:13 PM EST Dictated By: Zulay Chris DO Signed By: <Electronically signed by Zulay Chris DO in OV> 08/22/24 1213 DD/ 1445 TD/TT: 08/13/24 1505 Fruit Bar Maker: Galina Arrington MD IMG BI PROCEDURES Final Result * Albumin, Random Urine W/Creatinine (07/29/2024 11:20 AM EST) Creatinine, Urine 47.63 mg/dL [facility] Microalbumin Urine 12.0 mg/L [facility] Microalbum Creatinine Ratio Ur 25.1 <30 ug/mg cr [facility] Comment:Albumin/Creatinine R atio Reference Ranges: Normal: < 30 ug/mg creatinine Microalbuminuria: 30 - 300 ug/mg creatinineClinical Albuminuria: > 300 ug/mg creatinine Urine (Urine, Random) 07/29/2024 11:20 AM EST 07/29/2024 1:02 PM EST us Galina Arrington MD LAB URINE ORDERABLES Final Res ult Performing Organization Address [facility] Co de Phone Number [facility] [address] [place] [address] [phone] * (ABNORMAL) Lipid Panel, Standard (07/29/2024 11:20 AM EST) Triglycerides 220(H) <150 mg/dL [facility] Comment:Desirable Triglyceri de: less than 150 mg/dLBorderline High Triglyceride 150-199 mg/dLHigh Triglyceride: 200-499 mg/dLVery High Triglyceride: greater than or equal to 5OO mg/dL Cholesterol 176 <200 mg/dL [facility] Comment:Desirable Cholestero l: less than 200 mg/dLBorderline High Cholesterol: 200-239 mg/dLHigh Cholesterol: greater than 239 mg/dL LDL Cholesterol Calculated 77 <100 mg/dL [facility] Comment:Desirable LDL: less than 100 mg/dLNear Optimal/Above Optimal LDL: 110- 129 mg/dLBorderline High LDL: 130-159 mg/dLHigh LDL: 160-189 mg/dLVery High LDL: greater than or equal to 190 mg/dL HDL Cholesterol 55 >40 mg/dL [facility] Comment:Desirable HDL: great er than 40 mg/dL Note: This HDL assay may give artificially low results in patients with liver disease. Blood Venous blood specimen / Unknown 07/29/2024 11:20 AM EST 07/29/2024 1:03 PM EST us Galina Arrington MD LAB BLOOD ORDERABLES Final Res ult Performing Organization Address City/[facility]/ZIP Co de Phone Number [facility] [address] [place] [phone] [phone] * HPV mRNA E6/E7 w/Reflex to HPV Genotypes 16, 18/45 (02/16/2023 3:33 PM EDT) HPV nRNA E6/E7 Not Detected Not Detected [facility] Comment:Methodology: Transcr iption-Mediated AmplificationThis assay detects E6/E7 viral messenger RNA (mRNA) from 14high-risk HPV types (16,18,31,33,35,39,45,51,52,56,58,59,66,68).Cervical sources are required for HPV testing.If a vaginal source from a patient who has had atotal hysterectomy with removal of cervix wassubmitted, please contact the testing laboratoryfor alternative testing options.For additional information, please refer [email or web address](This link if provided for information/educational purposes only.)THIS TEST WAS PERFORMED AT:[facility] [place] [id number] LADD MD HPV mRNA E6/E7 [facility] HPV 16 RNA [facility] HPV 18/45 RNA [facility] 02/16/2023 3:33 PM EDT 02/20/2023 9:15 AM EDT Galina Arrington MD LAB CYTOLOGY ORDERABLES Final Result [facility] [address] [place] [phone] [phone] * Pap Smear (02/16/2023 3:33 PM EDT) 02/16/2023 3:33 PM EDT 02/20/2023 9:15 AM EDT Narrative [facility] - 02/28/2023 1:40 PM EDT ----- ------- Name: Prisca Spence Age/Sex: 67/F : 1955 Unit#: [id number] Attend Dr: Galina Arrington Re02/16/23 Status: DEP REF Location: [facility] Disch: ----- ------- SPEC : [id number] RECD: 02/20/23 STATUS: SJ RUIZ NUM: [id number] SHA: 02/16/[address] [facility] [address]: Galina Arrington ENTERED: 02/20/23 SP TYPE: Pap Smr OTHR DR: ORDERED: Pap Smear Interpretation Satisfactory for evaluation. Negative for intraepithelial lesion or malignancy. HPV mRNA E6/E7: NOT DETECTED This assay detects E6/E7 viral messenger RNA (mRNA) from 14 high-risk HPV types (16, 18, 31, 33, 35, 39, 45, 51, 52, 56, 58, 59, 66, 68) HPV testing performed by [facility] [employer], [place], [place]. See reference laboratory pion of the EMR for entire report. Clinical Information LMP: Unknown date Previous PAP test: 03/2020, NIL HPV neg Material Received ThinPrep-Cervical ----- ------- Signed (signature on file) ZOE Grider (ASC) 02/28/23 1340 ----- ------- END OF REPORT us Galina Arrington MD LAB CYTOLOGY ORDERABLES Final Result [facility] [address] [place] [phone] [phone] * Colonoscopy (10/26/2015) Colonoscopy Normal Normal Comment:repeat in 7 yrs Roro Bedoya NP HEALTH MAINTENANCE Edited Result - Final from Last 3 Months or Most Recently Relevant to Health Maintenance Insurance [facility] STANDARD [facility] [place] [facility] SENIOR LIVING OPTIONS (O D-SNP) [facility] [place] [id number] [facility] ST[facility] ADULT * Guarantor: Prisca Spence Account Type Relation to Patient Date of Phone Billing Address [facility] [place] Care Teams Armoured Corps Officer Relationship Specialty Start Date End Date Galina Arrington MD [address] [place] [phone] PCP - General Family Medicine 08/31/20
--- OUTSIDE RECORDS SUMMARY | 2025-03-25 16:40 | XMS_ITS | Encounter Summary ---
Author Organization [employer] Address [address] 7[address] [place] [address] Care Team Providers Care Boom Tender Name Role Phone Galina Arrington MD Primary Care Provider [phone] Encounter Details Date Type Department Care Team (Late st Contact Info) Description 01/11/2024 Orders Only [facility] [address] [place], [place] [phone] Galina Arrington MD [address] [place], [place] [phone] Social History Tobacco Use Types Packs/Day Years [...] 2:45 PM EDT Office Visit [facility] [address] [place] [address] Galina Arrington MD [address] [place] [address] documented as of this encounter Visit Diagnoses Not on filedocumented in this encounter Care Teams Boom Tender Relationship Specialty Start Date End Date Galina Arrington MD [address] [place] [address] [phone] PCP - General Family Medicine 08/31/20 documented as of this encounter
--- OUTSIDE RECORDS SUMMARY | 2025-03-25 16:40 | XMS_ITS | Encounter Summary ---
Author Organization [employer] Address [address] [facility] 7t [place] [address] Care Team Providers Care Animal Assisted Therapist Name Role Phone Galina Arrington MD Primary Care Provider [phone] Reason for Referral * Consultation (Routine) - Closed Specialty Diagnoses / Procedures Referred By Contac t Referred To Contact Cardiology Diagnoses Coronary artery disease involving [place] coronary artery of [place] heart without angina pectoris Galina Arrington MD [address] [place] [address] Phone: tel: fax: [facility] [address] [place], [place] Phone: tel: fax: Referral ID Status Reason Start Date Expiration Date V isits Requested Visits Authorized [id number] Closed Specialty Services Required 01/05/2025 01/05/2026 1 1 Encounter Details Date Type Department Care Team (Late st Contact Info) Description 01/05/2025 Orders Only [facility] [address] [place], [place] [phone] Galina Arrington MD [address] [place], [place] [phone] Coronary artery disease involving [place] coronary artery of [place] heart without angina pectoris (Primary Dx) Social History Tobacco Use Types [...] Upcoming Encounters Date Type Department Care Team ([facility] st Contact Info) Description 04/17/2025 2:45 PM EDT Office Visit [facility] [address] [place] [address] Galina Arrington MD [address] [place] [address] Scheduled Referrals Name Type Priority Associated Diagnoses Order Schedule Referral to Cardiology Outpatient Referral Routine Coronary artery disease involving [place] coronary artery of [place] heart without angina pectoris Expected: 01/05/2025 (Approximate), Expires: 01/05/2026 documented as of this encounter Visit Diagnoses Diagnosis Coronary artery disease involving [place] coronary artery of [place] heart without angina pectoris- Primary documented in this encounter Care Teams Animal Assisted Therapist Relationship Specialty Start Date End Date Galina Arrington MD [address] [place] [phone] PCP - General Family Medicine 08/31/20 documented as of this encounter
--- OUTSIDE RECORDS SUMMARY | 2025-03-25 16:40 | XMS_ITS | Encounter Summary ---
Author Organization [employer] Address [address] [facility] 7t [place] [address] Care Team Providers Care Electronic Publications Specialist Name Role Phone Galina Arrington MD Primary Care Provider [phone] Reason for Visit * Reason Onset Date Comments Referral 01/01/2025 Encounter Details Date Type Department Care Team ([facility] st Contact Info) Description 01/01/2025 Telephone [facility] [address] [place], [place] [phone] Galina Arrington MD [address] [place], [place] [phone] Referral Social History Tobacco Use Types Packs/Day Years [...] Telephone Encounter - Octavia Bowden RN - 01/02/2025 1:14 PM EDT TC placed to patient [phone] in regards to below message. Patient would like to be referred tocardiology (patient has been established with [facility] cardiology in the past however has not seen them in a while). Patient was seeing [facility] cardiology r/t CAD s/p cardiac catheterization . Please review and advise if agreeable to place referral to [facility] cardiology to re- establish care. * Telephone Encounter - Sung Ma - 01/01/2025 3:34 PM EDT Tc from patient requesting a referral to see a bakery technician. Patient reports that it has been several years since last evaluation and mentions having a mallita (possible stent). documented in this encounter Plan of Treatment Upcoming Encounters Date Type Department Care Team (Late st Contact Info) Description 04/17/2025 2:45 PM EDT Office Visit [facility] [address] [place] [address] Galina Arrington MD [address] [place] [address] documented as of this encounter Visit Diagnoses Not on filedocumented in this encounter Care Teams Electronic Publications Specialist Relationship Specialty Start Date End Date Galina Arrington MD [address] [place] [address] PCP - General Family Medicine 08/31/20 documented as of this encounter
--- OUTSIDE RECORDS SUMMARY | 2025-03-25 16:40 | XMS_ITS | Encounter Summary ---
Author Organization [employer] Address [address] 7[address] [place] [address] Care Team Providers Care Supervisor Scouring Pads Name Role Phone Galina Arrington MD Primary Care Provider [phone] Encounter Details Date Type Department Care Team (Late st Contact Info) Description 09/17/2023 Telephone [facility] [address] [place], [place] [phone] Galina Arrington MD [address] [place], [place] [phone] Social History Tobacco Use Types Packs/Day Years [...] Description 04/17/2025 2:45 PM EDT Office Visit [facility] [address] [place] [address] Galina Arrington MD [address] [place] [address] documented as of this encounter Visit Diagnoses Not on filedocumented in this encounter Care Teams Supervisor Scouring Pads Relationship Specialty Start Date End Date Galina Arrington MD [address] [place] [address] [phone] PCP - General Family Medicine 08/31/20 documented as of this encounter
--- OUTSIDE RECORDS SUMMARY | 2025-03-25 16:40 | XMS_ITS | Encounter Summary ---
Author Organization [employer] Address [address] [facility] 7t [place] [address] Care Team Providers Care Professor Of Forestry Name Role Phone Galina Arrington MD Primary Care Provider [phone] Reason for Visit * Reason Comments Med Refill Encounter Details Date Type Department Care Team ([facility] Contact Info) Description 12/19/2022 Refill [facility] [address] [place] [address] [phone] Galina Arrington MD [address] [place] [address] [phone] Type 2 diabetes mellitus with other specified complication, without long-term current use of insulin ([facility]) Social History Tobacco Use Types Packs/Day Years [...] Upcoming Encounters Date Type Department Care Team ([facility] Contact Info) Description 04/17/2025 2:45 PM EDT Office Visit [facility] [address] [place] [address] [phone] Galina Arrington MD [address] [place], [place] [phone] documented as of this encounter Visit Diagnoses Diagnosis Type 2 diabetes mellitus with other specified complication, without long-term current use of insulin ([facility]) documented in this encounter Care Teams Professor Of Forestry Relationship Specialty Start Date End Date Galina Arrington MD [address] [place], [place] [phone] PCP - General Family Medicine 08/31/20 documented as of this encounter
--- OUTSIDE RECORDS SUMMARY | 2025-03-25 16:40 | XMS_ITS | Encounter Summary ---
Author Organization [employer] Address [address] [facility] 7t [place] [address] Care Team Providers Care Improvement Intern Name Role Phone Galina Arrington MD Primary Care Provider [phone] Reason for Visit * Reason Comments Med Refill Encounter Details Date Type Department Care Team ([facility] st Contact Info) Description 08/25/2024 Refill [facility] [address] [place], [place] [phone] Galina Arrington MD [address] [place], [place] [phone] Oral lesion Social History Tobacco Use Types Packs/Day Years [...] Description 04/17/2025 2:45 PM EDT Office Visit [facility] [address] [place] [address] Galina Arrington MD [address] [place] [phone] documented as of this encounter Visit Diagnoses Diagnosis Oral lesion Other and unspecified diseases of the oral soft tissues documented in this encounter Care Teams Improvement Intern Relationship Specialty Start Date End Date Galina Arrington MD [address] [place] [phone] PCP - General Family Medicine 08/31/20 documented as of this encounter
--- OUTSIDE RECORDS SUMMARY | 2025-03-25 16:40 | XMS_ITS | Encounter Summary ---
Author Organization [employer] Address [address] [facility] [address] 7[address] [place] [address] Care Team Providers Care Paper Bag Making Machinist Name Role Phone Galina Arrington MD Primary Care Provider [phone] Reason for Visit * Reason Onset Date Comments Created in Error 04/03/2024 Encounter Details Date Type Department Care Team ([facility] st Contact Info) Description 04/03/2024 Telephone [facility] 230 [place], [place] [phone] Galina Arrington MD [address] [place], [place] [phone] Created in Error Social History Tobacco Use [...] Description 04/17/2025 2:45 PM EDT Office Visit [facility] 230 [place] [address] Galina Arrington MD [address] [place] [phone] documented as of this encounter Visit Diagnoses Not on filedocumented in this encounter Care Teams Paper Bag Making Machinist Relationship Specialty Start Date End Date Galina Arrington MD [address] [place] [phone] PCP - General Family Medicine 08/31/20 documented as of this encounter
--- OUTSIDE RECORDS SUMMARY | 2025-03-25 16:40 | XMS_ITS | Encounter Summary ---
Author Organization [employer] Address [address] [facility] 7t [place] [address] Care Team Providers Care Drain Cleaner Plumber Name Role Phone Galina Arrington MD Primary Care Provider [phone] Encounter Details Date Type Department Care Team (Late st Contact Info) Description 07/04/2022 Orders Only [facility] [address] [place] [address] Maritza Garcia LPN Social History Tobacco Use [...] Description 04/17/2025 2:45 PM EDT Office Visit [facility] [address] [place] [address] Galina Arrington MD [address] [place] [address] documented as of this encounter Visit Diagnoses Not on filedocumented in this encounter Care Teams Drain Cleaner Plumber Relationship Specialty Start Date End Date Galina Arrington MD [address] [place] [address] PCP - General Family Medicine 08/31/20 documented as of this encounter
--- OUTSIDE RECORDS SUMMARY | 2025-03-25 16:40 | XMS_ITS | Encounter Summary ---
Author Organization [employer] Address [address] [facility] 7t [place] [address] Care Team Providers Care Face Boss Name Role Phone Galina Arrington MD Primary Care Provider [phone] Reason for Visit * Reason Onset Date Comments No Show 12/22/2022 Encounter Details Date Type Department Care Team ([facility] st Contact Info) Description 12/22/2022 Telephone [facility] [address] [place], [place] [phone] Galina Arrington MD [address] [place], [place] [phone] No Show Social History Tobacco Use Types [...] appointment on 01/01/2023. * Telephone Encounter - Dominick Yeung - 12/22/2022 10:56 AM EDT Tc from pt requesting to r/s appt for 12/22/2022 for a PAP Exam Please contact pt at [phone] Andorran Speaker documented in this encounter Plan of Treatment Upcoming Encounters Date Type Department Care Team (Late st Contact Info) Description 04/17/2025 2:45 PM EDT Office Visit [facility] [address] [place], [place] [phone] Galina Arrington MD [address] [place] [phone] documented as of this encounter Visit Diagnoses Not on filedocumented in this encounter Care Teams Face Boss Relationship Specialty Start Date End Date Galina Arrington MD [address] [place] [address] [phone] PCP - General Family Medicine 08/31/20 documented as of this encounter
--- OUTSIDE RECORDS SUMMARY | 2025-03-25 16:40 | XMS_ITS | Encounter Summary ---
Author Organization [employer] Address [address] [facility] [address] [place] [address] Care Team Providers Care Sheep Shearer Name Role Phone Galina Arrington MD Primary Care Provider [phone] Encounter Details Date Type Department Care Team (Late st Contact Info) Description 08/06/2024 Telephone [facility] [address] [place], [place] [phone] Galina Arrington MD 230 [place], [place] [phone] Social History Tobacco Use Types Packs/Day Years [...] Description 04/17/2025 2:45 PM EDT Office Visit [facility] [address] [place] [address] Galina Arrington MD [address] [place] [phone] documented as of this encounter Visit Diagnoses Not on filedocumented in this encounter Care Teams Sheep Shearer Relationship Specialty Start Date End Date Galina Arrington MD [address] [place] [phone] PCP - General Family Medicine 08/31/20 documented as of this encounter
== END 2025-03-25 16:06 | disposition home or self-care (01) ==
LOC: HO.HOS 14:22
PROVIDERS: PCP General Practice; Visit Provider Orthopaedic Surgery
DX: M77.8 Other enthesopathies, not elsewhere classified (principal); M25.531 Pain in right wrist; E11.9 Type 2 diabetes mellitus without complications; J44.89 Other specified chronic obstructive pulmonary disease; I25.10 Atherosclerotic heart disease of native coronary artery without angina pectoris
CPT/HCPCS: 20550; 99214

== ENCOUNTER → 2025-03-25 14:21 | Outpatient (BNVA) | payer OTHER, SELFPAY | PROVIDERS: PCP General Practice; Visit Provider Orthopaedic Surgery | DX: M25.531 Pain in right wrist (principal); M77.8 Other enthesopathies, not elsewhere classified; E11.9 Type 2 diabetes mellitus without complications; J44.89 Other specified chronic obstructive pulmonary disease; I25.10 Atherosclerotic heart disease of native coronary artery without angina pectoris | CPT/HCPCS: 20550; 99212; J1100; J2003 ==

== ENCOUNTER 2025-04-20 11:01 | Outpatient (REF) | payer OTHER, SELFPAY ==
--- OUTSIDE RECORDS SUMMARY | 2025-04-17 14:45 | XMS_ITS | Encounter Summary ---
Author Organization [employer] Address [address] [facility] 7t [place] [address] Care Team Providers Care Oncology Admin Name Role Phone Galina Arrington MD Primary Care Provider [phone] Reason for Visit * Reason Comments Pre-op Exam Encounter Details Date Type Department Care Team ([facility] st Contact Info) Description 04/17/2025 2:45 PM EDT Office Visit [facility] MEDICINE [address] [place], [place] [phone] Galina Arrington MD [address] [place], [place] [phone] Pre-op evaluation (Primary Dx); Primary hypertension; Gastroesophageal reflux disease without esophagitis; Type 2 diabetes mellitus with other specified complication, without long-term current use of insulin ([facility]); Mild intermittent asthma without complication; Overweight (BMI 25.0-29.9); Pulmonary emphysema, unspecified emphysema type ([facility]/HCC) Social History Tobacco Use Types Packs/Day Years [...] Sign Reading Time Taken Comments Blood Pressure 128/80 04/17/2025 3:50 PM EDT Pulse 62 04/17/2025 3:50 PM EDT Temperature 36.6 C (97.8 F) 04/17/2025 3:50 PM EDT Respiratory Rate 20 04/17/2025 3:50 PM EDT Oxygen Saturation - - Inhaled Oxygen Concentration - - Weight 69.2 kg (152 lb 9.6 oz) 04/17/2025 3:50 P M EDT Height 152.4 cm (5') 04/17/2025 3:50 PM EDT Body Mass Index 29.8 04/17/2025 3:50 PM EDT documented in this encounter Progress Notes * Galina Arrington MD - 04/17/2025 2:45 PM EDT SUBJECTIVE: Prisca Spence is a 69 y.o. female who presents for pre-op. Denies recent illness, ER visit, or hospitalization. Acute Concerns: Date of Surgery: 05/12/25 Surgical procedure being done: Face Lift Type of anesthesia: General anesthesia Lab needed: Yes EKG: Yes Surgeon's name: Dr. Chairez Facility name: [facility] Surgeon's office number: [phone] Surgeon's office fax number: [phone] Contact name (person you spoke with): Amy With [facility] plastic surgery Last office note from surgeon requested: Yes Prisca Spence, 69 years Dizziness/Vertigo - Reports experiencing dizziness described as vertigo with episodes occurring sometimes, not every day - No specific triggers identified - No associated symptoms reported - Has used meclizine in the past and states it is helpful for dizziness Diabetes - Previously used Trulicity for diabetes management but discontinued due to concerns about side effects and negative information seen on television - Expressed desire to try a different injectable medication for diabetes - Currently taking metformin and another unspecified medication for diabetes - Last blood test for diabetes was performed approximately 2-3 months ago; results were not communicated to her [facility] - No upper respiratory infection, trouble breathing, trouble sleeping, or trouble walking reported prior to the encounter - Takes omeprazole, montelukast, zolpidem, and a medication for cholesterol 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 Was seenby Dr Muñiz at [facility] and told that it was ok in the end. I cannot find records of this visit, I do see a pelvic US from 2019 that shows thickened endometrial stripe Not sexually active, not bothered by post-menopausal symptoms DM2 On Metformin, Glipizide, and Trulicity 1.5mg Informed patient that her A1C needs to be <9 for elective surgery AIC 9.8, gluc 333 Add ASA 81mg On rosuvastatin 40mg daily Due for foot exam, normal 02/06/25 Due for vision exam, referral placed to [facility] vision HTN On Isorbide 60mg On Olmesartan 5mg Allergies Not active currently On Singulair 10mg daily GERD On Omeprazole 20mg daily, wean if and when possible Lifestyle mgmt Health Maintenance: Pap - 03/2020 NILM/HPV neg; 01/2023 NILM, HPV neg Colon- 05/2024 tubular adenoma; negative for high-grade dysplasia and carcinoma. Impression: 1. Normal colon and terminal ileum mucosa 2. Total of 1 polyp removed 3. External and internal hemorrhoids 4. Diverticulosis - Repeat colonoscopy in 5 years due to quality of the prep. Mammo- July 2024, Birads 2, annual screening Imms- due for zoster, Dtap, COVID STI-declines Patient Active Problem List Diagnosis Date Noted Overweight (BMI 25.0-29.9) 04/20/2025 Primary hypertension 02/08/2025 Right hand pain 12/29/2024 Kidney stones 08/28/2023 Screening for cervical cancer 02/16/2023 Pulmonary emphysema ([facility]) 08/21/2022 Diabetes mellitus ([facility]) 01/07/2021 Multiple joint pain 01/01/2018 Allergic rhinitis 05/26/2015 Alopecia 05/26/2015 Constipation 05/26/2015 Coronary artery disease involving mohegan coronary artery of mohegan heart without angina pectoris 05/26/2015 Gastroesophageal reflux disease without esophagitis 05/26/2015 Hypercholesterolemia 05/26/2015 Vitamin D deficiency 05/26/2015 Surgical History[1] Social History Social History Narrative Not on file Review of Systems Constitutional: Negative. Respiratory: Negative. Cardiovascular: Negative. Gastrointestinal: Negative. Genitourinary: Negative. Musculoskeletal: Negative. OBJECTIVE: Vitals: 04/17/25 1550 BP: 128/80 BP Location: Left arm Patient Position: Sitting BP Cuff Size: Large adult Pulse: 62 Resp: 20 Temp: 97.8 ??F (36.6 ??C) TempSrc: Oral Weight: 152 lb 9.6 oz (69.2 kg) Height: 5' (1.524 m) Physical Exam Vitals and nursing note reviewed. Constitutional: Appearance: Normal appearance. HENT: Head: Normocephalic and atraumatic. Right Ear: Tympanic membrane normal. Left Ear: Tympanic membrane normal. Nose: Nose normal. Mouth/Throat: Mouth: Mucous membranes are moist. Pharynx: Oropharynx is clear. No oropharyngeal exudate or posterior oropharyngeal erythema. Eyes: Extraocular Movements: Extraocular movements intact. Conjunctiva/sclera: Conjunctivae normal. Pupils: Pupils are equal, round, and reactive to light. Cardiovascular: Rate and Rhythm: Normal rate and regular rhythm. Pulses: Normal pulses. Heart sounds: Normal heart sounds. Pulmonary: Effort: Pulmonary effort is normal. Breath sounds: Normal breath sounds. Skin: General: Skin is warm and dry. Neurological: General: No focal deficit present. Mental Status: She is alert and oriented to person, place, and time. Psychiatric: Mood and Affect: Mood normal. Behavior: Behavior normal. ASSESSMENT/PLAN Assessment & Plan Pre-op evaluation: - Pre-operative evaluation for upcoming surgery requested by Dr. Chairez at [facility]. EKG shows normalcardiac function. Pending blood work to assess blood counts, infection markers, renal and hepatic function. Clearance for surgery contingent on results and A1c less than 9. - Ordered blood work for pre-operative clearance. Will send note to surgeon with EKG and lab results if A1c is less than 9. If A1c is not less than 9, surgery will be postponed until glycemic controlis achieved. Primary hypertension: - Continue current antihypertensive regimen as previously prescribed. Gastroesophageal reflux disease without esophagitis: - Continue omeprazole as previously prescribed. Type 2 diabetes mellitus with other specified complication, without long-term current use of insulin ([facility]): - Type 2 diabetes mellitus managed with metformin and Mounjaro. Trulicity discontinued due to patient concern and switched to Mounjaro. Glycemic control required for surgical clearance (A1c less than9). - Continue metformin and Mounjaro. Hold Trulicity the week of surgery. Dietary recommendations provided: increase intake of vegetables and protein to aid glycemic control. Monitor A1c; if less than 9, proceed with surgery. If not, delay surgery and continue to optimize glycemic control. - Risks and side effects: Discussed potential side effects of diabetes medications, including constipation and other secondary effects. Patient expressed concern about Trulicity based on media reports; consented to switch to Mounjaro. Mild intermittent asthma without complication: - Continue montelukast as previously prescribed. Vertigo: - Vertigo present intermittently, not daily. - Prescribed meclizine for symptomatic management. Prescription - Meclizine, for vertigo - Omeprazole - Montelukast - Mounjaro injection, new diabetes therapy; hold Trulicity the week of surgery Problem List Items Addressed This Visit Diabetes mellitus ([facility]) Relevant Medications metFORMIN XR (Glucophage-XR) 500 MG 24 hr tablet Tirzepatide (Mounjaro) 2.5 MG/0.5ML solution auto-injector Gastroesophageal reflux disease without esophagitis Relevant Medications omeprazole (PriLOSEC) [address] fabi Pulmonary emphysema ([facility]) Primary hypertension Relevant Medications isosorbide mononitrate ER (Imdur) 60 MG 24 hr tablet Overweight (BMI 25.0-29.9) Relevant Medications metFORMIN XR (Glucophage-XR) 500 MG 24 hr tablet Tirzepatide (Mounjaro) 2.5 MG/0.5ML solution auto-injector Other Visit Diagnoses Pre-op evaluation - Primary Relevant Orders Comprehensive Metabolic Panel CBC auto differential Hemoglobin A1c Hepatitis C Antibody with Reflex to HCV, RNA, Quantitative, Real-Time PCR Mild intermittent asthma without complication Relevant Medications montelukast (Singulair) 10 MG tablet Follow Up: per recall months or sooner prn Allergies[2] Current Medications[3] Persian Translation: Provided by [facility] staff member FLAVIO Swift This note was drafted using Ambient (AI) technology. The patient/patient's guardian has been informed and has consented to the use of this technology: Yes [1] History reviewed. No pertinent surgical history. [2] Allergies Allergen Reactions Oakley Oil Other reaction(s): hives Loratadine Other reaction(s): nausea: dizziness Peanut (Diagnostic) Other reaction(s): unspecified Penicillins Other reaction(s): unspecified Tramadol Nausea Only [3] Current Outpatient Medications: aspirin 81 MG chewable tablet, Chew 1 tablet (81 mg) Once per day., Disp: 90 tablet, Rfl: 3 Bisacodyl EC 5 MG EC tablet, TAKE 4 TABLETS BY MOUTH AT NOON THE DAY BEFORE COLONOSCOPY, Disp: , Rfl: Blood Glucose Monitoring Suppl (ONE TOUCH ULTRA 2) w/Device kit, Use to monitor blood glucose twicedaily, Disp: 1 kit, Rfl: 0 Blood Pressure kit, 1 each 2 times daily., Disp: 1 kit, Rfl: 0 cholecalciferol (Vitamin D-3) 50 MCG (2000 UT) capsule, Take 1 capsule (50 mcg) by mouth Once per day., Disp: 90 capsule, Rfl: 3 cromolyn (Opticrom) 4 % ophthalmic solution, INSTILL 1 DROP INTO THE AFFECTED EYE FOUR TIMES A DAY IN THE MORNING, AT NOON, IN THE EVENING AND AT BEDTIME NEEDED, Disp: 10 mL, Rfl: 0 cyclobenzaprine (Flexeril) 10 MG tablet, TAKE 1 TABLET BY MOUTH EVERY NIGHT AT BEDTIME NEEDED FOR BACK PAIN, Disp: 30 tablet, Rfl: 3 diphenhydrAMINE (Evelyne-Dryl) 25 MG tablet, TAKE 1 TABLET BY MOUTH AT BEDTIME NEEDED FOR DIZZINESS, Disp: 20 tablet, Rfl: 1 docusate sodium (Colace) 100 MG capsule, TAKE 1 CAPSULE BY MOUTH TWICE DAILY, Disp: 180 capsule, Rfl: 3 DULoxetine (Cymbalta) [address] capsule, TAKE 1 CAPSULE BY MOUTH EVERY DAY FOR PAIN, Disp: 90 capsule, Rfl: 3 EPINEPHrine (Epipen) 0.3 MG/0.3ML injection syringe, INJECT 1 PEN IN THE MUSCLE ONE TIME DIRECTED, Disp: , Rfl: gabapentin (Neurontin) 300 MG capsule, Take 1 capsule (300 mg) by mouth 3 times daily., Disp: 90 capsule, Rfl: 11 glipiZIDE XL (Glucotrol XL) 10 MG 24 hr tablet, Take 1 tablet (10 mg) by mouth Once per day. Do notcrush, chew, or split., Disp: 90 tablet, Rfl: 3 isosorbide mononitrate ER (Imdur) 60 MG 24 hr tablet, Take 1 tablet (60 mg) by mouth Once per day. Do not crush or chew., Disp: 90 tablet, Rfl: 3 ketoconazole (NIZOral) 2 % shampoo, Apply topically 2 (two) times a week., Disp: 120 mL, Rfl: 1 meclizine (Antivert) 25 MG tablet, Take 1 tablet (25 mg) by mouth if needed in the morning, at noon, and at bedtime for dizziness for up to 10 days., Disp: 30 tablet, Rfl: 0 metFORMIN XR (Glucophage-XR) 500 MG 24 hr tablet, TAKE 1 TABLET BY MOUTH EVERY MORNING AND 2 TABLETS EVERY EVENING, Disp: 270 tablet, Rfl: 3 montelukast (Singulair) 10 MG tablet, TAKE 1 TABLET BY MOUTH EVERY DAY IN THE EVENING FOR ALLERGIES, Disp: 90 tablet, Rfl: 3 olmesartan (Benicar) 5 MG tablet, Take 1 tablet (5 mg) by mouth Once per day. For blood pressure and kidney protection, Disp: 90 tablet, Rfl: 3 omeprazole (PriLOSEC) [address] capsule, Take 1 capsule (20 mg) by mouth Once per day., Disp: 90 capsule, Rfl: 3 OneTouch Delica Lancets 33G mis, Use to test blood sugar 2 times daily, Disp: 100 each, Rfl: 11 rosuvastatin (Crestor) 40 MG tablet, TAKE 1 TABLET BY MOUTH EVERY MORNING, Disp: 90 tablet, Rfl: 3 simethicone (Mylicon) 80 MG chewable tablet, CHEW AND SWALLOW 1 TABLET BY MOUTH FOUR TIMES DAILY AFTER MEALS AND BEFORE BEDTIME NEEDED FOR GAS, Disp: 120 tablet, Rfl: 3 Tirzepatide (Mounjaro) 2.5 MG/0.5ML solution auto-injector, Inject 2.5 mg under the skin 1 (one) time per week., Disp: 2 mL, Rfl: 2 documented in this encounter Plan of Treatment Scheduled Orders Name Type Priority Associated Diagnoses Orde r Schedule Comprehensive Metabolic Panel Lab Routine Pre-op evaluation Expected: 04/17/2025 (Approximate), Expires: 04/17/2026 CBC auto differential Lab Routine Pre-op evaluation Expected: 04/17/2025 (Approximate), Expires: 04/17/2026 Hemoglobin A1c Lab Routine Pre-op evaluation Expected: 04/17/2025 (Approximate), Expires: 04/17/2026 Hepatitis C Antibody with Reflex to HCV, RNA, Quantitative, Real-Time PCR Lab Routine Pre-op evaluation Expected: 04/17/2025, Expires: 04/17/2026 documented as of this encounter Visit Diagnoses Diagnosis Pre-op evaluation- Primary Primary hypertension Unspecified essential hypertension Gastroesophageal reflux disease without esophagitis Esophageal reflux Type 2 diabetes mellitus with other specified complication, without long-term current use of insulin (HCC) Mild intermittent asthma without complication Overweight (BMI 25.0-29.9) Overweight Pulmonary emphysema, unspecified emphysema type documented in this encounter Additional Health Concerns Assessment Noted Time PHQ-9 Depression Total Score: 0 02/07/20 25 4:18 PM EDT documented as of this encounter Care Teams Oncology Admin Relationship Specialty Start Date End Date Galina Arrington MD [address] [place] [address] PCP - General Family Medicine 08/31/20 documented as of this encounter
--- OUTSIDE RECORDS SUMMARY | 2025-04-20 12:30 | XMS_ITS | Encounter Summary ---
Author Organization [employer] Address [address] [facility] 7t [place] [address] Care Team Providers Care Food Technician Name Role Phone Galina Arrington MD Primary Care Provider [phone] Encounter Details Date Type Department Care Team (Late st Contact Info) Description 11/28/2022 Orders Only [facility] MEDICINE [address] [place] [phone] Treva Ingram MD [address] [place], [place] [phone] Social History Tobacco Use Types Packs/Day Years [...] on filedocumented in this encounter Care Teams Food Technician Relationship Specialty Start Date End Date Galina Arrington MD [address] [place], [place] [phone] PCP - General Family Medicine 08/31/20 documented as of this encounter
--- OUTSIDE RECORDS SUMMARY | 2025-04-20 12:30 | XMS_ITS | Encounter Summary ---
Author Organization [employer] Address 75 [facility] 7t [place] [address] Care Team Providers Care Disc Ruler Operator Name Role Phone Galina Arrington MD Primary Care Provider Reason for Visit * Reason Onset Date Comments chart prep 04/15/2025 Encounter Details Date Type Department Care Team ([facility] st Contact Info) Description 04/15/2025 Telephone [facility] MEDICINE [address] [place], [place] [phone] Galina Arrington MD [address] [place], [place] [phone] chart prep Social History Tobacco Use Types Packs/Day Years [...] encounter Miscellaneous Notes * Telephone Encounter - Jeniffer Urbano MA - 04/15/2025 11:25 AM EDT Chart Prep Labs: done Images: done Referrals: complete Vaccines due: Covid, Flu, RSV, Zoster, and DTAP Screenings: eye exam Overdue care gaps: Glucose, PHQ-9, and TYRA-7 documented in this encounter Plan of Treatment Not on file documented as of this encounter Visit Diagnoses Not on filedocumented in this encounter Additional Health Concerns Assessment Noted Time PHQ-9 Depression Total Score: 0 02/07/20 25 4:18 PM EDT documented as of this encounter Care Teams Disc Ruler Operator Relationship Specialty Start Date End Date Galina Arrington MD [address] [place] [phone] PCP - General Family Medicine 08/31/20 documented as of this encounter
--- OUTSIDE RECORDS SUMMARY | 2025-04-20 12:30 | XMS_ITS | Encounter Summary ---
Author Organization [employer] Address [address] [facility] 7t [place] [address] Care Team Providers Care Sand Mill Operator Facing Sand Name Role Phone Galina Arrington MD Primary Care Provider [phone] Reason for Visit * Reason Comments Med Refill Encounter Details Date Type Department Care Team ([facility] st Contact Info) Description 01/15/2024 Refill [facility] MEDICINE [address] [place], [place] [phone] Galina Arrington MD [address] [place], [place] [phone] Gastroesophageal reflux disease without esophagitis Social History [...] reflux documented in this encounter Care Teams Sand Mill Operator Facing Sand Relationship Specialty Start Date End Date Galina Arrington MD [address] [place] [address] PCP - General Family Medicine 08/31/20 documented as of this encounter
--- OUTSIDE RECORDS SUMMARY | 2025-04-20 12:30 | XMS_ITS | Encounter Summary ---
Author Organization [email or web address] Address [address] [facility] 7t [place] [address] Care Team Providers Care Woodworker Name Role Phone Galina Arrington MD Primary Care Provider [phone] Encounter Details Date Type Department Care Team (Late st Contact Info) Description 08/06/2024 Telephone [facility] MEDICINE [address] [place], [place] [phone] Galina Arrington MD [address] [place], [place] [phone] Social History Tobacco Use Types Packs/Day Years [...] on filedocumented in this encounter Care Teams Woodworker Relationship Specialty Start Date End Date Galina Arrington MD [address] [place] [phone] PCP - General Family Medicine 08/31/20 documented as of this encounter
--- OUTSIDE RECORDS SUMMARY | 2025-04-20 12:30 | XMS_ITS | Encounter Summary ---
Author Organization [employer] Address [address] [facility] 7t [place] [address] Care Team Providers Care Photographic Reproduction Technician Name Role Phone Galina Arrington MD Primary Care Provider [phone] Reason for Visit * Reason Onset Date Comments Referral 01/01/2025 Encounter Details Date Type Department Care Team ([facility] st Contact Info) Description 01/01/2025 Telephone [facility] MEDICINE [address] [place], [place] [phone] Galina Arrington MD [address] [place], [place] [phone] Referral Social History Tobacco Use Types Packs/Day [...] 1:14 PM EDT TC placed to patient [phone] in regards to below message. Patient would like to be referred tocardiology (patient has been established with [facility] cardiology in the past however has not seen them in a while). Patient was seeing [facility] cardiology r/t CAD s/p cardiac catheterization . Please review and advise if agreeable to place referral to [facility] cardiology to re- establish care. * Telephone Encounter - Sung Ma - 01/01/2025 3:34 PM EDT Tc from patient requesting a referral to see a electromechanical assembly technician. Patient reports that it has been several years since last evaluation and mentions having a mallita (possible stent). documented in this encounter Plan of Treatment Not on file documented as of this encounter Visit Diagnoses Not on filedocumented in this encounter Care Teams Photographic Reproduction Technician Relationship Specialty Start Date End Date Galina Arrington MD [address] [place] [phone] PCP - General Family Medicine 08/31/20 documented as of this encounter
--- OUTSIDE RECORDS SUMMARY | 2025-04-20 12:30 | XMS_ITS | Encounter Summary ---
Author Organization [employer] Address [address] [facility] 7t [place] [address] Care Team Providers Care Explosive Ordnance Disposal Manager Name Role Phone Galina Arrington MD Primary Care Provider [phone] Reason for Referral * Consultation (Routine) - Closed Specialty Diagnoses / Procedures Referred By Contac t Referred To Contact Cardiology Diagnoses Coronary artery disease involving tyonek coronary artery of tyonek heart without angina pectoris Galina Arrington MD [address] [place] [address] Phone: tel: fax: [facility] Cardiology [address] [place], [place] Phone: tel: fax: Referral ID Status Reason Start Date Expiration Date V isits Requested Visits Authorized [id number] Closed Specialty Services Required 01/05/2025 01/05/2026 1 1 Encounter Details Date Type Department Care Team (Late st Contact Info) Description 01/05/2025 Orders Only [facility] MEDICINE [address] [place], [place] [phone] Galina Arrington MD [address] [place], [place] [phone] Coronary artery disease involving tyonek coronary artery of tyonek heart without angina pectoris (Primary Dx) Social [...] Outpatient Referral Routine Coronary artery disease involving tyonek coronary artery of tyonek heart without angina pectoris Expected: 01/05/2025 (Approximate), Expires: 01/05/2026 documented as of this encounter Visit Diagnoses Diagnosis Coronary artery disease involving tyonek coronary artery of tyonek heart without angina pectoris- Primary documented in this encounter Care Teams Explosive Ordnance Disposal Manager Relationship Specialty Start Date End Date Galina Arrington MD [address] [place] [address] PCP - General Family Medicine 08/31/20 documented as of this encounter
--- OUTSIDE RECORDS SUMMARY | 2025-04-20 12:30 | XMS_ITS | Encounter Summary ---
Author Organization [employer] Address 75 [facility] 7t [place] [address] Care Team Providers Care Event Executive Name Role Phone Galina Arrington MD Primary Care Provider [phone] Encounter Details Date Type Department Care Team (Late st Contact Info) Description 03/30/2025 Orders Only [facility] MEDICINE [address] [place], [place] [phone] Treva Ingram MD [address] [place], [place] [phone] Social History Tobacco Use Types Packs/Day Years [...] documented as of this encounter Care Teams Event Executive Relationship Specialty Start Date End Date Galina Arrington MD [address] [place] [id number] PCP - General Family Medicine 08/31/20 documented as of this encounter
--- OUTSIDE RECORDS SUMMARY | 2025-04-20 12:30 | XMS_ITS | Encounter Summary ---
Author Organization [employer] Address [address] [facility] 7t [place] [address] Care Team Providers Care Vehicle Fuel Systems Converter Name Role Phone Galina Arrington MD Primary Care Provider [phone] Encounter Details Date Type Department Care Team (Late st Contact Info) Description 01/30/2024 Telephone [facility] MEDICINE [address] [place], [place] [phone] Galina Arrington MD 230 [place], [place] [phone] Social History Tobacco Use Types Packs/Day Years [...] pt stating they've been receiving call but securities underwriter doesn't see anything documented. documented in this encounter Plan of Treatment Not on file documented as of this encounter Visit Diagnoses Not on filedocumented in this encounter Care Teams Vehicle Fuel Systems Converter Relationship Specialty Start Date End Date Galina Arrington MD [address] [place] [id number] PCP - General Family Medicine 08/31/20 documented as of this encounter
--- OUTSIDE RECORDS SUMMARY | 2025-04-20 12:30 | XMS_ITS | Encounter Summary ---
Author Organization [employer] Address [address] [facility] 7t [place] [address] Care Team Providers Care Storage And Backup Administrator Name Role Phone Galina Arrington MD Primary Care Provider [phone] Encounter Details Date Type Department Care Team (Latest Contact Info) Description 04/17/2025 Travel Social History Tobacco Use Types Packs/Day [...] documented as of this encounter Care Teams Storage And Backup Administrator Relationship Specialty Start Date End Date Galina Arrington MD [address] [place] [address] PCP - General Family Medicine 08/31/20 documented as of this encounter
--- OUTSIDE RECORDS SUMMARY | 2025-04-20 12:30 | XMS_ITS | Encounter Summary ---
Author Organization [employer] Address [address] [facility] 7t [place] [address] Care Team Providers Care Sustainable Design Coordinator Name Role Phone Galina Arrington MD Primary Care Provider [phone] Reason for Visit * Reason Comments Med Refill Encounter Details Date Type Department Care Team ([facility] st Contact Info) Description 08/25/[address] [facility] MEDICINE [address] [place], [place] [phone] Galina Arrington MD 230 [place], [place] [phone] Oral lesion Social History Tobacco Use Types [...] tissues documented in this encounter Care Teams Sustainable Design Coordinator Relationship Specialty Start Date End Date Galina Arrington MD [address] [place] [address] PCP - General Family Medicine 08/31/20 documented as of this encounter
--- OUTSIDE RECORDS SUMMARY | 2025-04-20 12:30 | XMS_ITS | Encounter Summary ---
Author Organization [employer] Address [address] [facility] 7t [place] [address] Care Team Providers Care Baling Machine Operator Name Role Phone Galina Arrington MD Primary Care Provider [phone] Encounter Details Date Type Department Care Team (Late st Contact Info) Description 07/04/2022 Orders Only [facility] [address] [place], [place] [phone] Maritza Garcia LPN Social History Tobacco Use [...] on filedocumented in this encounter Care Teams Baling Machine Operator Relationship Specialty Start Date End Date Galina Arrington MD [address] [place], [place] [phone] PCP - General Family Medicine 08/31/20 documented as of this encounter
--- OUTSIDE RECORDS SUMMARY | 2025-04-20 12:30 | XMS_ITS | Encounter Summary ---
Author Organization [employer] Address [address] [facility] 7t [place] [address] Care Team Providers Care Wood And Wood Products Labourer Name Role Phone Galina Arrington MD Primary Care Provider [phone] Reason for Visit * Reason Onset Date Comments Created in Error 04/03/2024 Encounter Details Date Type Department Care Team ([facility] st Contact Info) Description 04/03/2024 Telephone [facility] MEDICINE 230 [place], [place] [phone] Galina Arrington MD [address] [place], [place] [phone] Created in Error Social History Tobacco Use [...] on filedocumented in this encounter Care Teams Wood And Wood Products Labourer Relationship Specialty Start Date End Date Galina Arrington MD [address] [place] [address] PCP - General Family Medicine 08/31/20 documented as of this encounter
--- OUTSIDE RECORDS SUMMARY | 2025-04-20 12:30 | XMS_ITS | Clinical Summary ---
Author Organization [facility] Address [address] [place] [address] Phone Care Team Providers Care Lather Apprentice Name Role Phone Unavailable Primary Care Provider [...] Description 05/12/2025 7:30 AM EDT Hospital Encounter [facility] OR [address] [place] [phone] Love Chairez MD [address] [place] [phone] 05/12/2025 7:30 AM EDT - 05/12/2025 1:00 PM EDT Surgery [address] [id number] Love Chairez MD [address] [place] [id number] FACELIFT [[id number] (CPT )] Scheduled Procedures Name Priority Associated Diagnoses Date/Ti me FACELIFT Encounter for cosmetic surgery 05/12/2025 7:30 AM EDT Health Maintenance Due Date Last Done Comments Breast Cancer Screening 1955 DTaP,Tdap,and Td Vaccines (1 - Tdap) 1976 Pneumococcal Vaccine: 50+ Ye ars (1 of 1 - PCV) 10/12/2007 Zoster Vaccines (1 of 2) 10/12/2007 Depression Screening 07/23/2024 COVID-19 Vaccine (2023-2 5 season) 2025 Influenza Vaccine (#1) 2025 RSV Immunization Adult [...] on patient's age to complete this topic Goals Goal Patient Goal Type Associated Problems Recent Progress Patient-Stated? Author Autogenerat ed Goal Care Plan Autogenerated Problem No Kiel Cortez Additional Health Concerns Active Problems Noted Date Diagnosed Date Autogenerated Problem 04/20/2025
--- OUTSIDE RECORDS SUMMARY | 2025-04-20 12:30 | XMS_ITS | Encounter Summary ---
Author Organization [employer] Address [address] [facility] 7t [place] [address] Care Team Providers Care Project Manager Retail Name Role Phone Galina Arrington MD Primary Care Provider Reason for Visit * Reason Onset Date Comments No Show 12/22/2022 Encounter Details Date Type Department Care Team ([facility] st Contact Info) Description 12/22/2022 Telephone [facility] MEDICINE 230 [place], [place] [phone] Galina Arrington MD [address] [place], [place] [phone] No Show Social History Tobacco Use Types [...] on 01/01/2023. * Telephone Encounter - Naziakyara Rufino Yeung - 12/22/2022 10:56 AM EDT Tc from pt requesting to r/s appt for 12/22/2022 for a PAP Exam Please contact pt at [phone] Finnish Speaker documented in this encounter Plan of Treatment Not on file documented as of this encounter Visit Diagnoses Not on filedocumented in this encounter Care Teams Project Manager Retail Relationship Specialty Start Date End Date Galina Arrington MD [address] [place] [phone] PCP - General Family Medicine 08/31/20 documented as of this encounter
--- OUTSIDE RECORDS SUMMARY | 2025-04-20 12:30 | XMS_ITS | Encounter Summary ---
Author Organization [employer] Address [address] [facility] 7t [place] [address] Care Team Providers Care Treasury Accountant Name Role Phone Galina Arrington MD Primary Care Provider [phone] Reason for Visit * Reason Onset Date Comments Med Refill 04/15/2025 Encounter Details Date Type Department Care Team ([facility] st Contact Info) Description 04/15/2025 Telephone [facility] MEDICINE 230 [place], [place] [phone] Galina Arrington MD [address] [place], [place] [phone] Med Refill Social History Tobacco Use Types Packs/Day Years [...] encounter Miscellaneous Notes * Telephone Encounter - Mari Leal LPN - 04/15/2025 4:05 PM EDT Medications requested have refills. * Telephone Encounter - Roni Lazar - 04/15/2025 3:57 PM EDT TC from pt requesting medication refill. Medications needing refill : montelukast (Singulair) 10 MG tablet rosuvastatin (Crestor) 40 MG tablet To be sent to: [id number] - [address] AT [facility] documented in this encounter Plan of Treatment Not on file documented as of this encounter Visit Diagnoses Not on filedocumented in this encounter Additional Health Concerns Assessment Noted Time PHQ-9 Depression Total Score: 0 02/07/20 25 4:18 PM EDT documented as of this encounter Care Teams Treasury Accountant Relationship Specialty Start Date End Date Galina Arrington MD [address] [place] [address] PCP - General Family Medicine 08/31/20 documented as of this encounter
--- OUTSIDE RECORDS SUMMARY | 2025-04-20 12:30 | XMS_ITS | Encounter Summary ---
Author Organization [employer] Address [address] [facility] 7t [place] [address] Care Team Providers Care Tray Server Name Role Phone Galina Arrington MD Primary Care Provider [phone] Encounter Details Date Type Department Care Team (Late st Contact Info) Description 09/17/2023 Telephone [facility] MEDICINE 230 [place], [place] [phone] Galina Arrington MD 230 [place], [place] [phone] Social History Tobacco Use Types Packs/Day Years [...] on filedocumented in this encounter Care Teams Tray Server Relationship Specialty Start Date End Date Galina Arrington MD [address] [place] [address] PCP - General Family Medicine 08/31/20 documented as of this encounter
--- OUTSIDE RECORDS SUMMARY | 2025-04-20 12:30 | XMS_ITS | Encounter Summary ---
Author Organization [employer] Address [address] [facility] 7t [place] [address] Care Team Providers Care Stove Refinisher Name Role Phone Galina Arrington MD Primary Care Provider [phone] Encounter Details Date Type Department Care Team (Late st Contact Info) Description 01/11/2024 Orders Only [facility] MEDICINE [address] [place], [place] [phone] Galina Arrington MD [address] [place], [place] [phone] Social History Tobacco Use Types Packs/Day Years [...] on filedocumented in this encounter Care Teams Stove Refinisher Relationship Specialty Start Date End Date Galina Arrington MD [address] [place] [address] PCP - General Family Medicine 08/31/20 documented as of this encounter
--- OUTSIDE RECORDS SUMMARY | 2025-04-20 12:30 | XMS_ITS | Encounter Summary ---
Author Organization [employer] Address [address] [facility] 7t [place] [address] Care Team Providers Care Electronic Induction Hardener Name Role Phone Galina Arrington MD Primary Care Provider Encounter Details Date Type Department Care Team (Late st Contact Info) Description 08/13/2023 Orders Only [facility] MEDICINE 230 [place], [place] [phone] Galina Arrington MD [address] [place], [place] [phone] Screening for colon cancer (Primary Dx) Social [...] colon documented in this encounter Care Teams Electronic Induction Hardener Relationship Specialty Start Date End Date Galina Arrington MD [address] [place] [address] PCP - General Family Medicine 08/31/20 documented as of this encounter
--- OUTSIDE RECORDS SUMMARY | 2025-04-20 12:30 | XMS_ITS | Encounter Summary ---
Author Organization [employer] [facility] Address [address] [facility] 7t [place] [address] Care Team Providers Care Fitter / Welder Name Role Phone Galina Arrington MD Primary Care Provider [phone] Reason for Visit * Reason Comments Med Refill Encounter Details Date Type Department Care Team ([facility] st Contact Info) Description 12/19/2022 Refill [facility] MEDICINE 230 [place], [place] [phone] Galina Arrington MD [address] [place], [place] [phone] Type 2 diabetes mellitus with other specified complication, without long-term current use of insulin ([facility]/HCC) Social History Tobacco Use Types Packs/Day Years [...] complication, without long-term current use of insulin ([facility]) documented in this encounter Care Teams Fitter / Welder Relationship Specialty Start Date End Date Galina Arrington MD [address] [place] [address] PCP - General Family Medicine 08/31/20 documented as of this encounter
--- OUTSIDE RECORDS SUMMARY | 2025-04-20 12:30 | XMS_ITS | Encounter Summary ---
Author Organization [employer] Address [address] [facility] 7t [place] [address] Care Team Providers Care Cold Header Operator Name Role Phone Galina Arrington MD Primary Care Provider [phone] Encounter Details Date Type Department Care Team (Late st Contact Info) Description 03/21/2023 Orders Only [facility] MEDICINE [address] [place], [place] [phone] Galina Arrington MD [address] [place], [place] [phone] Social History Tobacco Use Types Packs/Day Years [...] on filedocumented in this encounter Care Teams Cold Header Operator Relationship Specialty Start Date End Date Galina Arrington MD [address] [place], [place] [phone] PCP - General Family Medicine 08/31/20 documented as of this encounter
--- OUTSIDE RECORDS SUMMARY | 2025-04-20 12:30 | XMS_ITS | Clinical Summary ---
Author Organization [employer] Address [address] [facility] 7t [place] [address] Care Team Providers Care Paste Worker Name Role Phone Galina Arrington MD Primary Care Provider [phone] Allergies Active Allergy Reactions Criticality Noted Date Comments [place] Oil 01/15/2017 Other reaction(s): hives Loratadine 10/18/2010 Other reaction(s): nausea: dizziness Peanut (Diagnostic) 10/18/2010 Other reaction(s): unspecified Penicillins 10/18/2010 Other reaction(s): unspecified Tramadol Nausea Only 10/18/2010 Medications EPINEPHrine (Epipen) 0.3 MG/0.3ML injection syringe INJECT 1 PEN IN THE MUSCLE ONE TIME DIRECTED 05/27/20 22 Active Blood Glucose Monitoring Suppl (ONE TOUCH ULTRA 2) w/Device kitIndications: Type 2 diabetes mellitus with other specified complication, without long-term current use of insulin ([facility]) Use to monitor blood glucose twice daily 1 kit 01/08/20 24 Active OneTouch Delica Lancets 33G miscIndications :Type 2 diabetes mellitus with other specified complication, without long-term current use of insulin ([facility]) Use to test blood sugar 2 times daily 100 each 11 01/16/20 24 Active Bisacodyl EC 5 MG EC tablet TAKE 4 TABLETS BY MOUTH AT NOON THE DAY BEFORE COLONOSCOPY 05/30/20 24 Active gabapentin (Neurontin) 300 MG capsuleIndicati ons:Type 2 diabetes mellitus with other specified complication, without long-term current use of insulin ([facility]),Multiple joint pain Take 1 capsule (300 mg) by mouth 3 times daily. 90 capsule 07/29/192025 Active aspirin 81 MG chewable tabletIndicatio ns:Type 2 diabetes mellitus with other specified complication, without long-term current use of insulin ([facility]) Chew 1 tablet (81 mg) Once per day. 90 tablet 3 07/29/19 25 2025 Active docusate sodium (Colace) 100 MG capsuleIndicati ons:Constipatio n, unspecified constipation type TAKE 1 CAPSULE BY MOUTH TWICE DAILY 180 capsule 3 11/01/19 25 Active rosuvastatin (Crestor) 40 MG tablet [...] 2 times daily. 1 kit 01/16/20 25 2025 Active simethicone (Mylicon) 80 MG chewable tablet CHEW AND SWALLOW 1 TABLET BY MOUTH FOUR TIMES DAILY AFTER MEALS AND BEFORE BEDTIME NEEDED FOR GAS 120 tablet 3 02/03/20 25 Active olmesartan (Benicar) 5 MG tabletIndicatio ns:Type 2 diabetes mellitus with other specified complication, without long-term current use of insulin ([facility]),Primary hypertension Take 1 tablet (5 mg) by mouth Once per day. For blood pressure and kidney protection 90 tablet 3 02/09/20 25 2025 Active glipiZIDE XL (Glucotrol XL) 10 MG 24 hr tabletIndicatio ns:Type 2 diabetes mellitus with other specified complication, without long-term current use of insulin ([facility]) Take 1 tablet (10 mg) by mouth Once per day. Do not crush, chew, or split. 90 tablet 3 02/09/20 25 2025 Active cyclobenzaprine (Flexeril) 10 MG tablet TAKE 1 TABLET BY MOUTH EVERY NIGHT AT BEDTIME NEEDED FOR BACK PAIN 30 tablet 3 03/02/20 25 Active diphenhydrAMINE (Evelyne-Dryl) 25 MG tabletIndicatio ns:Oral lesion TAKE 1 TABLET BY MOUTH AT BEDTIME NEEDED FOR DIZZINESS 20 tablet 1 03/30/20 25 Active cholecalciferol (Vitamin D-3) 50 MCG (1999) capsule Take 1 capsule (50 mcg) by mouth Once per day. 90 capsule 3 03/30/20 25 Active meclizine (Antivert) 25 MG tablet Take 1 tablet (25 mg) by mouth if needed in the morning, at noon, and at bedtime for dizziness for up to 10 days. 30 tablet 04/17/20 25 2024 Active isosorbide mononitrate ER (Imdur) 60 MG 24 hr tabletIndicatio ns:Primary hypertension Take 1 tablet (60 mg) by mouth Once per day. Do not crush or chew. 90 tablet 3 04/17/20 25 Active omeprazole (PriLOSEC) [address] capsuleIndicati ons:Gastroesoph ageal reflux disease without esophagitis Take 1 capsule (20 mg) by mouth Once per day. 90 capsule 3 04/17/20 25 Active metFORMIN XR (Glucophage-XR) 500 MG 24 hr tabletIndicatio ns:Type 2 diabetes mellitus with other specified complication, without long-term current use of insulin (HCC) TAKE 1 TABLET BY MOUTH EVERY MORNING AND 2 TABLETS EVERY EVENING 270 tablet 3 04/17/20 25 Active montelukast (Singulair) 10 MG tabletIndicatio ns:Mild intermittent asthma without complication TAKE 1 TABLET BY MOUTH EVERY DAY IN THE EVENING FOR ALLERGIES 90 tablet 3 04/17/20 25 Active Tirzepatide (Mounjaro) 2.5 MG/0.5ML solution auto-injector Inject 2.5 mg under the skin 1 (one) time per week. 2 mL 2 04/17/20 25 Active cholecalciferol 50 MCG (1999) capsule Take 1 capsule (50 mcg) by mouth in the morning. 90 capsule 3 10/04/19 24 2024 Discontinued(R eorder (will not trigger notification to Pharmacy)) montelukast (Singulair) 10 MG tabletIndicatio ns:Mild intermittent asthma without complication TAKE 1 TABLET BY MOUTH EVERY DAY IN THE EVENING FOR ALLERGIES 90 tablet 3 08/20/192024 Discontinued(R eorder (will not trigger notification to Pharmacy)) omeprazole (PriLOSEC) [address] capsuleIndicati ons:Gastroesoph ageal reflux disease without esophagitis TAKE 1 CAPSULE BY MOUTH EVERY DAY 90 capsule 3 11/04/19 25 2024 Discontinued(R eorder (will not trigger notification to Pharmacy)) isosorbide mononitrate ER (Imdur) 60 MG 24 hr tabletIndicatio ns:Primary hypertension take 1 tablet by mouth every morning as directed 12/24/19 25 2024 Discontinued(R eorder (will not trigger notification to Pharmacy)) metFORMIN XR (Glucophage-XR) 500 MG 24 hr tabletIndicatio ns:Type 2 diabetes mellitus with other specified complication, without long-term current use of insulin (HCC) TAKE 1 TABLET BY MOUTH EVERY MORNING AND 2 TABLETS EVERY EVENING 270 tablet 3 02/07/20 25 2024 Discontinued(R eorder (will not trigger notification to Pharmacy)) Dulaglutide (Trulicity) 1.5 MG/0.5ML solution auto-injectorIn dications:Type 2 diabetes mellitus with other specified complication, without long-term current use of insulin (HCC) Inject 1.5 mg under the skin 1 (one) time per week. 2 mL 3 02/07/20 25 2024 Discontinued(I neffective) diphenhydrAMINE (Evelyne-Dryl) 25 MG tabletIndicatio ns:Oral lesion TAKE 1 TABLET BY MOUTH AT BEDTIME NEEDED FOR DIZZINESS 20 tablet 1 03/13/20 25 2024 Discontinued(R eorder (will not trigger notification to Pharmacy)) Active Problems Problem Noted Date Diagnosed Date Overweight (BMI 25.0-29.9) 04/20/2025 Primary hypertension 02/08/2025 Assessment & Plan (02/08/2025 [...] prescriptions without first consulting health care provider Right hand pain 12/29/2024 Assessment & Plan [...] Exam: Normal today Eye Exam: Referral to [facility] vision palced Statin: Yes ASA: Yes ERICK/ARB: [...] Constipation 05/26/2015 Coronary artery disease invo [place]ving [place] coronary artery of [place] heart without angina pectoris 05/26/2015 Gastroesophageal reflux disease without esophagi tis 05/26/2015 Hypercholesterolemia 05/26/2015 Vitamin D deficiency 05/26/2015 Resolved Problems Problem Noted Date Diagnosed Date Resolved Date Class 1 obesity 02/06/2025 04/20/2025 Vaginal itching 11/24/2022 02/06/2025 Assessment & Plan [...] Encounters Date Type Department Care Team Description 04/17/2025 2:45 PM EDT Office Visit [facility] MEDICINE [address] [place] [phone] Galina Arrington MD Pre-op evaluation (Primary Dx); Primary hypertension; Gastroesophageal reflux disease without esophagitis; Type 2 diabetes mellitus with other specified complication, without long-term current use of insulin ([facility]); Mild intermittent asthma without complication; Overweight (BMI 25.0-29.9); Pulmonary emphysema, unspecified emphysema type (CMS/HCC) 04/17/2025 Travel 04/15/2025 Telephone [facility] MEDICINE [address] [place] [phone] Galina Arrington MD Med Refill 04/15/2025 Telephone [facility] MEDICINE [address] [place] [phone] Galina Arrington MD chart prep 03/30/2025 Orders Only [facility] MEDICINE [address] [place] [phone] Treva Ingram MD 03/27/[address] [address] Galina Arrington MD telephone call 03/12/2025 Refill [facility] MEDICINE [address] [place] [phone] Galina Arrington MD Oral lesion 02/28/2025 Refill [facility] MEDICINE [address] [place] [phone] Galina Arrington MD 02/26/2025 Orders Only [facility] External Provider, [facility] 02/12/[address] [address] Galina Arrington MD preop 02/06/2025 4:00 PM EDT Office Visit [address] [address] Galina Arrington MD Type 2 diabetes mellitus with other specified complication, without long-term current use of insulin ([facility]) (Primary Dx); Kidney stones; Primary hypertension 02/06/2025 Travel 02/05/[address] [address] Galina Arrington MD Chart Prep 01/31/2025 Refill [facility] MEDICINE [address] [place] [phone] Galina Arrington MD 01/22/2025 Telephone [facility] MEDICINE [address] [place] [phone] Lucy Adame MD Prior Authorization 01/22/2025 Results Follow-Up [address] [address] Lucy Adame MD XR Wrist 3+ Views Right from Last 3 Months Immunizations Immunization Administration [...] housing situation today? I have tiffanie dangelo 07/22/[address] you li [...] 20 04/17/2025 3:50 PM EDT Oxygen Saturation 98% 01/15/2025 3:36 PM EDT Inhaled Oxygen Concentration - - Weight 69.2 kg (152 lb 9.6 oz) 04/17/2025 3:50 P M EDT Height 152.4 cm (5') 04/17/2025 3:50 PM EDT Body Mass Index 29.8 04/17/2025 3:50 PM EDT Plan of Treatment Health Maintenance Due Date [...] 01/19/2024 01/17/2023, 04/19 COVID-19 Vaccine ( season) 2025 07/10/2022, 07/18/2021, 01/05/2021, Additional history exists Influenza [...] 02/06/2026 02/06/2025 Depression Screening 02/06/2026 02/06/2025, 02/07/20 25 Diabetes: Foot Exam 02/06/2026 02/06/2025 Tobacco Screening 04/17/2026 04/17/2025 Colonoscopy 05/23/2029 10/26/2015, 10/26/2015 Colorectal Cancer Screening [...] 01/22/2025 2:37 PM EDT Right wrist pain BI MAMMOGRAM [...] Routine 01/17/2023 2:30 PM EDT Defective dental sikhism COMPREHENSIVE ORAL EVALUATION - NEW OR ESTABLISHED PATIENT Routine 01/17/2023 2:30 PM EDT Defective dental sikhism HM COLONOSCOPY Routine 10/26/2015 9:21 AM EDT from Last 3 Months or Most Recently Relevant to Health Maintenance Results * MR Wrist w/o Contrast Right (02/28/2025 9:02 AM EDT) Anatomical Region Laterality Modality Upper Extremities, Wrist Right Magneti c Resonance 02/28/2025 9:02 AM EDT Narrative 02/28/2025 9:03 AM EDT [address] [address] Magnetic Resonance Report Signed Patient: Prisca Spence MR#: [id number] : 1955 Acct:[id number] Age/Sex: 69 / F ADM Date: 02/26/25 Loc: HO.MRI Attending Dr: Sejal Jin MD Ordering Physician: Sejal Jin MD Date of Service: 02/26/25 Procedure(s): MR wrist RT wo con Accession Number(s): [id number] cc: Galina Arrington; Sejal Jin MD CLINICAL [...] in OV> 02/28/25902 DD/ 1 TD/TT: 02/28/25901 Feather Mixer: Procedure Note Yuniormomoannabellater, Image - 02/28/2025 [place] [address] Magnetic Resonance Report Signed Patient: Britney Spence#: [id number] : 8Acct:[id number] Age/Sex: 69 / FADM Date: 02/26/25 Loc: HO.MRI Attending Dr: Sejal Jin MD Ordering Physician: Sejal Jin MD Date of Service: 02/26/25 Procedure(s): MR wrist RT wo con Accession Number(s): [id number] cc: Galina Arrington; Sejal Jin MD CLINICAL [...] in OV> 02/28/25902 DD/ 1 TD/TT: 02/28/25901 Feather Mixer: [facility] External Provider IMG MRI PROCEDURES Final [...] 3+ Views Right (01/22/2025 2:37 PM EDT) Anatomical Region Laterality Modality Upper Extremities, Wrist Right Radiogr aphic Imaging 01/22/2025 2:37 PM EDT Narrative 01/22/2025 4:13 PM EDT [address] [address] XRay Report Signed Patient: Prisca Spence MR#: [id number] : 1955 Acct:[id number] Age/Sex: 69 / F ADM Date: 01/22/25 Loc: HO.HHCX Attending Dr: Mallika Rehman Ordering Physician: Mallika Rehman Date of Service: 01/22/25 Procedure(s): XR wrist RT min 3V Accession Number(s): [id number] cc: Ramón Rehman Sophia EXAMINATION: XR WRIST, RIGHT CLINICAL INFORMATION: pain [...] Sergio Mena MD 01/22/2025 04:10 PM EDT RP Dictated By: Sergio Mena MD Signed By: <Electronically signed by Sergio Mena MD in OV> 01/22/25 1610 DD/ 1437 TD/TT: 01/22/25 1500 Feather Mixer: Procedure Note Donotuseinterpreter, Image - 01/22/[address] [address] XRay Report Signed Patient: Britney Spence#: [id number] : 8Acct:[id number] Age/Sex: 69 / FADM Date: 01/22/25 Loc: HO.HHCX Attending Dr: Mallika Rehman Ordering Physician: Mallika Rehman Date of Service: 01/22/25 Procedure(s): XR wrist RT min 3V Accession Number(s): [id number] cc: Mallika Rehman; Galina Arrington EXAMINATION: XR [...] Sergio Mena MD 01/22/2025 04:10 PM EDT RP Dictated By: Sergio Mena MD Signed By: <Electronically signed by Sergio Mena MD in OV> 01/22/25 1610 DD/ 1437 TD/TT: 01/22/25 1500 Feather Mixer: Mallika Rehman NP IMG XR PROCEDURES Edited Result - Final * BI Mammogram Screening Tomosynthesis Bilateral (08/13/2024 2:45 PM EST) Anatomical Region Laterality Modality Breast Bilateral Mammography 08/13/2024 2:45 PM EST Narrative 08/22/2024 12:16 PM EST [address] [place], [place] [address] Mammography Report Signed Patient: Prisca Spence MR#: [id number] : 1955 Acct:[id number] Age/Sex: 68 / F ADM Date: 08/13/24 Loc: HO.MAMMO Attending Dr: Galina Arrington MD Ordering Physician: Galina Arrington Results: 2Benign F indings Date of Service: 08/13/24 Follow Up: 1 Year From Orig inal Mammogram Procedure(s): MM tomosynthesis screening BI Accession Number(s): [id number] cc: Galina Arrington EXAMINATION: MM SCREENING DIGITAL [...] 08/22/24 1213 DD/ 1445 TD/TT: 08/13/24 1505 Feather Mixer: Procedure Note Donotuseinterpreter, Image - 08/22/[address] [place], [place] [address] Mammography Report Signed Patient: Britney Spence#: [id number] : 8Acct:[id number] Age/Sex: 68 / FADM Date: 08/13/24 Loc: HO.MAMMO Attending Dr: Galina Arrington MD Ordering Physician: Melida Arringtonults: 2Benign F indings Date of Service: 08/13/24Follow Up: 1 Year From Orig inal Mammogram Procedure(s): MM tomosynthesis screening BI Accession Number(s): [id number] cc: Galina Arrington EXAMINATION: MM SCREENING DIGITAL [...] 08/22/24 1213 DD/ 1445 TD/TT: 08/13/24 1505 Feather Mixer: us Galina Arrington MD IMG BI PROCEDURES Final Result * Albumin, Random Urine W/Creatinine (07/29/2024 11:20 AM EST) Creatinine, Urine 47.63 mg/dL [facility] Microalbumin Urine 12.0 mg/L [facility] Microalbum Creatinine Ratio Ur 25.1 <30 ug/mg cr [facility] Comment:Albumin/Creatinine R at Reference Ranges: Normal: < 30 ug/mg creatinine Microalbuminuria: 30 - 300 ug/mg creatinineClinical Albuminuria: > 300 ug/mg creatinine Urine (Urine, Random) 07/29/2024 11:20 AM EST 07/29/2024 1:02 PM EST Galina Arrington MD LAB URINE ORDERABLES Final Res ult [facility] [address] [place] [phone] * (ABNORMAL) Lipid Panel, Standard (07/29/2024 11:20 AM EST) Triglycerides 220(H) <150 mg/dL [facility] Comment:Desirable Triglyceri de: less than 150 mg/dLBorderline High Triglyceride 150-199 mg/dLHigh Triglyceride: 200-499 mg/dLVery High Triglyceride: greater than or equal to 5OO mg/dL Cholesterol 176 <200 mg/dL [facility] Comment:Desirable Cholestero l: less than 200 mg/dLBorderline High Cholesterol: 200-239 mg/dLHigh Cholesterol: greater than 239 mg/dL LDL Cholesterol Calculated 77 <100 mg/dL [facility] Comment:Desirable LDL: less than 100 mg/dLNear Optimal/Above Optimal LDL: 110- 129 mg/dLBorderline High LDL: 130-159 mg/dLHigh LDL: 160-189 mg/dLVery High LDL: greater than or equal to 190 mg/dL HDL Cholesterol 55 >40 mg/dL [facility] Comment:Desirable HDL: great er than 40 mg/dL Note: This HDL assay may give artificially low results in patients with liver disease. Blood Venous blood specimen / Unknown 07/29/2024 11:20 AM EST 07/29/2024 1:03 PM EST us Galina Arrington MD LAB BLOOD ORDERABLES Final Res ult Performing Organization Address [facility] [address]/ZIP Co de Phone Number [facility] [address] [place] [address] [phone] * HPV mRNA E6/E7 w/Reflex to HPV Genotypes 16, 18/45 (02/16/2023 3:33 PM EDT) HPV nRNA E6/E7 Not Detected Not Detected [facility] Comment:Methodology: Transcr iption-Mediated AmplificationThis assay detects E6/E7 viral messenger RNA (mRNA) from 14high-risk HPV types (16,18,31,33,35,39,45,51,52,56,58,59,66,68).Cervical sources are required for HPV testing.If a vaginal source from a patient who has had atotal hysterectomy with removal of cervix wassubmitted, please contact the testing laboratoryfor alternative testing options.For additional information, please refer [email or web address](This link if provided for information/educational purposes only.)THIS TEST WAS PERFORMED AT:[facility] [place] [phone] LADD MD HPV mRNA E6/E7 [facility] HPV 16 RNA [facility] HPV 18/45 RNA [facility] 02/16/2023 3:33 PM EDT 02/20/2023 9:15 AM EDT Galina Arrington MD LAB CYTOLOGY ORDERABLES Final Result Performing Organization Address City/[facility] [address]/ZIP Co de Phone Number [facility] [address] [place] [address] [phone] * Pap Smear (02/16/2023 3:33 PM EDT) 02/16/2023 3:33 PM EDT 02/20/2023 9:15 AM EDT Narrative [facility] - 02/28/2023 1:40 PM EDT ----- ------- Name: Prisca Spence Age/Sex: 67/F : 1955 Unit#: [id number] Attend Dr: Galina Arrington Re02/16/23 Status: DEP [facility]F [facility] Disch: ----- ------- SPEC : [id number] RECD: 02/20/23 STATUS: SJ RUIZ NUM: [id number] SHA: 02/16/23-[address] [facility] [address]: Galina Arrington ENTERED: 02/20/23 SP TYPE: Pap Smr OT DR: ORDERED: Pap Smear Interpretation Satisfactory for evaluation. Negative for intraepithelial lesion or malignancy. HPV mRNA E6/E7: NOT DETECTED This assay detects E6/E7 viral messenger RNA (mRNA) from 14 high-risk HPV types (16, 18, 31, 33, 35, 39, 45, 51, 52, 56, 58, 59, 66, 68) HPV testing performed by [facility], [place], [place]. See reference laboratory pion of the EMR for entire report. Clinical Information LMP: Unknown date Previous PAP test: 03/2020, NIL HPV neg Material Received ThinPrep-Cervical ----- ------- Signed (signature on file) ZOE Grider ([facility]) 02/28/23 1340 ----- ------- END OF REPORT Galina Arrington MD LAB CYTOLOGY ORDERABLES Final Result [facility] [address] [place] [phone] * Colonoscopy (10/26/2015) [facility] Colonoscopy Normal Normal Comment:repeat in 7 yrs Roro Bedoya NP HEALTH MAINTENANCE Edited Result - Final from Last 3 Months or Most Recently Relevant to Health Maintenance Insurance [facility] Member Subscriber Plan / Payer (Ef fective 2023-Present) Name:Prisca Spence Relation to Subscriber:Self Name:Prisca Spence Payer ID:Not on file Group ID:[id number] Type:Not on file Address: [address] [place] [phone] [facility] ALF OPTIONS (HMO D-SNP) [place], [place] [facility] ST[facility] ADULT Care Teams Paste Worker Relationship Specialty Start Date End Date Galina Arrington MD [address] [place] [phone] PCP - General Family Medicine 08/31/20
[2025-04-20 13:23] LABS: MANUAL DIFF FLAG NO
[2025-04-20 13:32] LABS: Hematocrit 41.9 % (37.0-47.0); Hemoglobin 13.4 g/dl (12.0-16.0); Imm Gran Abs Auto 0.01 X10*3/uL (0.00-0.03); Imm Gran Pct Auto 0.2 % (0.0-0.4); Lymphocytes Absolute Auto 2.2 X10*3/uL (1.2-4.9); Mean Corpuscular HGB Conc 32.0 g/dl (31.0-35.0); Mean Corpuscular Hemoglobin 28.6 pg (27.0-33.0); Mean Corpuscular Volume 89.3 fL (80.0-98.0); NRBC Abs Auto 0.000 X10*3/uL (0.0-0.012); NRBC Pct Auto 0.0 /100WBC (0.0-0.2); Platelet Count 216 X10*3/uL (160-400); Red Blood Count 4.69 X10*6/uL (4.20-5.50); White Blood Count 6.4 X10*3/uL (4.8-10.8)
[2025-04-20 13:54] LABS: Alanine Aminotransferase 26 U/L (0-31); Albumin Level 4.2 g/dL (3.5-5.0); Alkaline Phosphatase 81 U/L (39-117); Anion Gap 11 (12-20); Aspartate Amino Transferase 25 U/L (5-31); Blood Urea Nitrogen 21 mg/dL (9-16); Calcium 9.8 mg/dL (8.4-10.2); Carbon Dioxide 30 mmol/L (22-29); Chloride 104 mmol/L (96-108); Estimated Glomerular Filt Rate > 60; Potassium 4.8 mmol/L (3.3-5.1); Sodium 140 mmol/L (135-145); Total Protein 7.7 g/dL (6.5-8.0)
[2025-04-21 05:27] LABS: ~HepC Num1 0.10 S/CO (0.00-0.79); ~Hepatitis C Antibody Nonreactive (Nonreactive)
== END 2025-04-20 11:02 | disposition home or self-care (01) ==
LOC: HO.HHCL 11:01
PROVIDERS: PCP General Practice; Visit Provider General Practice
DX: Z01.818 Encounter for other preprocedural examination (principal); Z13.1 Encounter for screening for diabetes mellitus; Z11.59 Encounter for screening for other viral diseases
CPT/HCPCS: 36415; 80053; 83036; 85025; 86803

== ENCOUNTER 2025-05-21 13:16 | Outpatient (REF) | payer OTHER, SELFPAY ==
--- NOTE | ~2025-05-21 | US_ITS ---
EXAMINATION: US RETROPERITONEAL LIMITED (RENAL ONLY) CLINICAL INFORMATION: Kidney stone.. COMPARISON: Correlated to CT dated May 27, 2024. TECHNIQUE: Real-time ultrasound kidneys using grayscale technique. FINDINGS: RIGHT KIDNEY: 10 x 4 x 4 cm (SAG x AP x TRV). Normal echotexture. Renal cortical thickness is normal. No hydronephrosis. No solid or cystic lesion. LEFT KIDNEY: 11 x 5 x 4 cm (SAG x AP x TRV). Normal echotexture. Renal cortical thickness is normal. No hydronephrosis. Extrarenal pelvis. No solid or cystic lesion. US/US renal BI IMPRESSION: No hydronephrosis. No gross nephrolithiasis.. Electronically signed by: Trevor Espinal MD 05/21/2025 01:58 PM EDT
--- OUTSIDE RECORDS SUMMARY | 2025-05-21 16:12 | XMS_ITS | Encounter Summary ---
Author Organization [employer] Address [address] [facility] 7t [place] [address] Care Team Providers Care Cook Vegetable Name Role Phone Galina Arrington MD Primary Care Provider [phone] Reason for Visit * Reason Onset Date Comments Created in Error 04/03/2024 Encounter Details Date Type Department Care Team ([facility] st Contact Info) Description 04/03/2024 Telephone [facility] [address] [place], [place] [phone] Galina Arrington MD [address] [place], [place] [phone] Created in Error Social History Tobacco Use [...] on filedocumented in this encounter Care Teams Cook Vegetable Relationship Specialty Start Date End Date Galina Arrington MD [address] [place] [address] PCP - General Family Medicine 08/31/20 documented as of this encounter
--- OUTSIDE RECORDS SUMMARY | 2025-05-21 16:12 | XMS_ITS | Encounter Summary ---
Author Organization [employer] Address [address] [facility] [address]t [place] [address] Care Team Providers Care Operations Dispatcher Name Role Phone Galina Arrington MD Primary Care Provider Encounter Details Date Type Department Care Team (Late st Contact Info) Description 07/04/2022 Orders Only [facility] [address] [place], [place] [phone] Maritza Garcia LPN Social History Tobacco Use [...] on filedocumented in this encounter Care Teams Operations Dispatcher Relationship Specialty Start Date End Date Galina Arrington MD [address] [place], [place] [phone] PCP - General Family Medicine 08/31/20 documented as of this encounter
--- OUTSIDE RECORDS SUMMARY | 2025-05-21 16:12 | XMS_ITS | Encounter Summary ---
Author Organization [employer] [facility] Address [address] [facility] [address]t [place] [address] Care Team Providers Care Pack Mule Worker Name Role Phone Galina Arrington MD Primary Care Provider [phone] Reason for Visit * Reason Comments Med Refill Encounter Details Date Type Department Care Team ([facility] st Contact Info) Description 12/19/2022 Refill [facility] [address] [place], [place] [phone] Galina Arrington MD [address] [place], [place] [phone] Type 2 diabetes mellitus with other specified complication, without long-term current use of insulin ([facility]/HCC) Social History Tobacco Use Types Packs/Day Years [...] complication, without long-term current use of insulin ([facility]) documented in this encounter Care Teams Pack Mule Worker Relationship Specialty Start Date End Date Galina Arrington MD [address] [place] [address] PCP - General Family Medicine 08/31/20 documented as of this encounter
--- OUTSIDE RECORDS SUMMARY | 2025-05-21 16:12 | XMS_ITS | Encounter Summary ---
Author Organization [employer] Address [address] [facility] 7t [place] [address] Care Team Providers Care Hand Assembler Name Role Phone Galina Arrington MD Primary Care Provider [phone] Reason for Visit * Reason Comments Med Refill Encounter Details Date Type Department Care Team ([facility] st Contact Info) Description 08/25/2024 Refill [facility] [address] [place], [place] [phone] Galina Arrington MD [address] [place], [place] [phone] Oral lesion Social History Tobacco Use Types [...] tissues documented in this encounter Care Teams Hand Assembler Relationship Specialty Start Date End Date Galina Arrington MD [address] [place] [address] PCP - General Family Medicine 08/31/20 documented as of this encounter
--- OUTSIDE RECORDS SUMMARY | 2025-05-21 16:12 | XMS_ITS | Encounter Summary ---
Author Organization [employer] Address [address] [place] [address] Care Team Providers Care Non Destructive Testing Scientist Name Role Phone Galina Arrington MD Primary Care Provider [phone] Encounter Details Date Type Department Care Team (Late st Contact Info) Description 03/30/2025 Orders Only [facility] MED[facility]INE [address] [place], [place] [phone] Treva Ingram MD [address] [place], [place] [phone] Social History Tobacco Use Types Packs/Day Years [...] documented as of this encounter Care Teams Non Destructive Testing Scientist Relationship Specialty Start Date End Date Galina Arrington MD [address] [place] [address] PCP - General Family Medicine 08/31/20 documented as of this encounter
--- OUTSIDE RECORDS SUMMARY | 2025-05-21 16:12 | XMS_ITS | Encounter Summary ---
Author Organization [employer] Address [address] [facility] 7t [place] [address] Care Team Providers Care Brilliandeer Looper Name Role Phone Galina Arrington MD Primary Care Provider [phone] Encounter Details Date Type Department Care Team (Late st Contact Info) Description 05/21/2025 Orders Only [facility]INE [address] [place], [place] [phone] Galina Arrington MD 230 [place], [place] [phone] Social History Tobacco Use Types Packs/Day Years [...] t he electric, gas, oil or water [employer] threatened to shut off services in your [...] on file documented as of this encounter Procedures Procedure Name Priority Date/Time Associated Diagnosis Comments US RENAL COMPLETE Routine 05/21/2025 1:3 4 PM EDT documented in this encounter Results * US Renal Complete (05/21/2025 1:34 PM EDT) Anatomical Region Laterality Modality Kidney Ultrasound 05/21/2025 1:34 PM EDT Narrative 05/21/2025 2:01 PM EDT [place] [address] Ultrasound Report Signed Patient: Prisca Spence MR#: [id number] : 1955 Acct:[id number] Age/Sex: 69 / F ADM Date: 05/21/25 Loc: HO.US Attending Dr: Galina Arrington MD Ordering Physician: Galina Arrington Date of Service: 05/21/25 Procedure(s): US renal BI Accession Number(s): [id number] cc: Galina Arrington Reason for Exam: KIDNEY STONES EXAMINATION: US RETROPERITONEAL LIMITED (RENAL ONLY) CLINICAL INFORMATION: Kidney stone.. COMPARISON: Correlated to CT dated May 27, 2024. TECHNIQUE: Real-time ultrasound kidneys using grayscale technique. FINDINGS: RIGHT KIDNEY: 10 x 4 x 4 cm (SAG x AP x TRV). Normal echotexture. Renal cortical thickness is normal. No hydronephrosis. No solid or cystic lesion. LEFT KIDNEY: 11 x 5 x 4 cm (SAG x AP x TRV). Normal echotexture. Renal cortical thickness is normal. No hydronephrosis. Extrarenal pelvis. No solid or cystic lesion. US/US renal BI IMPRESSION: No hydronephrosis. No gross nephrolithiasis.. Electronically signed by: Trevor Espinal MD 05/21/2025 01:58 PM EDT RP Dictated By: Trevor Eldridge MD Signed By: <Electronically signed by Trevor Lindquist MD in OV> 05/21/25 1358 DD/ 1334 TD/TT: 05/21/25 1342 Spreader: Procedure Note Donotuseinterpreter, Image - 05/21/2025 [place] [address] Ultrasound Report Signed Patient: Britney Spence#: [id number] : 8Acct:[id number] Age/Sex: 69 / FADM Date: 05/21/25 Loc: HO.US Attending Dr: Galina Arrington MD Ordering Physician: Galina Arrington Date of Service: 05/21/25 Procedure(s): US renal BI Accession Number(s): [id number] cc: Galina Arrington Reason for Exam: KIDNEY STONES EXAMINATION: US RETROPERITONEAL LIMITED (RENAL ONLY) CLINICAL INFORMATION: Kidney stone.. COMPARISON: Correlated to CT dated May 27, 2024. TECHNIQUE: Real-time ultrasound kidneys using grayscale technique. FINDINGS: RIGHT KIDNEY: 10 x 4 x 4 cm (SAG x AP x TRV). Normal echotexture. Renal cortical thickness is normal. No hydronephrosis. No solid or cystic lesion. LEFT KIDNEY: 11 x 5 x 4 cm (SAG x AP x TRV). Normal echotexture. Renal cortical thickness is normal. No hydronephrosis. Extrarenal pelvis. No solid or cystic lesion. US/US renal BI IMPRESSION: No hydronephrosis. No gross nephrolithiasis.. Electronically signed by: Trevor Espinal MD 05/21/2025 01:58 PM EDT RP Dictated By: Trevor Eldridge MD Signed By: <Electronically signed by Trevor Lindquist MDin OV> 05/21/25 1358 DD/ 1334 TD/TT: 05/21/25 1342 Spreader: Galina Arrington MD [facility] PROCEDURES Final Result documented in this encounter Visit Diagnoses Not on filedocumented in this encounter Additional Health Concerns Assessment Noted Time PHQ-9 Depression Total Score: 0 02/07/20 4:18 PM EDT documented as of this encounter Care Teams Brilliandeer Looper Relationship Specialty Start Date End Date Galina Arrington MD [address] [place] [address] PCP - General Family Medicine 08/31/20 documented as of this encounter
--- OUTSIDE RECORDS SUMMARY | 2025-05-21 16:12 | XMS_ITS | Encounter Summary ---
Author Organization [employer] Address [address] [facility] 7t [place] [address] Care Team Providers Care Appellate Conferee Name Role Phone Galina Arrington MD Primary Care Provider [phone] Encounter Details Date Type Department Care Team (Late st Contact Info) Description 08/13/2023 Orders Only [facility]INE [address] [place], [place] [phone] Galina Arrington MD 230 [place], [place] [phone] Screening for colon cancer (Primary Dx) Social [...] colon documented in this encounter Care Teams Appellate Conferee Relationship Specialty Start Date End Date Galina Arrington MD 230 [place] [address] PCP - General Family Medicine 08/31/20 documented as of this encounter
--- OUTSIDE RECORDS SUMMARY | 2025-05-21 16:12 | XMS_ITS | Encounter Summary ---
Author Organization [employer] Address [address] [facility] 7t [place] [address] Care Team Providers Care Incident Manager Name Role Phone Galina Arrington MD Primary Care Provider [phone] Reason for Referral * Consultation (Routine) - Closed Specialty Diagnoses / Procedures Referred By Contac t Referred To Contact Cardiology Diagnoses Coronary artery disease involving [place] coronary artery of [place] heart without angina pectoris Galina Arrington MD [address] [place] [address] Phone: tel: fax: [facility] [address] [place], [place] Phone: tel: fax: Referral ID Status Reason Start Date Expiration Date V isits Requested Visits Authorized [id number] Closed Specialty Services Required 01/05/2025 01/05/2026 1 1 Encounter Details Date Type Department Care Team (Late st Contact Info) Description 01/05/2025 Orders Only [facility] MED[facility]INE 230 [place], [place] [phone] Galina Arrington MD [address] [place], [place] [phone] Coronary artery disease involving [place] coronary artery of [place] heart without angina pectoris (Primary Dx) Social [...] Outpatient Referral Routine Coronary artery disease involving [place] coronary artery of [place] heart without angina pectoris Expected: 01/05/2025 (Approximate), Expires: 01/05/2026 documented as of this encounter Visit Diagnoses Diagnosis Coronary artery disease involving [place] coronary artery of [place] heart without angina pectoris- Primary documented in this encounter Care Teams Incident Manager Relationship Specialty Start Date End Date Galina Arrington MD [address] [place] [address] PCP - General Family Medicine 08/31/20 documented as of this encounter
--- OUTSIDE RECORDS SUMMARY | 2025-05-21 16:12 | XMS_ITS | Encounter Summary ---
Author Organization [employer] Address [address] [facility] 7t [place] [address] Care Team Providers Care Supervisor Receiving And Processing Name Role Phone Galina Arrington MD Primary Care Provider [phone] Encounter Details Date Type Department Care Team (Late st Contact Info) Description 08/06/2024 Telephone [facility] MED[facility]INE 230 [place], [place] [phone] Galina Arrington MD 230 [place], [place] [phone] Social History Tobacco Use Types Packs/Day Years [...] filedocumented in this encounter Care Teams Supervisor Receiving And Processing Relationship Specialty Start Date End Date Galina Arrington MD [address] [place] [address] PCP - General Family Medicine 08/31/20 documented as of this encounter
--- OUTSIDE RECORDS SUMMARY | 2025-05-21 16:12 | XMS_ITS | Encounter Summary ---
Author Organization [employer] Address [address] [facility] 7t [place] [address] Care Team Providers Care Tube Washer Name Role Phone Galina Arrington MD Primary Care Provider [phone] Encounter Details Date Type Department Care Team (Late st Contact Info) Description 11/28/2022 Orders Only [facility] MEDICINE [address] [place] [address] [phone] Treva Ingram MD [address] [place], [place] [phone] Social History Tobacco Use Types Packs/Day Years [...] on filedocumented in this encounter Care Teams Tube Washer Relationship Specialty Start Date End Date Galina Arrington MD [address] [place], [place] [phone] PCP - General Family Medicine 08/31/20 documented as of this encounter
--- OUTSIDE RECORDS SUMMARY | 2025-05-21 16:12 | XMS_ITS | Encounter Summary ---
Author Organization [employer] Address [address] [facility] 7t [place] [address] Care Team Providers Care Spray Gun Repairer Name Role Phone Galina Arrington MD Primary Care Provider [phone] Encounter Details Date Type Department Care Team (Late st Contact Info) Description 01/30/2024 Telephone [facility] MEDICINE [address] [place], [place] [phone] Galina Arrington MD [address] [place], [place] [phone] Social History Tobacco Use Types Packs/Day Years [...] pt stating they've been receiving call but proposal lead writer doesn't see anything documented. documented in this encounter Plan of Treatment Not on file documented as of this encounter Visit Diagnoses Not on filedocumented in this encounter Care Teams Spray Gun Repairer Relationship Specialty Start Date End Date Galina Arrington MD [address] [place] [address] PCP - General Family Medicine 08/31/20 documented as of this encounter
--- OUTSIDE RECORDS SUMMARY | 2025-05-21 16:12 | XMS_ITS | Encounter Summary ---
Author Organization [employer] Address [address] [facility] 7t [place] [address] Care Team Providers Care Director Of Occupational Therapy Name Role Phone Galina Arrington MD Primary Care Provider [phone] Encounter Details Date Type Department Care Team (Late st Contact Info) Description 01/11/2024 Orders Only [facility] MED[facility]INE 230 [place], [place] [phone] Galina Arrington MD [address] [place], [place] [phone] Social History Tobacco Use Types Packs/Day Years [...] on filedocumented in this encounter Care Teams Director Of Occupational Therapy Relationship Specialty Start Date End Date Galina Arrington MD [address] [place] [address] PCP - General Family Medicine 08/31/20 documented as of this encounter
--- OUTSIDE RECORDS SUMMARY | 2025-05-21 16:12 | XMS_ITS | Encounter Summary ---
Author Organization [employer] Address [address] [facility] 7t [place] [address] Care Team Providers Care Limnologist Name Role Phone Galina Arrington MD Primary Care Provider [phone] Reason for Visit * Reason Onset Date Comments No Show 12/22/2022 Encounter Details Date Type Department Care Team ([facility] st Contact Info) Description 12/22/[address] 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
--- OUTSIDE RECORDS SUMMARY | 2025-05-21 16:12 | XMS_ITS | Clinical Summary ---
Author Organization [employer] Address [address] [facility] 7[address] [place] [address] Care Team Providers Care Well Servicing Rig Operator Name Role Phone Galina Arrington MD Primary Care Provider [phone] Allergies Active Allergy Reactions Criticality Noted Date Comments Andrews Oil 01/15/2017 Other reaction(s): hives Loratadine 10/18/2010 Other reaction(s): nausea: dizziness Peanut (Diagnostic) 10/18/2010 Other reaction(s): unspecified Penicillins 10/18/2010 Other reaction(s): unspecified Tramadol Nausea Only 10/18/2010 Medications EPINEPHrine (Epipen) 0.3 MG/0.3ML injection syringe INJECT 1 PEN IN THE MUSCLE ONE TIME DIRECTED 2 Active Blood Glucose Monitoring Suppl (ONE TOUCH ULTRA 2) w/Device kitIndications:T ype 2 diabetes mellitus with other specified complication, without long-term current use of insulin ([facility]) Use to monitor blood glucose twice daily 1 kit 4 Active OneTouch Delica Lancets 33G miscIndications: Type 2 diabetes mellitus with other specified complication, without long-term current use of insulin ([facility]) Use to test blood sugar 2 times daily 100 each 11 4 Active Bisacodyl EC 5 MG EC tablet TAKE 4 TABLETS BY MOUTH AT NOON THE DAY BEFORE COLONOSCOPY 4 Active gabapentin (Neurontin) 300 MG capsuleIndicatio ns:Type 2 diabetes mellitus with other specified complication, without long-term current use of insulin ([facility]),Multiple joint pain Take 1 capsule (300 mg) by mouth 3 times daily. 90 capsule 11 5 026 Active aspirin 81 MG chewable tabletIndication s:Type 2 diabetes mellitus with other specified complication, without long-term current use of insulin ([facility]) Chew 1 tablet (81 mg) Once per day. 90 tablet 3 5 026 Active docusate sodium (Colace) 100 MG capsuleIndicatio ns:Constipation, unspecified constipation type TAKE 1 CAPSULE BY MOUTH TWICE DAILY 180 capsule 3 5 Active rosuvastatin (Crestor) 40 MG tablet TAKE 1 TABLET BY MOUTH EVERY MORNING 90 tablet 3 5 Active cromolyn (Opticrom) 4 % ophthalmic solution INSTILL 1 DROP INTO THE AFFECTED EYE FOUR TIMES A DAY IN THE MORNING, AT NOON, IN THE EVENING AND AT BEDTIME NEEDED 10 mL 5 Active DULoxetine (Cymbalta) [address] capsule TAKE 1 CAPSULE BY MOUTH EVERY DAY FOR PAIN 90 capsule 3 5 Active ketoconazole (NIZOral) 2 % shampooIndicatio ns:Telogen effluvium Apply topically 2 (two) times a week. 120 mL 1 5 Active Blood Pressure kitIndications:E levated BP without diagnosis of hypertension 1 each 2 times daily. 1 kit 5 026 Active simethicone (Mylicon) 80 MG chewable tablet CHEW AND SWALLOW 1 TABLET BY MOUTH FOUR TIMES DAILY AFTER MEALS AND BEFORE BEDTIME NEEDED FOR GAS 120 tablet 3 5 Active olmesartan (Benicar) 5 MG tabletIndication s:Type 2 diabetes mellitus with other specified complication, without long-term current use of insulin ([facility]),Primary hypertension Take 1 tablet (5 mg) by mouth Once per day. For blood pressure and kidney protection 90 tablet 3 5 026 Active glipiZIDE XL (Glucotrol XL) 10 MG 24 hr tabletIndication s:Type 2 diabetes mellitus with other specified complication, without long-term current use of insulin ([facility]) Take 1 tablet (10 mg) by mouth Once per day. Do not crush, chew, or split. 90 tablet 3 5 026 Active cyclobenzaprine (Flexeril) 10 MG tablet TAKE 1 TABLET BY MOUTH EVERY NIGHT AT BEDTIME NEEDED FOR BACK PAIN 30 tablet 3 5 Active diphenhydrAMINE (Evelyne-Dryl) 25 MG tabletIndication s:Oral lesion TAKE 1 TABLET BY MOUTH AT BEDTIME NEEDED FOR DIZZINESS 20 tablet 1 5 Active cholecalciferol (Vitamin D-3) 50 MCG (1999 UT) capsule Take 1 capsule (50 mcg) by mouth Once per day. 90 capsule 3 5 Active isosorbide mononitrate ER (Imdur) 60 MG 24 hr tabletIndication s:Primary hypertension Take 1 tablet (60 mg) by mouth Once per day. Do not crush or chew. 90 tablet 3 5 Active omeprazole (PriLOSEC) [address] capsuleIndicatio ns:Gastroesophag eal reflux disease without esophagitis Take 1 capsule (20 mg) by mouth Once per day. 90 capsule 3 5 Active metFORMIN XR (Glucophage-XR) 500 MG 24 hr tabletIndication s:Type 2 diabetes mellitus with other specified complication, without long-term current use of insulin ([facility]) TAKE 1 TABLET BY MOUTH EVERY MORNING AND 2 TABLETS EVERY EVENING 270 tablet 3 5 Active montelukast (Singulair) 10 MG tabletIndication s:Mild intermittent asthma without complication TAKE 1 TABLET BY MOUTH EVERY DAY IN THE EVENING FOR ALLERGIES 90 tablet 3 5 Active Tirzepatide (Mounjaro) 2.5 MG/0.5ML solution auto-injector Inject 2.5 mg under the skin 1 (one) time per week. 2 mL 2 5 Active meclizine (Antivert) 25 MG tablet Take 1 tablet (25 mg) by mouth if needed in the morning, at noon, and at bedtime for dizziness for up to 10 days. 30 tablet 5 025 Active Problems Problem Noted Date Diagnosed Date [...] Constipation 05/26/2015 Coronary artery disease invo lving mentasta coronary artery of mentasta heart without angina pectoris 05/26/2015 Gastroesophageal reflux [...] Encounters Date Type Department Care Team Description 05/21/2025 Orders Only [facility] [address] [place] [phone] Galina Arrington MD 05/01/2025 Telephone [facility] [address] [place] [address] Trini Irene RN Paperwork/Forms 04/17/2025 2:45 PM EDT Office Visit [facility] [address] [place] [address] Galina Arrington MD Pre-op evaluation (Primary Dx); Primary hypertension; Gastroesophageal reflux disease without esophagitis; Type 2 diabetes mellitus with other specified complication, without long-term current use of insulin ([facility]); Mild intermittent asthma without complication; Overweight (BMI 25.0-29.9); Pulmonary emphysema, unspecified emphysema type ([facility]) 04/17/2025 Travel 04/15/2025 Telephone [facility] [address] [place] [address] Galina Arrington MD Med Refill 04/15/2025 Telephone [facility] [address] [place] [address] Galina Arrington MD chart prep 03/30/2025 Orders Only [facility] [address] [place] [address] Treva Ingram MD 03/27/2025 Telephone [facility] [address] [place] [phone] Galina Arrington MD telephone call 03/12/2025 Refill [facility] [address] [place] [address] Galina Arrington MD Oral lesion 02/28/2025 Refill [facility] [address] [place] [address] Galina Arrington MD 02/26/2025 Orders Only [facility] External Provider, [facility] from Last 3 Months Immunizations Immunization Administration [...] FOBT 1955 Sigmoidoscopy 1955 Eye Exam 10/12/1967 RSV Patients and Patients Aged 60 years [...] 07/10/2022, Additional history exists Diabetes: Hemoglobin A1C 07/20/2025 025, 02/06/2025, 07/29/2024, Additional history exists SDOH Screening 07/22/2025 07/22/2024 [...] 03/24, 01/15/2017 Pap Smear Discontinued 02/16/2023, 04/13/2020 Hepatitis C Screening Completed 04/20/2025 HIB Vaccines Aged Out No longer eligi [...] COMPLETE Routine 05/21/2025 1:3 4 PM EDT ECG 12-LEAD Routine 04/21/2025 7:53 AM EDT Pre-op evaluation HEPATITIS C AB W/REFL TO HCV RNA, QN, PCR Routine 04/20/2025 11:25 AM EDT Pre-op evaluation HEMOGLOBIN A1C Routine 04/20/2025 11:25 AM EDT Pre-op evaluation CBC WITH AUTO DIFFERENTIAL Routine 04/20/2025 11:25 AM EDT Pre-op evaluation COMPREHENSIVE METABOLIC PANEL Routine 04/20/2025 11:25 AM EDT Pre-op evaluation MR WRIST WO CONTRAST RIGHT Routine 02/28/2025 9:02 AM EDT BI MAMMOGRAM SCREENING TOMOSYNTHESIS BILATERAL Routine 08/13/2024 [...] Routine 01/17/2023 2:30 PM EDT Defective dental yarsani COMPREHENSIVE ORAL EVALUATION - NEW OR ESTABLISHED PATIENT Routine 01/17/2023 2:30 PM EDT Defective dental yarsani HM COLONOSCOPY Routine 10/26/2015 9:21 AM EDT from Last 3 Months or Most Recently Relevant to Health Maintenance Results * US Renal Complete (05/21/2025 1:34 PM EDT) Anatomical Region Laterality Modality Kidney Ultrasound 05/21/2025 1:34 PM EDT Narrative 05/21/2025 2:01 PM EDT [address] [address] Ultrasound Report Signed Patient: Prisca Spence MR#: [id number] : 1955 Acct:[id number] Age/Sex: 69 / F ADM Date: 05/21/25 Loc: HO.US Attending Dr: Galina Arrington MD Ordering Physician: Galina Arrington Date of Service: 05/21/25 Procedure(s): US renal BI Accession Number(s): [id number] cc: Galina Arrington Reason for Exam: KIDNEY [...] Trevor Espinal MD 05/21/2025 01:58 PM EDT Dictated By: Trevor Eldridge MD Signed By: <Electronically signed by Trevor Lindquist MD in OV> 05/21/25 1358 DD/ 1334 TD/TT: 05/21/25 1342 Cork Mixer: Procedure Note Donotuseinterpreter, Image - 05/21/[address] [address] Ultrasound Report Signed Patient: Prisac SpenceMR#: [id number] : 8Acct:[id number] Age/Sex: 69 / FADM Date: 05/21/25 Loc: HO.US Attending Dr: Galina Arrington MD Ordering Physician: Galina Arrington Date of Service: 05/21/25 Procedure(s): US renal BI Accession Number(s): [id number] cc: Galina Arrington Reason for Exam: KIDNEY [...] 05/21/25 1358 DD/ 1334 TD/TT: 05/21/25 1342 Cork Mixer: Galina Arrington MD IMG US PROCEDURES Final Result * ECG 12 lead (04/21/2025 7:53 AM EDT) Narrative Galina Arrington MD - 04/21/2025 7:53 AM EDT Normal sinus rhythm, no ST-T segment changes Ventricular rate 77 Galina Arrington MD ECG ORDERABLES Final Result * CBC auto differential (04/20/2025 11:25 AM EDT) White Blood Count 6.4 4.8 - 10.8 X10*3/uL [facility] Red Blood Count 4.69 4.20 - 5.50 X10*6/uL [facility] Hemoglobin 13.4 12.0 - 16.0 g/dl [facility] Hematocrit 41.9 37.0 - 47.0 % [facility] Mean Corpuscular Volume 89.3 80.0 - 98.0 fL [facility] Mean Corpuscular Hemoglobin 28.6 27.0 - 33.0 pg [facility] Mean Corpuscular HGB Conc 32.0 31.0 - 35.0 g/dl [facility] Red Cell Distribution Width 14.5 11.0 - 16.0 % [facility] Platelet Count 216 160 - 400 X10*3/uL [facility] Mean Platelet Volume 11.8 9.4 - 12.3 fL [facility] Neutrophils Percent Auto 57.1 45 - 73 % [facility] Imm Gran Pct Auto 0.2 0.0 - 0.4 % [facility] Lymphocytes Percent Auto 34.5 20 - 40 % [facility] Monocytes Percent Auto 6.1 2 - 11 % [facility] Eosinophils Percent Auto 1.6 0 - 4 % [facility] Basophils Percent Auto 0.5 0 - 2 % [facility] NRBC Pct Auto 0.0 0.0 - 0.2 /100WBC [facility] Neutrophils Absolute Auto 3.7 2.0 - 8.3 x10*3/uL [facility] Imm Gran Abs Auto 0.01 0.00 - 0.03 X10*3/uL [facility] Lymphocytes Absolute Auto 2.2 1.2 - 4.9 X10*3/uL [facility] Monocytes Absolute Auto 0.4 0.1 - 1.2 X10*3/uL [facility] Eosinophils Absolute Auto 0.1 0.0 - 0.4 X10*3/uL [facility] Basophils Absolute Auto 0.0 0.0 - 0.2 X10*3/uL [facility] NRBC Abs Auto 0.000 0.0 - 0.012 X10*3/uL [facility] Blood Venous blood specimen / Unknown 04/20/2025 11:25 AM EDT 04/20/2025 1:19 PM EDT Galina Arrington MD LAB BLOOD ORDERABLES Final Res ult Performing Organization Address [facility] Co de Phone Number [facility] [address] [place] [address] [phone] * Hepatitis C Antibody with Reflex to HCV, RNA, Quantitative, Real-Time PCR (04/20/2025 11:25 AM EDT) Hepatitis C Antibody Nonreactive Nonreactive [facility] Comment:Antibodies to HCV no t detected; does not exclude early acuteHCV infection. Blood Venous blood specimen / Unknown 04/20/2025 11:25 AM EDT 04/20/2025 1:19 PM EDT Galina Arrignton MD LAB BLOOD ORDERABLES Final Res ult Performing Organization Address [facility] Co de Phone Number [facility] [address] [place] [address] [phone] * (ABNORMAL) Hemoglobin A1c (04/20/2025 11:25 AM EDT) Hemoglobin A1c 9.9(H) <6.0 % [facility] Comment:Hemoglobin A1C Refer ence Range Adults: 4.8 - 6.0 % Non diabetic: < 6.0 % Goal: < 7.0 %Additional Action Suggested: > 8.0 %Note: Hemoglobin A1c results are invalid for patients with abnormal amounts of HbF. Blood transfusions may impact the HbA1c concentration in the patient sample. Estimated Average Glucose 237 mg/dL [facility] Comment:eAG = Estimated ave rage glucose which is %A1C expressed asaverage glucose, using the formula of the I2Q-JgacnerIdyxttm Glucose study (ADAG), Diabetes Care, Vol.31,#8,Feb. 2007 Blood Venous blood specimen / Unknown 04/20/2025 11:25 AM EDT 04/20/2025 1:16 PM EDT us Galina Arrington MD LAB BLOOD ORDERABLES Final Res ult [facility] [address] [place] [address] [phone] * (ABNORMAL) Comprehensive Metabolic Panel (04/20/2025 11:25 AM EDT) Sodium 140 135 - 145 mmol/L [facility] Potassium 4.8 3.3 - 5.1 mmol/L [facility] Chloride 104 96 - 108 mmol/L [facility] Carbon Dioxide 30(H) 22 - 29 mmol/L [facility] Anion Gap 11(L) 12 - 20 [facility] Urea Nitrogen (BUN) 21(H) 9 - 16 mg/dL [facility] Creatinine, Serum 0.66 0.5 - 1.4 mg/dL [facility] Estimated Glomerular Filt Rate >60 [facility] Comment:Chronic Kidney Disea se: Estimated GFR < 60 mL/min/1.83q1[place] Kidney Disease: Estimated GFR < 15 mL/min/1.73m2 Glucose 189(H) 60 - 115 mg/dL [facility] Calcium 9.8 8.4 - 10.2 mg/dL [facility] Bilirubin, Total 0.4 0.0 - 1.0 mg/dL [facility] Aspartate Amino Transferase 25 5 - 31 U/L [facility] Alanine Aminotransferase 26 0 - 31 U/L [facility] Total Protein 7.7 6.5 - 8.0 g/dL [facility] Albumin Level 4.2 3.5 - 5.0 g/dL [facility] Alkaline Phosphatase 81 39 - 117 U/L [facility] Blood Venous blood specimen / Unknown 04/20/2025 11:25 AM EDT 04/20/2025 1:19 PM EDT us Galina Arrington MD LAB BLOOD ORDERABLES Final Res ult [facility] [address] [place] [phone] * MR Wrist w/o Contrast Right (02/28/2025 9:02 AM EDT) Anatomical Region Laterality Modality Upper Extremities, Wrist Right Magneti c Resonance 02/28/2025 9:02 AM EDT Narrative 02/28/2025 9:03 AM EDT [address] [address] Magnetic Resonance Report Signed Patient: Prisca Spence MR#: [id number] : 1955 Acct:[id number] Age/Sex: 69 / F ADM Date: 02/26/25 Loc: HO.MRI Attending Dr: Sejal Jin MD Ordering Physician: Sejal Jin MD Date of Service: 02/26/25 Procedure(s): MR wrist RT wo con Accession Number(s): [id number] cc: Galina Arrington; Sejal Jin MD CLINICAL [...] in OV> 02/28/25902 DD/ 1 TD/TT: 02/28/25901 Cork Mixer: Procedure Note Donsusaninterpreter, Image - 02/28/[address] [place] [address] Magnetic Resonance Report Signed Patient: Britney Spence#: [id number] : 8Acct:[id number] Age/Sex: 69 / FADM Date: 02/26/25 Loc: HO.MRI Attending Dr: Sejal Jin MD Ordering Physician: Sejal Jin MD Date of Service: 02/26/25 Procedure(s): MR wrist RT wo con Accession Number(s): [id number] cc: Galina Arrington; Sejal Jin MD CLINICAL [...] in OV> 02/28/25902 DD/ 1 TD/TT: 02/28/25901 Cork Mixer: [facility] External Provider IMG MRI PROCEDURES Final Result * BI Mammogram Screening Tomosynthesis Bilateral (08/13/2024 2:45 PM EST) Anatomical Region Laterality Modality Breast Bilateral Mammography 08/13/2024 2:45 PM EST Narrative 08/22/2024 12:16 PM EST [address] [place] [address] Mammography Report Signed Patient: Prisca Spence MR#: [id number] : 1955 Acct:[id number] Age/Sex: 68 / F ADM Date: 08/13/24 Loc: HO.MAMMO Attending Dr: Galina Arrington MD Ordering Physician: Galian Arrington Results: 2Benign F indings Date of Service: 08/13/24 Follow Up: 1 Year From Orig inal Mammogram Procedure(s): MM tomosynthesis screening BI Accession Number(s): [id number] cc: Galina Arrington EXAMINATION: MM SCREENING DIGITAL [...] by: Zulay Chris DO 08/22/2024 12:13 PM [facility] Dictated By: Zulay Chris DO Signed By: <Electronically signed by Zulay Chris DO in OV> 08/22/24 1213 DD/ 1445 TD/TT: 08/13/24 1505 Cork Mixer: Procedure Note Donotuseinterpreter, Image - 08/22/2024 [facility] [address] [place] [address] Mammography Report Signed Patient: Prisca SpenceMR#: [id number] : 8Acct:[id number] Age/Sex: 68 / FADM Date: 08/13/24 Loc: HO.MAMMO Attending Dr: Galina Arrington MD Ordering Physician: Melida Arringtonults: 2Bnatalya cole Date of Service: 08/13/24Follow Up: 1 Year From [facility] ina Mammogram Procedure(s): MM tomosynthesis screening BI Accession Number(s): [id number] cc: Galina Arrington EXAMINATION: MM SCREENING DIGITAL [...] 08/22/24 1213 DD/ 1445 TD/TT: 08/13/24 1505 Cork Mixer: us Galina Arrington MD [facility] BI PROCEDURES Final Result * Albumin, Random Urine W/Creatinine (07/29/2024 11:20 AM EST) Creatinine, Urine 47.63 mg/dL [facility] Microalbumin Urine 12.0 mg/L [facility] Microalbum Creatinine Ratio Ur 25.1 <30 ug/mg cr [facility] Comment:Albumin/Creatinine R atio Reference Ranges: Normal: < 30 ug/mg creatinine Microalbuminuria: 30 - 300 ug/mg creatinineClinical Albuminuria: > 300 ug/mg creatinine Urine (Urine, Random) 07/29/2024 11:20 AM EST 07/29/2024 1:02 PM EST us Galina Arrington MD LAB URINE ORDERABLES Final Res ult Performing Organization Address [facility] Co de Phone Number [facility] [address] [place] [phone] * (ABNORMAL) Lipid Panel, Standard (07/29/2024 11:20 AM EST) Triglycerides 220(H) <150 mg/dL [facility] Comment:Desirable Triglyceri de: less than 150 mg/dLBorderline High Triglyceride 150-199 mg/dLHigh Triglyceride: 200-499 mg/dLVery High Triglyceride: greater than or equal to 5OO mg/dL Cholesterol 176 <200 mg/dL [facility] Comment:Desirable Cholestero l: less than 200 mg/dLBorderline High Cholesterol: 200-239 mg/dLHigh Cholesterol: greater than 239 mg/dL LDL Cholesterol Calculated 77 <100 mg/dL [facility] Comment:Desirable LDL: less than 100 mg/dLNear Optimal/Above Optimal LDL: 110- 129 mg/dLBorderline High LDL: 130-159 mg/dLHigh LDL: 160-189 mg/dLVery High LDL: greater than or equal to 190 mg/dL HDL Cholesterol 55 >40 mg/dL [facility] Comment:Desirable HDL: great er than 40 mg/dL Note: This HDL assay may give artificially low results in patients with liver disease. Blood Venous blood specimen / Unknown 07/29/2024 11:20 AM EST 07/29/2024 1:03 PM EST us Galina Arrington MD LAB BLOOD ORDERABLES Final Res ult Performing Organization Address [facility] Co de Phone Number [facility] [address] [place] [phone] [phone] * HPV mRNA E6/E7 w/Reflex to HPV Genotypes 16, 18/45 (02/16/2023 3:33 PM EDT) HPV nRNA E6/E7 Not Detected Not Detected [facility] Comment:Methodology: Transcr iption-Mediated AmplificationThis assay detects E6/E7 viral messenger RNA (mRNA) from 14high-risk HPV types (16,18,31,33,35,39,45,51,52,56,58,59,66,68).Cervical sources are required for HPV testing.If a vaginal source from a patient who has had atotal hysterectomy with removal of cervix wassubmitted, please contact the testing laboratoryfor alternative testing options.For additional information, please refer [email or web address]/faq/HLM343a6(This link if provided for information/educational purposes only.)THIS TEST WAS PERFORMED AT:[address] [place] [phone] LADD MD HPV mRNA E6/E7 TNP [facility] HPV 16 RNA [facility] HPV 18/45 RNA [facility] 02/16/2023 3:33 PM EDT 02/20/2023 9:15 AM EDT Galina Arrington MD LAB CYTOLOGY ORDERABLES Final Result [facility] [address] [place] [phone] * Pap Smear (02/16/2023 3:33 PM EDT) 02/16/2023 3:33 PM EDT 02/20/2023 9:15 AM EDT Narrative [facility] - 02/28/2023 1:40 PM EDT ----- ------- Name: Prisca Spence Age/Sex: 67/F : 1955 Unit#: [id number] Attend Dr: Galina Arrington Re02/16/23 Status: DEP [facility]: ----- ------- SPEC : [id number] RECD: 02/20/23 STATUS: SJ SAAR NUM: [id number] SHA: 02/16/23-1533 [facility] DR: Galina Arrington ENTERED: 02/20/23-1427 SP TYPE: Pap Smr OT DR: ORDERED: Pap Smear Interpretation Satisfactory for evaluation. Negative for intraepithelial lesion or malignancy. HPV mRNA E6/E7: NOT DETECTED This assay detects E6/E7 viral messenger RNA (mRNA) from 14 high-risk HPV types (16, 18, 31, 33, 35, 39, 45, 51, 52, 56, 58, 59, 66, 68) HPV testing performed by [employer], [place], [place]. See reference laboratory pion of the EMR for entire report. Clinical Information LMP: Unknown date Previous PAP test: 03/2020, NIL HPV neg Material Received ThinPrep-Cervical ----- ------- Signed (signature on file) ZOE Grider (ASC) 02/28/23 1340 ----- ------- END OF REPORT Galina Arrington MD LAB CYTOLOGY ORDERABLES Final Result [facility] [address] [place] [phone] * Colonoscopy (10/26/2015) Colonoscopy Normal Normal Comment:repeat in 7 yrs Roro Bedoya NP HEALTH MAINTENANCE Edited Result - Final from Last 3 Months or Most Recently Relevant to Health Maintenance Insurance [facility] ST[facility] FORMERLY [facility]-WAY OPTIONS (HMO D-SNP) [place] STAND ADULT Care Teams Well Servicing Rig Operator Relationship Specialty Start Date End Date Galina Arrington MD [address] [place] [phone] PCP - General Family Medicine 08/31/20
--- OUTSIDE RECORDS SUMMARY | 2025-05-21 16:12 | XMS_ITS | Encounter Summary ---
Author Organization [employer] Address [address] [facility] [address] [place] [address] Care Team Providers Care Fire Inspector Name Role Phone Galina Arrington MD Primary Care Provider [phone] Reason for Visit * Reason Onset Date Comments Med Refill 04/15/2025 Encounter Details Date Type Department Care Team ([facility] st Contact Info) Description 04/15/2025 Telephone [facility] [address] [place], [place] [phone] Galina Arrington MD [address] [place], [place] [phone] Med Refill Social History Tobacco Use Types [...] MG tablet [id number] - [address] AT [facility] documented in this encounter Plan of Treatment Not on file documented as of this encounter Visit Diagnoses Not on filedocumented in this encounter Additional Health Concerns Assessment Noted Time PHQ-9 Depression Total Score: 0 02/07/20 25 4:18 PM EDT documented as of this encounter Care Teams Fire Inspector Relationship Specialty Start Date End Date Galina Arrington MD [address] [place] [address] PCP - General Family Medicine 08/31/20 documented as of this encounter
--- OUTSIDE RECORDS SUMMARY | 2025-05-21 16:12 | XMS_ITS | Encounter Summary ---
Author Organization [employer] Address [address] [facility] 7t [place] [address] Care Team Providers Care Weight Loss Counselor Name Role Phone Galina Arrington MD Primary Care Provider [phone] Encounter Details Date Type Department Care Team (Late st Contact Info) Description 09/17/2023 Telephone [facility] MEDICINE 230 [place], [place] [phone] Galina Arrington MD 230 [place], [place] [phone] Social History Tobacco Use Types Packs/Day Years [...] on filedocumented in this encounter Care Teams Weight Loss Counselor Relationship Specialty Start Date End Date Galina Arrington MD 230 [place] [address] PCP - General Family Medicine 08/31/20 documented as of this encounter
--- OUTSIDE RECORDS SUMMARY | 2025-05-21 16:12 | XMS_ITS | Encounter Summary ---
Author Organization [employer] Address 75 [facility] 7t [place] [address] Care Team Providers Care Fluorescent Lamp Replacer Name Role Phone Galina Arrington MD Primary Care Provider [phone] Reason for Visit * Reason Onset Date Comments Referral 01/01/2025 Encounter Details Date Type Department Care Team ([facility] st Contact Info) Description 01/01/2025 Telephone [facility] MEDICINE 230 [place], [place] [phone] Galina Arrington MD 230 [place], [place] [phone] Referral Social History Tobacco Use Types Packs/Day [...] 1:14 PM EDT TC placed to patient [phone] in regards to below message. Patient would like to be referred tocardiology (patient has been established with [facility] cardiology in the past however has not seen them in a while). Patient was seeing [facility] cardiology r/t CAD s/p cardiac catheterization . Please review and advise if agreeable to place referral to [facility] cardiology to re- establish care. * Telephone Encounter - Sung Ma - 01/01/2025 3:34 PM EDT Tc from patient requesting a referral to see a shuttle driver. Patient reports that it has been several years since last evaluation and mentions having a mallita (possible stent). documented in this encounter Plan of Treatment Not on file documented as of this encounter Visit Diagnoses Not on filedocumented in this encounter Care Teams Fluorescent Lamp Replacer Relationship Specialty Start Date End Date Galina Arrington MD [address] [place] [address] PCP - General Family Medicine 08/31/20 documented as of this encounter
--- OUTSIDE RECORDS SUMMARY | 2025-05-21 16:12 | XMS_ITS | Encounter Summary ---
Author Organization [employer] Address 75 [facility] 7t [place] [address] Care Team Providers Care Edge Cutting Machine Operator Name Role Phone Galina Arrington MD Primary Care Provider [phone] Reason for Visit * Reason Comments Med Refill Encounter Details Date Type Department Care Team ([facility] st Contact Info) Description 01/15/2024 Refill [facility] MEDICINE 230 [place], [place] [phone] Galina Arrington MD 230 [place], [place] [phone] Gastroesophageal reflux disease without esophagitis Social History [...] reflux documented in this encounter Care Teams Edge Cutting Machine Operator Relationship Specialty Start Date End Date Galina Arrington MD 230 [place] [address] PCP - General Family Medicine 08/31/20 documented as of this encounter
--- OUTSIDE RECORDS SUMMARY | 2025-05-21 16:12 | XMS_ITS | Encounter Summary ---
Author Organization [employer] Address [address] [facility] 7t [place] [address] Care Team Providers Care Picker And Sorter Load And Unload Name Role Phone Galina Arrington MD Primary Care Provider [phone] Encounter Details Date Type Department Care Team (Late st Contact Info) Description 03/21/2023 Orders Only [facility] MEDICINE 230 [place], [place] [phone] Galina Arrington MD 230 [place], [place] [phone] Social History Tobacco Use Types Packs/Day Years [...] on filedocumented in this encounter Care Teams Picker And Sorter Load And Unload Relationship Specialty Start Date End Date Galina Arrington MD 230 [place], [place] [phone] PCP - General Family Medicine 08/31/20 documented as of this encounter
== END 2025-05-21 13:17 | disposition home or self-care (01) ==
LOC: HO.US 13:16
PROVIDERS: PCP General Practice; Visit Provider General Practice
DX: N20.0 Calculus of kidney (principal)
CPT/HCPCS: 76775

== ENCOUNTER → 2025-05-21 13:34 | Outpatient (BNV) | payer OTHER, SELFPAY | PROVIDERS: PCP General Practice; Visit Provider Radiology Diagnostic Radiology | DX: N20.0 Calculus of kidney (principal) | CPT/HCPCS: 76775 ==

== ENCOUNTER 2025-05-29 13:30 | Outpatient (REF) | payer OTHER, SELFPAY ==
--- OUTSIDE RECORDS SUMMARY | 2025-05-29 15:33 | XMS_ITS | Encounter Summary ---
Author Organization [employer] Address [address] [facility] 7t [place] [address] Care Team Providers Care Guideman Name Role Phone Galina rArington MD Primary Care Provider [phone] Encounter Details Date Type Department Care Team (Late st Contact Info) Description 09/17/2023 Telephone [facility] MEDICINE 230 [place], [place] [phone] Galina Arrington MD 230 [place], [place] [phone] Social History Tobacco Use Types Packs/Day Years [...] Care Team (Late st Contact Info) Description 08/21/2025 3:45 PM EST Office Visit [facility] MEDICINE 230 [place] [address] Galina Arrington MD 230 [place] [address] 10/06/2025 2:30 PM EDT Office Visit [facility] OPTOMETRY [address] [place] [address] Jazmin Santiago, OD [address] [place] [address] documented as of this encounter Visit Diagnoses Not on filedocumented in this encounter Care Teams Guideman Relationship Specialty Start Date End Date Galina Arrington MD [address] [place] [address] PCP - General Family Medicine 08/31/20 documented as of this encounter
--- OUTSIDE RECORDS SUMMARY | 2025-05-29 15:33 | XMS_ITS | Encounter Summary ---
Author Organization [employer] Address [address] [facility] 7t [place] [address] Care Team Providers Care Radiographic Technologist Name Role Phone Galina Arrington MD Primary Care Provider [phone] Encounter Details Date Type Department Care Team (Late st Contact Info) Description 01/11/2024 Orders Only [facility] MEDICINE 230 [place], [place] [phone] Galina Arrington MD 230 [place], [place] [phone] Social History Tobacco Use Types Packs/Day Years [...] Description 08/21/2025 3:45 PM EST Office Visit [facility] MEDICINE 230 [place] [address] Galina Arrington MD 230 [place] [address] 10/06/2025 2:30 PM EDT Office Visit [facility] OPTOMETRY [address] [place] [address] Jazmin Santiago, OD [address] [place] [address] documented as of this encounter Visit Diagnoses Not on filedocumented in this encounter Care Teams Radiographic Technologist Relationship Specialty Start Date End Date Galina Arrington MD [address] [place] [address] PCP - General Family Medicine 08/31/20 documented as of this encounter
--- OUTSIDE RECORDS SUMMARY | 2025-05-29 15:33 | XMS_ITS | Encounter Summary ---
Author Organization [employer] Address [address] [facility] 7t [place] [address] Care Team Providers Care Medical Billing Specialist Name Role Phone Galina Arrington MD Primary Care Provider [phone] Reason for Visit * Reason Comments Med Refill Encounter Details Date Type Department Care Team ([facility] st Contact Info) Description 01/15/[address] [facility] MEDICINE 230 [place], [place] [phone] Galina Arrington MD 230 [place], [place] [phone] Gastroesophageal reflux disease without esophagitis Social History [...] Description 08/21/2025 3:45 PM EST Office Visit [facility] MEDICINE [address] [place] [address] Galina Arrington MD 230 [place] [address] 10/06/2025 2:30 PM EDT Office Visit [facility] OPTOMETRY [address] [place] [address] Jazmin Santiago, OD [address] [place] [address] documented as of this encounter Visit Diagnoses Diagnosis Gastroesophageal reflux disease without esophagitis Esophageal reflux documented in this encounter Care Teams Medical Billing Specialist Relationship Specialty Start Date End Date Galina Arrington MD [address] [place] [address] PCP - General Family Medicine 08/31/20 documented as of this encounter
--- OUTSIDE RECORDS SUMMARY | 2025-05-29 15:33 | XMS_ITS | Encounter Summary ---
Author Organization [employer] Address [address] [facility] 7t [place] [address] Care Team Providers Care Matrix Supervisor Name Role Phone Galina Arrington MD Primary Care Provider [phone] Encounter Details Date Type Department Care Team (Late st Contact Info) Description 01/30/2024 Telephone [facility] MEDICINE 230 [place], [place] [phone] Galina Arrington MD 230 [place], [place] [phone] Social History Tobacco Use Types Packs/Day Years [...] pt stating they've been receiving call but health technical writer doesn't see anything documented. documented in this encounter Plan of Treatment Upcoming Encounters Date Type Department Care Team (Late st Contact Info) Description 08/21/2025 3:45 PM EST Office Visit [facility] MEDICINE [address] [place] [address] Galina Arrington MD 230 [place] [address] 10/06/2025 2:30 PM EDT Office Visit [facility] OPTOMETRY [address] [place] [address] Jazmin Santiago, OD [address] [place] [address] documented as of this encounter Visit Diagnoses Not on filedocumented in this encounter Care Teams Matrix Supervisor Relationship Specialty Start Date End Date Galina Arrington MD 230 [place] [address] PCP - General Family Medicine 08/31/20 documented as of this encounter
--- OUTSIDE RECORDS SUMMARY | 2025-05-29 15:34 | XMS_ITS | Encounter Summary ---
Author Organization [employer] Address 75 [facility] 7t [place] [address] Care Team Providers Care Soft Metals Hand Engraver Name Role Phone Galina Arrington MD Primary Care Provider [phone] Reason for Visit * Reason Onset Date Comments Created in Error 04/03/2024 Encounter Details Date Type Department Care Team ([facility] st Contact Info) Description 04/03/2024 Telephone [facility] MEDICINE 230 [place], [place] [phone] Galina Arrington MD 230 [place], [place] [phone] Created in Error Social History Tobacco Use [...] Description 08/21/2025 3:45 PM EST Office Visit [facility] MEDICINE 230 [place] [address] Galina Arrington MD 230 [place] [address] 10/06/2025 2:30 PM EDT Office Visit [facility] OPTOMETRY [address] [place] [address] Jazmin Santiago, OD [address] [place] [address] documented as of this encounter Visit Diagnoses Not on filedocumented in this encounter Care Teams Soft Metals Hand Engraver Relationship Specialty Start Date End Date Galina Arrington MD 230 [place] [address] PCP - General Family Medicine 08/31/20 documented as of this encounter
--- OUTSIDE RECORDS SUMMARY | 2025-05-29 15:34 | XMS_ITS | Encounter Summary ---
Author Organization [employer] Address [address] [facility] 7t [place] [address] Care Team Providers Care Pain Medicine Physician Name Role Phone Galina Arrington MD Primary Care Provider [phone] Encounter Details Date Type Department Care Team (Late st Contact Info) Description 05/27/2025 Orders Only [facility] MEDICINE 230 [place], [place] [phone] Galina Arrington MD 230 [place], [place] [phone] Type 2 diabetes mellitus with hyperglycemia, without long-term current use of insulin (HCC) (Primary Dx) Social History Tobacco Use Types [...] Description 08/21/2025 3:45 PM EST Office Visit [facility] MEDICINE 230 [place] [address] Galina Arrington MD [address] [place] [address] 10/06/2025 2:30 PM EDT Office Visit [facility] OPTOMETRY [address] [place] [address] Jazmin Santiago, OD [address] [place] [address] Scheduled Orders Name Type Priority Associated Diagnoses Orde r Schedule Hemoglobin A1c Lab Routine Type 2 diabetes mellitus with hyperglycemia, without long-term current use of insulin (HCC) Expected: 05/27/2025 (Approximate), Expires: 05/27/2026 documented as of this encounter Visit Diagnoses Diagnosis Type 2 diabetes mellitus with hyperglycemia, without long-term current use of insulin (HCC)- Primary documented in this encounter Additional Health Concerns Assessment Noted Time PHQ-9 Depression Total Score: 0 02/07/20 25 4:18 PM EDT documented as of this encounter Care Teams Pain Medicine Physician Relationship Specialty Start Date End Date Galina Arrington MD [address] [place] [address] PCP - General Family Medicine 08/31/20 documented as of this encounter
--- OUTSIDE RECORDS SUMMARY | 2025-05-29 15:34 | XMS_ITS | Encounter Summary ---
Author Organization [employer] [facility] Address [address] [facility] 7t [place] [address] Care Team Providers Care Leg Assembler Name Role Phone Galina Arrington MD Primary Care Provider [phone] Reason for Visit * Reason Comments Med Refill Encounter Details Date Type Department Care Team ([facility] Contact Info) Description 12/19/2022 Refill [facility] MED[facility]INE [address] [place] [phone] Galina Arrington MD 230 [place], [place] [phone] Type 2 diabetes mellitus with other specified complication, without long-term current use of insulin ([facility]) Social History Tobacco Use Types [...] Upcoming Encounters Date Type Department Care Team ([facility] Contact Info) Description 08/21/2025 3:45 PM EST Office Visit [facility]ICINE 230 [place], [place] [phone] Galina Arrington MD 230 [place] [address] 10/06/2025 2:30 PM EDT Office Visit [facility] OPTOMETRY 267 [place], [place] [phone] Jazmin Santiago, OD [address] [place] [address] documented as of this encounter Visit Diagnoses Diagnosis Type 2 diabetes mellitus with other specified complication, without long-term current use of insulin (HCC) documented in this encounter Care Teams Leg Assembler Relationship Specialty Start Date End Date Galina Arrington MD 230 [place], [place] [phone] PCP - General Family Medicine 08/31/20 documented as of this encounter
--- OUTSIDE RECORDS SUMMARY | 2025-05-29 15:34 | XMS_ITS | Encounter Summary ---
Author Organization [employer] Address 75 [facility] 7t [place] [address] Care Team Providers Care Public Area Attendant Name Role Phone Galina Arrington MD Primary Care Provider [phone] Reason for Visit * Reason Comments Med Refill Encounter Details Date Type Department Care Team ([facility] st Contact Info) Description 08/25/2024 Refill [facility] MEDICINE 230 [place], [place] [phone] Galina Arrington MD 230 [place], [place] [phone] Oral lesion Social History Tobacco Use Types [...] Description 08/21/2025 3:45 PM EST Office Visit [facility] MEDICINE 230 [place] [address] Galina Arrington MD 230 [place] [address] 10/06/2025 2:30 PM EDT Office Visit [facility] OPTOMETRY [address] [place] [address] Jazmin Santiago, OD [address] [place] [address] documented as of this encounter Visit Diagnoses Diagnosis Oral lesion Other and unspecified diseases of the oral soft tissues documented in this encounter Care Teams Public Area Attendant Relationship Specialty Start Date End Date Galina Arrington MD [address] [place] [address] PCP - General Family Medicine 08/31/20 documented as of this encounter
--- OUTSIDE RECORDS SUMMARY | 2025-05-29 15:34 | XMS_ITS | Encounter Summary ---
Author Organization [employer] Address [address] [facility] 7t [place] [address] Care Team Providers Care Furnace Charger Name Role Phone Galina Arrington MD Primary Care Provider [phone] Reason for Visit * Reason Onset Date Comments Durable Medical Equipment 05/28/2025 Encounter Details Date Type Department Care Team (Late st Contact Info) Description 05/28/[address] [facility] MEDICINE 230 [place], [place] [phone] Galina Arrington MD 230 [place], [place] [phone] Durable Medical Equipment Social History Tobacco Use Types Packs/Day Years [...] encounter Miscellaneous Notes * Telephone Encounter - Roni Lazar - 05/28/2025 11:17 AM EST Tc from pt requesting DME order for a electric recliner Contact pt at [phone] (moldovan) documented in this encounter Plan of Treatment Upcoming Encounters Date Type Department Care Team (Late st Contact Info) Description 08/21/2025 3:45 PM EST Office Visit [facility] MEDICINE [address] [place] [address] Galina Arrington MD [address] [place] [address] 10/06/2025 2:30 PM EDT Office Visit [facility] OPTOMETRY [address] [place] [address] Jazmin Santiago, OD [address] [place] [address] documented as of this encounter Visit Diagnoses Not on filedocumented in this encounter Additional Health Concerns Assessment Noted Time PHQ-9 Depression Total Score: 0 02/07/20 25 4:18 PM EDT documented as of this encounter Care Teams Furnace Charger Relationship Specialty Start Date End Date Galina Arrington MD [address] [place] [address] PCP - General Family Medicine 08/31/20 documented as of this encounter
--- OUTSIDE RECORDS SUMMARY | 2025-05-29 15:34 | XMS_ITS | Clinical Summary ---
Author Organization [facility] Address [address] [place] [address] Phone Care Team Providers Care Poolroom/Poolhall Manager Name Role Phone Galina Arrington MD Primary Care Provider [phone] Allergies Active Allergy Reactions Criticality Noted Date Comments [place] Swelling High 05/12/2025 States facial blisters Penicillin G Swelling High 05/06/2025 Medications omeprazole (PriLOSEC) [address] capsule Take 1 capsule (20 mg total) by mouth 1 (one) time each day. 4 Active metFORMIN (GLUCOPHAGE) 500 mg tablet Take 1 tablet (500 mg total) by mouth 1 (one) time each day with breakfast. 0 Active fluticasone propionate (FLONASE) 50 mcg/actuation nasal spray Administer 2 sprays into each nostril 1 (one) time each day. Active albuterol HFA (ProAir HFA) 90 mcg/actuation inhaler Inhale by mouth every 4 (four) hours if needed. 4 Active ipratropium-alb uteroL (DUONEB) 0.5-2.5 mg/3 mL nebulizer solution Inhale 3 mL by mouth 1 (one) time each day if needed. Active cyclobenzaprine (FLEXERIL) 10 mg tablet Take 1 tablet (10 mg total) by mouth at bedtime. 4 Active EPINEPHrine (EpiPen 2-Chester) 0.3 mg/0.3 mL injection Inject 0.3 mL (0.3 mg total) as directed 1 (one) time. Active isosorbide mononitrate (IMDUR) 60 mg 24 hr tablet Take 1 tablet (60 mg total) by mouth 1 (one) time each day. Active rosuvastatin (CRESTOR) 40 mg tablet Take 1 tablet (40 mg total) by mouth 1 (one) time each day. Active senna (SENOKOT) 8.6 mg tablet Take 1 tablet (8.6 mg total) by mouth 1 (one) time each day if needed. Active cetirizine (ZyrTEC) 10 mg tablet Take 1 tablet (10 mg total) by mouth 1 (one) time each day. 05/12/20 25 Discontin ued(Stop Taking at Discharge ) Active Problems No known active problems Encounters Date Type Department Care Team Description 05/12/2025 7:39 AM EDT Anesthesia Event [facility] OR [address] [place] [phone] Wilfredo Nolan MD 05/12/2025 7:30 AM EDT - 05/12/2025 1:00 PM EDT Surgery [facility] OR [address] [place] [phone] Love Chairez MD FACELIFT [[id number] (CPT )] 05/12/2025 6:08 AM EDT - 05/12/2025 2:16 PM EDT Hospital Encounter [facility] OR [address] [place] [phone] Love Chairez MD Discharge Disposition: Home or Self Care from Last 3 Months Surgical History Surgery Date Site/Laterality Comments KIDNEY STONE SURGERY CARDIOVERSION TUBAL LIGATION CORONARY ANGIOPLASTY WITH STENT PLACEMENT Medical History Medical History Date Comments Hyperlipidemia Hypertension Heart disease cardiac stents Asthma Diabetes mellitus ([facility] V24, [facility] V28) Dizziness GERD (gastroesophageal reflux disease) Arthritis Joint pain Social History Tobacco Use Types Packs/Day Years Used Date Smoking Tobacco: Former Cigarettes Smokeless Tobacco: Never Tobacco Cessation:Counseling Given: Not Answered Alcohol Use Standard Drinks/Week Comments Never 0 (1 standard drink = 0.6 oz pur e alcohol) Interpersonal Safety Answer Date Record ed Physical Abuse Unrecognized value 05/12/2025 Verbal Abuse Unrecognized value 05/12/2025 Comments Unknown Sex and Gender Information Value Date Recorded Sex Assigned at Not on file Legal Sex Female 2:10 PM EST Gender Identity Not on file Sexual Orientation Not on file Obstetrics History Last Filed Vital Signs Vital Sign Reading Time Taken Comments Blood Pressure 114/51 05/12/2025 12:42 PM EDT Pulse 76 05/12/2025 12:42 PM EDT Temperature 36.1 C (97 F) 05/12/2025 12:42 PM EDT Respiratory Rate 16 05/12/2025 12:42 PM EDT Oxygen Saturation 93% 05/12/2025 12:42 PM EDT Inhaled Oxygen Concentration - - Weight 69.9 kg (154 lb) 05/12/2025 6:47 AM EDT Height 152.4 cm (5') 05/12/2025 6:47 AM EDT Body Mass Index 30.08 05/12/2025 6:47 AM EDT Plan of Treatment Health Maintenance Due Date Last Done Comments Breast Cancer Screening 1955 Colorectal Cancer Screening: Colonoscopy 1955 Diabetes: Annual Foot Exam 10/12/1967 Diabetes: Annual Retina Eye Exam 10/12/1967 RSV Immunization Adult Patients (1 - Risk 50-74 years 1-dose series) 10/12/2007 Zoster Vaccines (2 of 2) 06/08/2020 04/13/2020 DTaP,Tdap,and Td Vaccines (3 - Td or Tdap) 08/29/2022 08/29/2012, 10/25/2004 Depression Screening 07/23/2024 COVID-19 Vaccine (3 - 2024- season) 2025 07/10/2022, 11/13/2020 Influenza Vaccine (#1) 2025 , 06/16/2023, 07/10/2022, Additional history exists Diabetes: Annual Urine Albumin-Creatinine Ratio (uACR) 05/12/2025 Osteoporosis Screening (Bone Density Screening) 05/12/2025 Social Influencers of Health Screening 05/12/2025 Diabetes: Blood Sugar Control Test (HGBA1C) 10/18/2025 04/20/2025, 02/06/2025 Diabetes: Annual GFR (Glomerular Filtration Rate) 04/20/2026 04/20/2025 Hypertension/CHF/CAD Annual BMP Blood Test 04/20/2026 04/20/2025 Falls Risk Assessment 05/12/2026 05/12/2025 Cholesterol Screening (Lipid Panel) 07/29/2029 07/29/2024 Pneumococcal Vaccine: 50+ Years Completed 01/10/2022, 07/05/2006 Hepatitis C Screening Completed 04/20/2025 HIB Vaccines [...] to complete this topic RSV Immunization Patients Under 20 months Aged Out No longer eligible based on patient's age to complete this topic Varicella Vaccines Aged Out No longer eligible based on patient's age to complete this topic Goals Goal Patient Goal Type Associated Problems Recent Progress Patient-Stated? Author Autogenerat ed Goal Care Plan Autogenerated Problem No Kiel Cortez Procedures Procedure Name Priority Date/Time Associated Diagnosis Comments TH AN ENDOTRACHEAL(NO CHARGE) Routine 05/12/2025 8:21 AM EDT MN RHYTIDECTOMY FOREHEAD 05/12/2025 7:42 AM EDT Encounter for cosmetic surgery Case Notes CC, HEADLIGHT PROCEDURAL ECG Routine 05/12/2025 6:28 AM EDT POCT GLUCOSE BLOOD Routine 05/12/2025 6: 25 AM EDT from Last 3 Months Results * TH AN ENDOTRACHEAL(NO CHARGE) (05/12/2025 8:21 AM EDT) Narrative Wilfredo Nolan MD - 05/12/2025 8:21 AM EDT Wilfredo Nolan MD 05/12/2025 8:22 AM General Information and Staff Patient location during procedure: OR Performed by: Wilfredo Nolan MD Authorized by: Wilfredo Nolan MD Intubation Airway not difficult Reason: elective Final Airway Details Successful airway: ETT Successful intubation technique: direct laryngoscopy Blade: [place] Blade size: #3 ETT size (mm): 7.0 Cormack-Lehane Classification: grade I - full view of glottis Placement verified by: capnometry Measured from: lips Final airway type: endotracheal airway Indications and Patient Condition Preoxygenated: yesSoft Tissue Damage: No Dentition Unchanged: Yes Patient position: neutral Mask difficulty assessment: 1 - vent by mask us Wilfredo Nolan MD ANESTHESIA ORDERABLES Final R esult * ECG 12 lead - Procedural (No Charge) (05/12/2025 6:28 AM EDT) Ventricular Rate ECG 75 BPM GEMUSE Atrial Rate 74 BPM GEMUSE P-R Interval 176 ms GEMUSE QRS Duration 88 ms GEMUSE Q-T Interval 400 ms GEMUSE QTc 446 ms GEMUSE R [place] 9 degrees GEMUSE T [place] 36 degrees GEMUSE ECG Interpretation Normal sinus rhythm Normal ECG No previous ECGs available Confirmed by MD [place], [facility] ([id number] on 05/12/2025 9:17:42 PM GEMUSE 05/12/2025 6:28 AM EDT 05/12/2025 9:17 PM EDT us Wilfredo Nolan MD ECG ORDERABLES Final Result Performing Organization Address City/[facility]/ZIP Co de Phone Number GEMUSE * (ABNORMAL) POCT Glucose, blood (05/12/2025 6:25 AM EDT) Glucose POCT 157(H) 70 - 100 mg/dL 05/12/2025 6:25 AM EDT [facility] Blood Capillary blood specimen / Unknown 05/12/2025 6:25 AM EDT 05/12/2025 6:26 AM EDT Love Chairez MD LAB POINT OF CARE T EST DOCKED DEVICE UNSOLICITED RESULTS Final Result Performing Organization Address City/[facility]/ZIP Co de Phone Number [facility] [address] [place] [address], from Last 3 Months Additional Health Concerns Active Problems Noted Date Diagnosed Date Autogenerated Problem 05/13/2025 Advance Directives * Full Code - Default (Latest Code Status on File) Date Activated Date Inactivated Comments 05/12/2025 6:48 AM 05/12/2025 4:17 PM This is or marcello is used when code status has not been discussed with the patient, or code status is otherwise unknown/unconfirmed To update the patient's code status, place a code status order. Do not modify or discontinue any currently active code status orders. Care Teams Poolroom/Poolhall Manager Relationship Specialty Start Date End Date Galina Arrington MD [address] [place] [address] PCP - General Cotton Farmworker 05/12/25
--- OUTSIDE RECORDS SUMMARY | 2025-05-29 15:34 | XMS_ITS | Encounter Summary ---
Author Organization [facility] Address [address] [place] [address] Care Team Providers Care Asphalt Paver Operator Name Role Phone Galina Arrington MD Primary Care Provider [phone] Reason for Visit * Reason Onset Date Comments No Show 12/22/2022 Encounter Details Date Type Department Care Team ([facility] st Contact Info) Description 12/22/2022 Telephone [facility] MEDICINE [address] [place], [place] [phone] Galina Arrington MD [address] [place], [place] [phone] No Show Social History Tobacco Use Types [...] a PAP Exam Please contact pt at [phone] Yi Speaker documented in this encounter Plan of Treatment Upcoming Encounters Date Type Department Care Team (Late st Contact Info) Description 08/21/2025 3:45 PM EST Office Visit [facility] [address] [place] [address] Galina Arrington MD [address] [place] [address] 10/06/2025 2:30 PM EDT Office Visit [facility] OPTOMETRY [address] [place] [address] Jazmin Santiago, OD [address] [place] [address] documented as of this encounter Visit Diagnoses Not on filedocumented in this encounter Care Teams Asphalt Paver Operator Relationship Specialty Start Date End Date Galina Arrington MD [address] [place] [address] PCP - General Family Medicine 08/31/20 documented as of this encounter
--- OUTSIDE RECORDS SUMMARY | 2025-05-29 15:34 | XMS_ITS | Clinical Summary ---
Author Organization [employer] Address [address] [facility] 7t [place] [address] Care Team Providers Care Airline Reservation Agent Name Role Phone Galina Arrington MD Primary Care Provider [phone] Allergies Active Allergy Reactions Criticality Noted Date Comments [place] [employer] 01/15/2017 Other reaction(s): hives Loratadine 10/18/2010 [...] complication, without long-term current use of insulin ([facility]) Use to monitor blood glucose twice daily 1 kit 4 Active OneTouch Delica Lancets 33G miscIndications: Type 2 diabetes mellitus with other specified complication, without long-term current use of insulin ([facility]) Use to test blood sugar 2 times daily 100 each 11 4 Active Bisacodyl EC 5 MG EC tablet TAKE 4 TABLETS BY MOUTH AT NOON THE DAY BEFORE COLONOSCOPY 4 Active gabapentin (Neurontin) 300 MG capsuleIndicatio ns:Type 2 diabetes mellitus with other specified complication, without long-term current use of insulin ([facility]),Multiple joint pain Take 1 capsule (300 mg) by mouth 3 times daily. 90 capsule 11 5 07/29/19 26 Active aspirin 81 MG chewable tabletIndication s:Type 2 diabetes mellitus with other specified complication, without long-term current use of insulin ([facility]) Chew 1 tablet (81 mg) Once per day. 90 tablet 3 5 07/29/19 26 Active docusate sodium (Colace) 100 MG capsuleIndicatio [...] each 2 times daily. 1 kit 5 01/16/20 26 Active simethicone (Mylicon) 80 MG chewable tablet CHEW AND SWALLOW 1 TABLET BY MOUTH FOUR TIMES DAILY AFTER MEALS AND BEFORE BEDTIME NEEDED FOR GAS 120 tablet 3 5 Active olmesartan (Benicar) 5 MG tabletIndication s:Type 2 diabetes mellitus with other specified complication, without long-term current use of insulin ([facility]),Primary hypertension Take 1 tablet (5 mg) by mouth Once per day. For blood pressure and kidney protection 90 tablet 3 5 02/09/20 26 Active glipiZIDE XL (Glucotrol XL) 10 MG 24 hr tabletIndication s:Type 2 diabetes mellitus with other specified complication, without long-term current use of insulin ([facility]) Take 1 tablet (10 mg) by mouth Once per day. Do not crush, chew, or split. 90 tablet 3 5 02/09/20 26 Active cyclobenzaprine (Flexeril) 10 MG tablet TAKE [...] per week. 2 mL 2 5 Active Active Problems Problem Noted Date Diagnosed Date [...] Exam: Normal today Eye Exam: Referral to [facility] vision palced Statin: Yes ASA: Yes ERICK/ARB: [...] Constipation 05/26/2015 Coronary artery disease invo lving [place] coronary artery of [place] heart without angina pectoris 05/26/2015 Gastroesophageal reflux [...] Encounters Date Type Department Care Team Description 05/28/2025 Telephone [facility] MEDICINE [address] [place] [address] Galina Arrington MD Durable Medical Equipment 05/27/2025 Orders Only [facility] MEDICINE [address] [place] [address] Galina Arrington MD Type 2 diabetes mellitus with hyperglycemia, without long-term current use of insulin (HCC) (Primary Dx) 05/25/2025 Telephone [facility] MEDICINE [address] [place] [address] Galina Arrington MD Telephone Call 05/25/2025 Telephone [facility] MEDICINE [address] [place] [address] Galina Arrington MD Lab Orders 05/21/2025 Orders Only [facility] MEDICINE [address] [place] [address] Galina Arrington MD 05/01/2025 Telephone [facility] MEDICINE [address] [place] [phone] Trini Irene RN Paperwork/Forms 04/17/2025 2:45 PM EDT Office Visit [address] [address] Galina Arrington MD Pre-op evaluation (Primary Dx); Primary hypertension; Gastroesophageal reflux disease without esophagitis; Type 2 diabetes mellitus with other specified complication, without long-term current use of insulin ([facility]); Mild intermittent asthma without complication; Overweight (BMI 25.0-29.9); Pulmonary emphysema, unspecified emphysema type ([facility]) 04/17/2025 Travel 04/15/[address] [address] Galina Arrington MD Med Refill 04/15/[address] [address] Galina Arrington MD chart prep 03/30/2025 Orders Only [facility] MEDICINE [address] [place] [address] Treva Ingram MD 03/27/2025 Telephone [facility] MEDICINE [address] [place] [address] Galina Arrington MD telephone call 03/12/2025 Refill [facility] MEDICINE [address] [place] [phone] Galina Arrington MD Oral lesion 02/28/[address] [address] Galina Arrington MD 02/26/2025 Orders Only [facility] External Provider, [facility] from Last 3 Months Immunizations Immunization [...] 04/17/2025 3:50 PM EDT Plan of Treatment Upcoming Encounters Date Type Department Care Team (Late st Contact Info) Description 08/21/2025 3:45 PM EST Office Visit [facility] MEDICINE [address] [place] [address] Galina Arrington MD [address] [place] [address] 10/06/2025 2:30 PM EDT Office Visit [facility] OPTOMETRY [address] [place] [address] Jazmin Santiago, OD [address] [place] [address] Health Maintenance Due Date Last Done Comments [...] 2025 07/10/2022, 07/18/2021, 01/05/2021, Additional history exists Diabetes: Hemoglobin A1C 07/20/2025 [...] 02/16/2023, 04/13/2020 Hepatitis C Screening Completed 04/20/2025 Influenza Vaccine Completed 04/21/2025, , 06/16/2023, Additional history exists HIB Vaccines Aged Out [...] Routine 01/17/2023 2:30 PM EDT Defective dental shinto COMPREHENSIVE ORAL EVALUATION - NEW OR ESTABLISHED PATIENT Routine 01/17/2023 2:30 PM EDT Defective dental shinto HM COLONOSCOPY Routine 10/26/2015 9:21 AM EDT from Last 3 Months or Most Recently Relevant to Health Maintenance Results * US Renal Complete (05/21/2025 1:34 PM EDT) Anatomical Region Laterality Modality Kidney Ultrasound 05/21/2025 1:34 PM EDT Narrative 05/21/2025 2:01 PM EDT [place] [address] Ultrasound Report Signed Patient: Prisca Spence MR#: [id number] : 1955 Acct:[id number] Age/Sex: 69 / F ADM Date: 05/21/25 Loc: HO.US Attending Dr: Galina Arrington MD Ordering Physician: Galina Arrington Date of Service: 05/21/25 Procedure(s): US renal BI Accession Number(s): [id number] cc: Galina Arrington Reason for Exam: KIDNEY [...] 05/21/25 1358 DD/ 1334 TD/TT: 05/21/25 1342 Home Health Travel Pt: Procedure Note Donotuseinterpreter, Image - 05/21/2025 [place] [address] Ultrasound Report Signed Patient: Britney Spence#: [id number] : 8Acct:[id number] Age/Sex: 69 / FADM Date: 05/21/25 Loc: HO.US Attending Dr: Galina Arrington MD Ordering Physician: Galina Arrington Date of Service: 05/21/25 Procedure(s): US renal BI Accession Number(s): [id number] cc: Galina Arrington Reason for Exam: KIDNEY [...] 05/21/25 1358 DD/ 1334 TD/TT: 05/21/25 1342 Home Health Travel Pt: us Galina Arrington MD IMG US PROCEDURES Final Result * ECG 12 lead (04/21/2025 7:53 AM EDT) Narrative Galina Arrington MD - 04/21/2025 7:53 AM EDT Normal sinus rhythm, no ST-T segment changes Ventricular rate 77 Galina Arrington MD ECG ORDERABLES Final Result * CBC auto differential (04/20/2025 11:25 AM EDT) White Blood Count 6.4 4.8 - 10.8 X10*3/uL [facility] Red Blood Count 4.69 4.20 - 5.50 X10*6/uL [facility] Hemoglobin 13.4 12.0 - 16.0 g/dl [facility] Hematocrit 41.9 37.0 - 47.0 % [facility] Mean Corpuscular Volume 89.3 80.0 - 98.0 fL [facility] Mean Corpuscular Hemoglobin 28.6 27.0 - 33.0 pg [facility] Mean Corpuscular HGB Conc 32.0 31.0 - 35.0 g/dl [facility] Red Cell Distribution Width 14.5 11.0 - 16.0 % [facility] Platelet Count 216 160 - 400 X10*3/uL [facility] Mean Platelet Volume 11.8 9.4 - 12.3 fL [facility] Neutrophils Percent Auto 57.1 45 - 73 % [facility] Imm Gran Pct Auto 0.2 0.0 - 0.4 % [facility] Lymphocytes Percent Auto 34.5 20 - 40 % [facility] Monocytes Percent Auto 6.1 2 - 11 % [facility] Eosinophils Percent Auto 1.6 0 - 4 % [facility] Basophils Percent Auto 0.5 0 - 2 % [facility] NRBC Pct Auto 0.0 0.0 - 0.2 /100WBC [facility] Neutrophils Absolute Auto 3.7 2.0 - 8.3 x10*3/uL [facility] Imm Gran Abs Auto 0.01 0.00 - 0.03 X10*3/uL [facility] Lymphocytes Absolute Auto 2.2 1.2 - 4.9 X10*3/uL [facility] Monocytes Absolute Auto 0.4 0.1 - 1.2 X10*3/uL [facility] Eosinophils Absolute Auto 0.1 0.0 - 0.4 X10*3/uL [facility] Basophils Absolute Auto 0.0 0.0 - 0.2 X10*3/uL [facility] NRBC Abs Auto 0.000 0.0 - 0.012 X10*3/uL [facility] Blood Venous blood specimen / Unknown 04/20/2025 11:25 AM EDT 04/20/2025 1:19 PM EDT Galina Arrington MD LAB BLOOD ORDERABLES Final Res ult [facility] [address] [place] [phone] * Hepatitis C Antibody with Reflex to HCV, RNA, Quantitative, Real-Time PCR (04/20/2025 11:25 AM EDT) Hepatitis C Antibody Nonreactive Nonreactive [facility] Comment:Antibodies to HCV no t detected; does not exclude early acuteHCV infection. Blood Venous blood specimen / Unknown 04/20/2025 11:25 AM EDT 04/20/2025 1:19 PM EDT Galina Arrington MD LAB BLOOD ORDERABLES Final Res ult Performing Organization Address [facility] Co de Phone Number [facility] [address] [place] [address] [phone] * (ABNORMAL) Hemoglobin A1c (04/20/2025 11:25 AM EDT) Hemoglobin A1c 9.9(H) <6.0 % [facility] Comment:Hemoglobin A1C Refer ence Range Adults: 4.8 - 6.0 % Non diabetic: < 6.0 % Goal: < 7.0 %Additional Action Suggested: > 8.0 %Note: Hemoglobin A1c results are invalid for patients with abnormal amounts of HbF. Blood transfusions may impact the HbA1c concentration in the patient sample. Estimated Average Glucose 237 mg/dL [facility] Comment:eAG = Estimated ave rage glucose which is %A1C expressed asaverage glucose, using the formula of the B0K-ZwgkgrcXflkvby Glucose study (ADAG), Diabetes Care, Vol.31,#8,Feb. 2007 Blood Venous blood specimen / Unknown 04/20/2025 11:25 AM EDT 04/20/2025 1:16 PM EDT Galina Arrington MD LAB BLOOD ORDERABLES Final Res ult Performing Organization Address [facility] Co de Phone Number [facility] [address] [place] [address] [phone] * (ABNORMAL) Comprehensive Metabolic Panel (04/20/2025 11:25 AM EDT) Sodium 140 135 - 145 mmol/L [facility] Potassium 4.8 3.3 - 5.1 mmol/L [facility] Chloride 104 96 - 108 mmol/L [facility] Carbon Dioxide 30(H) 22 - 29 mmol/L [facility] Anion Gap 11(L) 12 - 20 [facility] Urea Nitrogen (BUN) 21(H) 9 - 16 mg/dL [facility] Creatinine, Serum 0.66 0.5 - 1.4 mg/dL [facility] Estimated Glomerular Filt Rate >60 [facility] Comment:Chronic Kidney Disea se: Estimated GFR < 60 mL/min/1.96j5Eqeclx Kidney Disease: Estimated GFR < 15 mL/min/1.73m2 Glucose 189(H) 60 - 115 mg/dL [facility] Calcium 9.8 8.4 - 10.2 mg/dL [facility] Bilirubin, Total 0.4 0.0 - 1.0 mg/dL [facility] Aspartate Amino Transferase 25 5 - 31 U/L [facility] Alanine Aminotransferase 26 0 - 31 U/L [facility] Total Protein 7.7 6.5 - 8.0 g/dL [facility] Albumin Level 4.2 3.5 - 5.0 g/dL [facility] Alkaline Phosphatase 81 39 - 117 U/L [facility] Blood Venous blood specimen / Unknown 04/20/2025 11:25 AM EDT 04/20/2025 1:19 PM EDT us Galina Arrington MD LAB BLOOD ORDERABLES Final Res ult Performing Organization Address City/State/[facility] Co de Phone Number [facility] [address] [place] [phone] * MR Wrist w/o Contrast Right (02/28/2025 9:02 AM EDT) Anatomical Region Laterality Modality Upper Extremities, Wrist Right Magneti c Resonance 02/28/2025 9:02 AM EDT Narrative 02/28/2025 9:03 AM EDT [address] [address] Magnetic Resonance Report Signed Patient: Prisca Spence MR#: [id number] : 1955 Acct:[id number] Age/Sex: 69 / F ADM Date: 02/26/25 Loc: HO.MRI Attending Dr: Sejal Jin MD Ordering Physician: Sejal Jin MD Date of Service: 02/26/25 Procedure(s): MR wrist RT wo con Accession Number(s): [id number] cc: Galina Arrington; Sejal Jin MD CLINICAL [...] in OV> 02/28/25[address] DD/ 1 TD/TT: 02/28/25901 Home Health Travel Pt: Procedure Note Donotuseinterpreter, Image - 02/28/2025 [place] [address] Magnetic Resonance Report Signed Patient: Britney Spence#: [id number] : 8Acct:[id number] Age/Sex: 69 / FADM Date: 02/26/25 Loc: HO.MRI Attending Dr: Sejal Jin MD Ordering Physician: Sejal Jin MD Date of Service: 02/26/25 Procedure(s): MR wrist RT wo con Accession Number(s): [id number] cc: Galina Arrington; Sejal Jin MD CLINICAL [...] in OV> 02/28/25902 DD/ 1 TD/TT: 02/28/25901 Home Health Travel Pt: [facility] External Provider IMG MRI PROCEDURES Final Result * BI Mammogram Screening Tomosynthesis Bilateral (08/13/2024 2:45 PM EST) Anatomical Region Laterality Modality Breast Bilateral Mammography 08/13/2024 2:45 PM EST Narrative 08/22/2024 12:16 PM EST [address] [place], [place] [address] Mammography Report Signed Patient: Prisca Spence MR#: [id number] : 1955 Acct:[id number] Age/Sex: 68 / F ADM Date: 08/13/24 Loc: HO.MAMMO Attending Dr: Galina Arrington MD Ordering Physician: Galina Arrington Results: 2Benign F indings Date of Service: 08/13/24 Follow Up: 1 Year From [facility] ina Mammogram Procedure(s): MM tomosynthesis screening BI Accession Number(s): [id number] cc: Galina Arrington EXAMINATION: MM SCREENING DIGITAL [...] 08/22/24 1213 DD/ 1445 TD/TT: 08/13/24 1505 Home Health Travel Pt: Procedure Note Donotuseinterpreter, Image - 08/22/2024 [facility] [address] [place], [place] [address] Mammography Report Signed Patient: Britney Spence#: [id number] : 8Acct:[id number] Age/Sex: 68 / FADM Date: 08/13/24 Loc: .MAMMO Attending Dr: Galina Arrington MD Ordering Physician: Melida Arringtonults: 2[place] F indings Date of Service: 08/13/24Follow Up: 1 Year From Orig inal Mammogram Procedure(s): MM tomosynthesis screening BI Accession Number(s): [id number] cc: Galina Arrington EXAMINATION: MM SCREENING DIGITAL [...] Zulay Chris DO 08/22/2024 12:13 PM EST RP Dictated By: Zulay Chris DO Signed By: <Electronically signed by Zulay Chris DO in OV> 08/22/24 1213 DD/ 1445 TD/TT: 08/13/24 1505 Home Health Travel Pt: Galina Arrington MD IMG BI PROCEDURES Final Result * Albumin, Random Urine W/Creatinine (07/29/2024 11:20 AM EST) Creatinine, Urine 47.63 mg/dL [facility] Microalbumin Urine 12.0 mg/L [facility] Microalbum Creatinine Ratio Ur 25.1 <30 ug/mg cr [facility] Comment:Albumin/Creatinine R atio Reference Ranges: Normal: < 30 ug/mg creatinine Microalbuminuria: 30 - 300 ug/mg creatinineClinical Albuminuria: > 300 ug/mg creatinine Urine (Urine, Random) 07/29/2024 11:20 AM EST 07/29/2024 1:02 PM EST Galina Arrington MD LAB URINE ORDERABLES Final Res ult [facility] [address] [place] [phone] * (ABNORMAL) Lipid Panel, Standard (07/29/2024 11:20 AM EST) Triglycerides 220(H) <150 mg/dL [facility] Comment:Desirable Triglyceri de: less than 150 mg/dLBorderline High Triglyceride 150-199 mg/dLHigh Triglyceride: 200-499 mg/dLVery High Triglyceride: greater than or equal to 5OO mg/dL Cholesterol 176 <200 mg/dL [facility] Comment:Desirable Cholestero l: less than 200 mg/dLBorderline High Cholesterol: 200-239 mg/dLHigh Cholesterol: greater than 239 mg/dL LDL Cholesterol Calculated 77 <100 mg/dL [facility] Comment:Desirable LDL: less than 100 mg/dLNear Optimal/Above Optimal LDL: 110- 129 mg/dLBorderline High LDL: 130-159 mg/dLHigh LDL: 160-189 mg/dLVery High LDL: greater than or equal to 190 mg/dL HDL Cholesterol 55 >40 mg/dL [facility] Comment:Desirable HDL: great er than 40 mg/dL Note: This HDL assay may give artificially low results in patients with liver disease. Blood Venous blood specimen / Unknown 07/29/2024 11:20 AM EST 07/29/2024 1:03 PM EST us Galina Arrington MD LAB BLOOD ORDERABLES Final Res ult [facility] [address] [place] [phone] * HPV mRNA E6/E7 w/Reflex to HPV Genotypes 16, 18/45 (02/16/2023 3:33 PM EDT) HPV nRNA E6/E7 Not Detected Not Detected [facility] Comment:Methodology: Transcr iption-Mediated AmplificationThis assay detects E6/E7 viral messenger RNA (mRNA) from 14high-risk HPV types (16,18,31,33,35,39,45,51,52,56,58,59,66,68).Cervical sources are required for HPV testing.If a vaginal source from a patient who has had atotal hysterectomy with removal of cervix wassubmitted, please contact the testing laboratoryfor alternative testing options.For additional information, please refer tohttp://education.5skills/faq/THR345z5(This link if provided for information/educational purposes only.)THIS TEST WAS PERFORMED AT:[facility] [place] [phone] LADD MD HPV mRNA E6/E7 TNP [facility] HPV 16 RNA TNP [facility] HPV 18/45 RNA TNP [facility] 02/16/2023 3:33 PM EDT 02/20/2023 9:15 AM EDT us Galina Arrington MD LAB CYTOLOGY ORDERABLES Final Result [facility] [address] [place] [phone] * Pap Smear (02/16/2023 3:33 PM EDT) 02/16/2023 3:33 PM EDT 02/20/2023 9:15 AM EDT Narrative [facility] - 02/28/2023 1:40 PM EDT ----- ------- Name: Prisca Spence Age/Sex: 67/F : 1955 Unit#: [id number] Attend Dr: Galina Arrington Re02/16/23 Status: CHITO MCWILLIAMS Location: HO.HHCLNP Disch: ----- ------- SPEC : [id number] RECD: 02/20/23-914 STATUS: SJ RUIZ NUM: [id number] SHA: 02/16/23-1533 [facility] DR: Galina Arrington ENTERED: 02/20/23-1428 SP TYPE: Pap Smr OTHR DR: ORDERED: Pap Smear Interpretation Satisfactory for evaluation. Negative for intraepithelial lesion or malignancy. HPV mRNA E6/E7: NOT DETECTED This assay detects E6/E7 viral messenger RNA (mRNA) from 14 high-risk HPV types (16, 18, 31, 33, 35, 39, 45, 51, 52, 56, 58, 59, 66, 68) HPV testing performed by [employer] [facility], [place], [place]. See reference laboratory pion of the EMR for entire report. Clinical Information LMP: Unknown date Previous PAP test: 03/2020, NIL HPV neg Material Received ThinPrep-Cervical ----- ------- Signed (signature on file) ZOE Grider (ASCP) 02/28/23 1340 ----- ------- END OF REPORT Galina Arrington MD LAB CYTOLOGY ORDERABLES Final Result [facility] [address] [place] [phone] * Colonoscopy (10/26/2015) Colonoscopy Normal Normal Comment:repeat in 7 yrs us Roro Bedoya NP HEALTH MAINTENANCE Edited Result - Final from Last 3 Months or Most Recently Relevant to Health Maintenance Insurance [place] [id number] [place] [address] - [facility] N[facility] OPTIONS (HMO D-SNP) DENTAL-[place] ADULT Care Teams Airline Reservation Agent Relationship Specialty Start Date End Date Galina Arrington MD [address] [place] [phone] PCP - General Family Medicine 08/31/20
--- OUTSIDE RECORDS SUMMARY | 2025-05-29 15:34 | XMS_ITS | Encounter Summary ---
Author Organization [employer] Address [address] [facility] 7t [place] [address] Care Team Providers Care Manufacturing Engineering Intern Name Role Phone Galina Arrington MD Primary Care Provider Reason for Visit * Reason Onset Date Comments Telephone Call 05/25/2025 Encounter Details Date Type Department Care Team ([facility] st Contact Info) Description 05/25/2025 Telephone [facility] MEDICINE [address] [place], [place] [phone] Galina Arrington MD [address] [place], [place] [phone] Telephone Call Social History Tobacco Use Types Packs/Day Years [...] encounter Miscellaneous Notes * Telephone Encounter - Trini Irene RN - 05/27/2025 2:28 PM EST TC returned to pt and advised order has been placed. Pt. Will come to lab at earliest convenience * Telephone Encounter - Galina Arrington MD - 05/27/2025 1:33 PM EST Ordered A1C, thank you for telling her about her normal US * Telephone Encounter - Trini Irene RN - 05/27/2025 1:04 PM EST TC returned to pt. Pt. Reports dental procedure is all set to schedule aside from requiring an A1c less than 9. Last A1c was 9.9 on 04/20/25. Pt. Looking to repeat now. Advised pt. I would request repeat A1c order from PCP and call if order can be placed. Otherwise informed pt. Or normal renal US results. Thanks! * Telephone Encounter - Jacqueline Castañeda - 05/25/2025 3:55 PM EST Pt walked in requesting to have pre-op pt states she is having a dental procedure to get implants put in and needs lab work done. Pt states she dropped paper off in medical records. She will be having procedure done at [facility] their phone number is [phone]. Pt is also requesting that all refills due be sent to pharmacy. documented in this encounter Plan of Treatment Upcoming Encounters Date Type Department Care Team (Late st Contact Info) Description 08/21/2025 3:45 PM EST Office Visit [facility] MEDICINE [address] [place] [phone] Galina Arrington MD [address] [place] [address] 10/06/2025 2:30 PM EDT Office Visit [facility] OPTOMETRY [address] [place] [address] TarkaJazmin, OD [address] [place] [address] documented as of this encounter Visit Diagnoses Not on filedocumented in this encounter Additional Health Concerns Assessment Noted Time PHQ-9 Depression Total Score: 0 02/07/20 25 4:18 PM EDT documented as of this encounter Care Teams Manufacturing Engineering Intern Relationship Specialty Start Date End Date Galina Arrington MD [address] [place], [place] [phone] PCP - General Family Medicine 08/31/20 documented as of this encounter
--- OUTSIDE RECORDS SUMMARY | 2025-05-29 15:34 | XMS_ITS | Encounter Summary ---
Author Organization [email or web address] Address [address] [facility] 7t [place] [address] Care Team Providers Care Vegetable Cook Name Role Phone Galina Arrington MD Primary Care Provider [phone] Encounter Details Date Type Department Care Team (Late st Contact Info) Description 08/06/2024 Telephone [facility] MEDICINE [address], [place] [phone] Galina Arrington MD [address] [place], [place] [phone] Social History Tobacco Use Types Packs/Day Years [...] Description 08/21/2025 3:45 PM EST Office Visit [facility] MEDICINE [address] [place] [address] aGlina Arrington MD [address] [place] [address] 10/06/2025 2:30 PM EDT Office Visit [facility] OPTOMETRY [address] [place] [address] Jazmin aSntiago, OD [address] [place] [address] documented as of this encounter Visit Diagnoses Not on filedocumented in this encounter Care Teams Vegetable Cook Relationship Specialty Start Date End Date Galina Arrington MD [address] [place] [phone] PCP - General Family Medicine 08/31/20 documented as of this encounter
--- OUTSIDE RECORDS SUMMARY | 2025-05-29 15:34 | XMS_ITS | Encounter Summary ---
Author Organization [employer] Address 75 [facility] 7t [place] [address] Care Team Providers Care Social Media Marketing Manager Name Role Phone Galina Arrington MD Primary Care Provider [phone] Encounter Details Date Type Department Care Team (Late Contact Info) Description 11/28/2022 Orders Only [facility] MEDICINE [address] [place] [address] [phone] Treva Ingram MD [address] [place] [address] [phone] Social History Tobacco Use Types Packs/Day Years [...] Encounters Date Type Department Care Team (Late Contact Info) Description 08/21/2025 3:45 PM EST Office Visit [facility] MEDICINE [address] [place] [address] [phone] Galina Arrington MD [address] [place] [address] 10/06/2025 2:30 PM EDT Office Visit [facility] [address] [place], [place] [phone] Jazmin Santiago, OD [address] [place], [place] [phone] documented as of this encounter Visit Diagnoses Not on filedocumented in this encounter Care Teams Social Media Marketing Manager Relationship Specialty Start Date End Date Galina Arrington MD [address] [place] [address] [phone] PCP - General Family Medicine 08/31/20 documented as of this encounter
--- OUTSIDE RECORDS SUMMARY | 2025-05-29 15:34 | XMS_ITS | Encounter Summary ---
Author Organization [facility] Address [address] [facility] 7t [place] [address] Care Team Providers Care Film Flat Inspector Name Role Phone Galina Arrington MD Primary Care Provider [phone] Encounter Details Date Type Department Care Team (Late st Contact Info) Description 07/04/2022 Orders Only [facility] [address] [place] [address] Maritza Garcia LPN Social History Tobacco Use [...] Description 08/21/2025 3:45 PM EST Office Visit [facility] MEDICINE [address] [place] [address] Galina Arrington MD [address] [place] [address] 10/06/2025 2:30 PM EDT Office Visit [facility] OPTOMETRY [address] [place] [address] Jazmin Santiago OD [address] [place] [address] documented as of this encounter Visit Diagnoses Not on filedocumented in this encounter Care Teams Film Flat Inspector Relationship Specialty Start Date End Date Galina Arrington MD 230 [place] [address] PCP - General Family Medicine 08/31/20 documented as of this encounter
--- OUTSIDE RECORDS SUMMARY | 2025-05-29 15:34 | XMS_ITS | Encounter Summary ---
Author Organization [employer] Address 75 [facility] 7t [place] [address] Care Team Providers Care Pediatric Lpn Name Role Phone Galina Arrington MD Primary Care Provider [phone] Reason for Visit * Reason Onset Date Comments Lab Orders 05/25/2025 Encounter Details Date Type Department Care Team ([facility] st Contact Info) Description 05/25/2025 Telephone [facility] MEDICINE [address] [place], [place] [phone] Galina Arrington MD [address] [place], [place] [phone] Lab Orders Social History Tobacco Use Types Packs/Day Years [...] encounter Miscellaneous Notes * Telephone Encounter - Ward Temple - 05/25/2025 3:03 PM EST Tc from pt requesting a call back regarding results for the blood sugar. Contact pt at [phone] documented in this encounter Plan of Treatment Upcoming Encounters Date Type Department Care Team (Late st Contact Info) Description 08/21/2025 3:45 PM EST Office Visit [facility] MEDICINE [address] [place] [address] Galina Arrington MD [address] [place] [address] 10/06/2025 2:30 PM EDT Office Visit [facility] OPTOMETRY [address] [place] [address] Jazmin Santiago, OD [address] [place] [address] documented as of this encounter Visit Diagnoses Not on filedocumented in this encounter Additional Health Concerns Assessment Noted Time PHQ-9 Depression Total Score: 0 02/07/20 25 4:18 PM EDT documented as of this encounter Care Teams Pediatric Lpn Relationship Specialty Start Date End Date Galina Arrington MD [address] [place] [address] PCP - General Family Medicine 08/31/20 documented as of this encounter
--- OUTSIDE RECORDS SUMMARY | 2025-05-29 15:36 | XMS_ITS | Encounter Summary ---
Author Organization [employer] Address 75 [facility] 7t [place] [address] Care Team Providers Care Electrical Maintenance Engineer Name Role Phone Galina Arrington MD Primary Care Provider [phone] Reason for Visit * Reason Onset Date Comments Referral 01/01/2025 Encounter Details Date Type Department Care Team ([facility] st Contact Info) Description 01/01/2025 Telephone [facility] MEDICINE [address] [place], [place] [phone] Galina Arrington MD [address] [place], [place] [phone] Referral Social History Tobacco Use Types Packs/Day [...] 1:14 PM EDT TC placed to patient [phone] in regards to below message. Patient would like to be referred tocardiology (patient has been established with [facility] cardiology in the past however has not seen them in a while). Patient was seeing [facility] cardiology r/t CAD s/p cardiac catheterization . Please review and advise if agreeable to place referral to [facility] cardiology to re- establish care. * Telephone Encounter - Sung Ma - 01/01/2025 3:34 PM EDT Tc from patient requesting a referral to see a syrup mixer. Patient reports that it has been several years since last evaluation and mentions having a mallita (possible stent). documented in this encounter Plan of Treatment Upcoming Encounters Date Type Department Care Team (Late st Contact Info) Description 08/21/2025 3:45 PM EST Office Visit [facility] MEDICINE [address] [place], [place] [phone] Galina Arrington MD [address] [place], [place] [phone] 10/06/2025 2:30 PM EDT Office Visit [facility] OPTOMETRY [address] [place], [place] [phone] Jazmin Santiago OD [address] [place], [place] [phone] documented as of this encounter Visit Diagnoses Not on filedocumented in this encounter Care Teams Electrical Maintenance Engineer Relationship Specialty Start Date End Date Galina Arrington MD 230 [place] [address] PCP - General Family Medicine 08/31/20 documented as of this encounter
--- OUTSIDE RECORDS SUMMARY | 2025-05-29 15:36 | XMS_ITS | Encounter Summary ---
Author Organization [employer] Address 75 [facility] 7t [place] [address] Care Team Providers Care Acid Cleaner Name Role Phone Galina Arrington MD Primary Care Provider [phone] Encounter Details Date Type Department Care Team (Late Contact Info) Description 03/21/2023 Orders Only [facility] MEDICINE [address] [place] [address] [phone] Galina Arrington MD [address] [place] [address] [phone] Social History Tobacco Use Types Packs/Day Years [...] Description 08/21/2025 3:45 PM EST Office Visit [facility] MEDICINE [address] [place] [address] [phone] Galina Arrington MD 230 [place] [address] 10/06/2025 2:30 PM EDT Office Visit [facility] OPTOMETRY [address] [place], [place] [phone] Jazmin Santiago, OD [address] [place] [address] documented as of this encounter Visit Diagnoses Not on filedocumented in this encounter Care Teams Acid Cleaner Relationship Specialty Start Date End Date Galina Arrington MD 230 [place] [address] PCP - General Family Medicine 08/31/20 documented as of this encounter
--- OUTSIDE RECORDS SUMMARY | 2025-05-29 15:36 | XMS_ITS | Encounter Summary ---
Author Organization [employer] Address 75 [facility] 7t [place] [address] Care Team Providers Care Home Energy Rater Name Role Phone Galina Arrington MD Primary Care Provider Encounter Details Date Type Department Care Team (Late st Contact Info) Description 08/13/2023 Orders Only [facility] MEDICINE [address] [place], [place] [phone] Galina Arrington MD [address] [place], [place] [phone] Screening for colon cancer (Primary Dx) Social [...] 3:45 PM EST Office Visit [facility] MEDICINE [address] [place] [address] Galina Arrington MD 230 [place] [address] 10/06/2025 2:30 PM EDT Office Visit [facility] OPTOMETRY [address] [place] [address] Jazmin Santiago, OD [address] [place] [address] documented as of this encounter Visit Diagnoses Diagnosis Screening for colon cancer- Primary Special screening for malignant neoplasms, colon documented in this encounter Care Teams Home Energy Rater Relationship Specialty Start Date End Date Galina Arrington MD [address] [place] [address] PCP - General Family Medicine 08/31/20 documented as of this encounter
--- OUTSIDE RECORDS SUMMARY | 2025-05-29 15:36 | XMS_ITS | Encounter Summary ---
Author Organization [employer] Address [address] [facility] 7t [place] [address] Care Team Providers Care Quality Assurance Calibrator Name Role Phone Galina Arrington MD Primary Care Provider [phone] Reason for Referral * Consultation (Routine) - Closed Specialty Diagnoses / Procedures Referred By Contac t Referred To Contact Cardiology Diagnoses Coronary artery disease involving peoria coronary artery of peoria heart without angina pectoris Galina Arrington MD [address] [place] [address] Phone: tel: fax: [facility] [address] [place], [place] Phone: tel: fax: Referral ID Status Reason Start Date Expiration Date V isits Requested Visits Authorized [id number] Closed Specialty Services Required 01/05/2025 01/05/2026 1 1 Encounter Details Date Type Department Care Team (Late st Contact Info) Description 01/05/2025 Orders Only [facility] MEDICINE 230 [place], [place] [phone] Galina Arrington MD [address] [place], [place] [phone] Coronary artery disease involving peoria coronary artery of peoria heart without angina pectoris (Primary Dx) Social [...] Description 08/21/2025 3:45 PM EST Office Visit [facility] MEDICINE [address] [place] [address] Galina Arrington MD [address] [place] [address] 10/06/2025 2:30 PM EDT Office Visit [facility] OPTOMETRY [address] [place] [address] Jazmin Santiago, ED [address] [place] [address] Scheduled Referrals Name Type Priority Associated Diagnoses Order Schedule Referral to Cardiology Outpatient Referral Routine Coronary artery disease involving peoria coronary artery of peoria heart without angina pectoris Expected: 01/05/2025 (Approximate), Expires: 01/05/2026 documented as of this encounter Visit Diagnoses Diagnosis Coronary artery disease involving peoria coronary artery of peoria heart without angina pectoris- Primary documented in this encounter Care Teams Quality Assurance Calibrator Relationship Specialty Start Date End Date Galina Arrington MD [address] [place] [address] PCP - General Family Medicine 08/31/20 documented as of this encounter
--- OUTSIDE RECORDS SUMMARY | 2025-05-29 15:36 | XMS_ITS | Encounter Summary ---
Author Organization [employer] Address [address] [facility] 7t [place] [address] Care Team Providers Care Cna Per Diem Name Role Phone Galina Arrington MD Primary Care Provider [phone] Reason for Visit * Reason Onset Date Comments Med Refill 04/15/2025 Encounter Details Date Type Department Care Team ([facility] st Contact Info) Description 04/15/2025 Telephone [facility] MEDICINE [address] [place], [place] [phone] Galina Arrington MD 230 [place], [place] [phone] Med Refill Social History Tobacco Use Types [...] 40 MG tablet [id number] - [address] AT [facility] documented in this encounter Plan of Treatment Upcoming Encounters Date Type Department Care Team ([facility] st Contact Info) Description 08/21/2025 3:45 PM EST Office Visit [facility] MEDICINE [address] [place], [place] [phone] Galina Arrington MD 230 [place], [place] [phone] 10/06/2025 2:30 PM EDT Office Visit [facility] OPTOMETRY [address] [place] [address] Jazmin Santiago, OD [address] [place] [address] documented as of this encounter Visit Diagnoses Not on filedocumented in this encounter Additional Health Concerns Assessment Noted Time PHQ-9 Depression Total Score: 0 02/07/20 25 4:18 PM EDT documented as of this encounter Care Teams Cna Per Diem Relationship Specialty Start Date End Date Galina Arrington MD 230 [place] [address] PCP - General Family Medicine 08/31/20 documented as of this encounter
--- OUTSIDE RECORDS SUMMARY | 2025-05-29 15:36 | XMS_ITS | Encounter Summary ---
Author Organization [employer] Address 75 [facility] 7t [place] [address] Care Team Providers Care Director Strategic Account Management Name Role Phone Galina Arrington MD Primary Care Provider [phone] Encounter Details Date Type Department Care Team (Late st Contact Info) Description 03/30/2025 Orders Only [facility] MEDICINE [address] [place], [place] [phone] Treva Ingram MD [address] [place], [place] [phone] Social History Tobacco Use Types Packs/Day Years [...] Office Visit [facility] MEDICINE [address] [place] [address] Galina rArington MD 230 [place] [address] 10/06/2025 2:30 PM EDT Office Visit [facility] OPTOMETRY [address] [place] [address] Jazmin Santiago, OD [address] [place] [address] documented as of this encounter Visit Diagnoses Not on filedocumented in this encounter Additional Health Concerns Assessment Noted Time PHQ-9 Depression Total Score: 0 02/07/20 25 4:18 PM EDT documented as of this encounter Care Teams Director Strategic Account Management Relationship Specialty Start Date End Date Galina Arrington MD [address] [place] [address] PCP - General Family Medicine 08/31/20 documented as of this encounter
== END 2025-05-29 13:31 | disposition home or self-care (01) ==
LOC: HO.HHCL 13:30
PROVIDERS: PCP General Practice; Visit Provider General Practice
DX: E11.65 Type 2 diabetes mellitus with hyperglycemia (principal)
CPT/HCPCS: 36415; 83036